=== PATIENT | male | born 1955 | race Caucasian/White ===

== ENCOUNTER → 2018-08-10 07:22 | Outpatient (CLI) | payer BC, SELFPAY ==
[2018-08-10 09:39] LABS: Alanine Aminotransferase 35 U/L (12-78); Albumin Level 3.9 gm/dL (3.4-5.0); Albumin/Globulin Ratio 1.3 (1.1-1.8); Alkaline Phosphatase 76 U/L (46-116); Anion Gap 14.7 mEq/L (5-15); Aspartate Amino Transferase 18 U/L (15-37); Bilirubin,Total 0.4 mg/dL (0.2-1.0); Blood Urea Nitrogen 32 mg/dL (7-18); Calcium 8.7 mg/dL (8.5-10.1); Carbon Dioxide 28 mmol/L (21.0-32.0); Chloride 105 mmol/L (98-107); Chol/HDL Ratio 2.8 (1-3.5); Cholesterol 159 mg/dL (140-200); Creatinine,Serum 1.05 mg/dL (0.70-1.30); Estimated Glomerular Filt Rate 71 ml/min (>60); GFR (African American) 86 ML/MIN (>60); Glucose 94 mg/dL (74-106); HDL Cholesterol 56 mg/dL (27-67); LDL Cholesterol 78 mg/dL (0-130); Potassium 4.7 mmoL/L (3.5-5.1); Sodium 143 mmol/L (136-145); Thyroid Stimulating Hormone 2.98 uIU/ml (0.358-3.740); Total Protein,Serum 6.9 gm/dL (6.4-8.2); Triglycerides 123 mg/dL (30-200); VLDL Cholesterol 25 mg/dL (0-40)
== END ==
PROVIDERS: Visit Provider Family Medicine
DX: E03.9 Hypothyroidism, unspecified (principal); E78.5 Hyperlipidemia, unspecified; I10 Essential (primary) hypertension
CPT/HCPCS: 36415; 80053; 80061; 84443

== ENCOUNTER → 2019-09-27 11:17 | Outpatient (CLI) | payer BC, SELFPAY ==
--- NOTE | 2019-09-27 11:21 | XR_ITS ---
PROCEDURE: XR CERVICAL SPINE 5V CLINICAL INDICATION: CERVICALGIA Left-sided neck pain with headache COMPARISON: No exams were available for comparison FINDINGS: Prior anterior cervical disc fusion at C5-C6 and C6-C7 with anterior bone plate. Prominent anterior osteophyte is present at the inferior aspect C4 anteriorly. Minimal foraminal narrowing at C4-C5 and C5-C6 on the right, C4-C5 C5-C6 and C6-C7 on the left. Minimal cervical curvature convex left. No fracture or dislocation. No lytic or blastic change. No evidence of cervical rib. IMPRESSION: Postsurgical changes with mild cervical spondylosis as described above. Dictated by: John Thayer MD 09/27/2019 13:45 Electronically signed by John Thayer MD in [place] 09/27/2019 13:45
== END ==
PROVIDERS: PCP Family Medicine; Visit Provider Family Medicine
DX: M54.2 Cervicalgia (principal)
CPT/HCPCS: 72050

== ENCOUNTER 2020-11-11 14:44 | Emergency (ER) | payer OTHER, SELFPAY ==
[2020-11-11] VITALS (9 sets, daily range): BP systolic 124–227; BP diastolic 78–124; PULSE 67–106; RESP 16–20; TEMP 36.8–36.9; O2SAT 96–98; BMI 29.0
--- NOTE | 2020-11-11 15:03 | CT_ITS ---
PROCEDURE: CT HEAD/BRAIN WO CON CLINICAL INDICATION: neck pain Neck pain x2 weeks, no fall or injury. Hypertension. COMPARISON: No exams were available for comparison TECHNIQUE: Axial images obtained. All CT scans at the facility use one or more dose reduction, viz: automated exposure control, ma/kV adjustment per patient size (including targeted exams where dose is matched to indication, i.e. head), or iterative reconstruction technique. FINDINGS: There is no hydrocephalus. There is no hemorrhage. There is no mass, or mass effect. There is no CT evidence of acute infarct (clinical exam and MRI are more sensitive). The cerebellar tonsils are ectatic and cause mild crowding of the structures in the foramen magnum. This is nonspecific and usually asymptomatic, correlate to determine if this is related to patient's symptoms. There are no areas of encephalomalacia visible by CT. There are no abnormal fluid collections. The mastoid air cells and middle ears are clear. The calvarium is intact. There is degenerative change of the right temporomandibular joint. Paranasal sinuses are clear. Minimal visualization of the surrounding structures is unremarkable. IMPRESSION: Ectatic cerebellar tonsils of doubtful clinical significance see comments above. Other minor findings as described above. Dictated by: Mayte Ramirez MD 11/11/2020 16:17 Mayte Ramirez MD in [facility] 11/11/2020 16:17
--- NOTE | 2020-11-11 15:03 | CT_ITS ---
PROCEDURE: CT CERVICAL SPINE WO CON CLINICAL INDICATION: neck pain Neck pain x2 weeks. No fall or injury. COMPARISON: CR XR CERVICAL SPINE 5V from 09/27/2019 TECHNIQUE: Axial images obtained with sagittal and coronal reformats. All CT scans at the facility use one or more dose reduction, viz: automated exposure control, ma/kV adjustment per patient size (including targeted exams where dose is matched to indication, i.e. head), or iterative reconstruction technique. Axial spiral CT scanning performed of the cervical spine beginning at the base of the skull and continuing to the upper T-spine. 3-D multiplanar reconstruction with 3-D manipulation of volumetric data set in image rendering was completed by the radiologist and/or technologist with the supervision of the radiologist on independent workstation. FINDINGS: Patient has had prior anterior plate and screw fixation of C5, C6, and C7. There is no acute fracture. Metallic artifact obscures the prevertebral soft tissues of the lower cervical spine. There is no prevertebral soft tissue swelling edema within the upper and mid cervical spine. There is straightening of the normal lordosis of the cervical spine partly secondary to prior surgery however superimposed component muscles of this suspected. There is diffuse endplate osteophyte disc bulge at C4-5 which causes narrowing of the right greater than left neural foramina. At C5-6, diffuse endplate osteophyte disc bulge and uncovertebral degenerative change causes narrowing of right portions of the spinal canal and is bony narrowing, at least moderate of the bilateral neural foramina. At C6-7 there is mild diffuse endplate osteophyte disc bulge which causes moderate bony narrowing of the left neural foramen. The remaining cervical levels demonstrate no significant narrowing and only mild or minimal degenerative change. Thyroid gland is markedly atrophic and there is possibly been resection of the right lobe and isthmus. Correlate with surgical history. There are several calcifications in the right tonsillar pillar which suggests chronic or recurrence tonsillitis. There is typical asymmetry of the oral, pharyngeal, hypo pharyngeal soft tissues. Medial deviation of the right focal cord suggests right vocal cord paralysis. There is scattered bilateral nuchal lymph nodes typical in size and number for an asymptomatic patient. There is marked tortuosity of the left internal carotid artery medially to lie posterior to the hypopharynx displacing the soft tissues anteriorly. Partial assessment of the remaining immediately surrounding structures is otherwise unremarkable. IMPRESSION: 1. No acute fracture or dislocation. 2. Suspected muscle spasm 3. Scattered degenerative findings and mild spinal canal narrowing and several levels of moderate foraminal narrowing which could impinge on the respective exiting cervical nerve roots. 4. Other nonacute findings as described above. Dictated by: Mayte Ramirez MD 11/11/2020 16:28 Mayte Ramirez MD in [place] 11/11/2020 16:28
--- NOTE | 2020-11-11 15:38 | HMH.EDGENADL ---
ED Disposition Clinical Impression: Cervical disc disease Headache Qualifiers: Headache type: unspecified Headache chronicity pattern: chronic headache Intractability: intractable Qualified Code(s): R51.9 - Headache, unspecified Hypertension Qualifiers: Hypertension type: essential hypertension Qualified Code(s): I10 - Essential (primary) hypertension Disposition: Home, Self-Care Condition on Discharge: Fair Instructions: DI for Neck Pain, DI for Headache Additional Instructions: Additional instructions for HEADACHE: See your physician as soon as possible for further evaluation. Return immediately if worsening headache, vomiting, problems with vision or speech, fever, numbness or weakness of the extremities, neck pain or stiffness. Additional instructions for NECK PAIN: See your physician as soon as possible for further evaluation. Return immediately if neck pain becomes intolerable, or if fever, numbness or weakness of your arms or legs, loss of control of your bowels or bladder. Additional instructions for CONTROLLED SUBSTANCES: You have been prescribed a medication that is a controlled substance. Controlled substances include pain medications known as opiates and sedative nerve medications known as benzodiazepines. Tramadol, fioricet, and gabapentin are also controlled substances. Some common opiates include: Codeine (such as Tylenol #3) Hydrocodone (Vicodin, Lortab, Lorcet, [place]) Oxycodone (Percocet, Percodan, Oxycodone, Oxy IR) Some common benzodiazepines include: Diazepam (Valium) Lorazepam (Ativan) Alprazolam (Xanax) Clonazepam (Klonopin) Oxazepam (Serax) All of these controlled substances are highly addictive and frequently abused. Misuse can and frequently does lead to addiction as well as overdose and . Medication should be stored in a locked cabinet or other secure storage unit. Do not store the medication in a motor vehicle. Short term supplies, 3 days or less, are prescribed because of the highly addictive nature of the medication. Any of the controlled substance medication NOT taken should be disposed of properly and NOT SAVED. The recommended method of disposing of unused medications is: Place the medicines in a sealable plastic bag. If the medicine is a solid, crush it or add water to dissolve it. Add something undesirable (cat litter, coffee grounds, etc.) Dispose of sealed bag in household trash Do not flush or pour unused medicines down a sink or drain. Controlled substances should not be shared, given away or sold. Because of the addictive nature and frequent abuse, these medications are sometimes stolen. These medications should be kept in a safe place where they cannot be stolen. Do not keep them in your car or purse. Lost or stolen prescriptions for controlled substances WILL NOT BE REFILLED in this emergency department, regardless of whether a police report was filed. Prescriptions: Oxycodone HCl/Acetaminophen [Percocet 5/325mg tablet] 1 tab PO Q6HP PRN #15 tablet PRN Reason: Moderate To Severe Pain Transmission Status: Sent to [facility] Referrals: [place] MD [Primary Care Provider] - - Critical Care Critical Care Time: No Attestation: On 11/11/20, the high probability of a clinically significant, sudden or life threatening deterioration of the following system(s) required my full and direct attention, intervention and personal management. The time I documented below is in addition to time spent performing reported procedures but includes the following listed in this critical care notation. Medical Decision Making - Jorge Inquiry Pt receiving controlled substance: Yes Jorge was queried for this patient: Yes Risks and benefits of using a controlled substance: were discussed with pt by me Comment: no rxs. Vital Signs: 11/11/20 14:45 11/11/20 15:54 11/11/20 16:00 Temperature 98.2 F Temperature Source Oral Pulse
--- NOTE | 2020-11-11 17:00 | PC.NURSE ---
Harding visitor yelling for help, found pt standing at the sink, pale and clammy. He advised he felt very dizzy and nauseated. Pt was assisted by myself and into the bed and Dr. Segovia came to the bedside. Pt denied any chest pain and just advises he felt dizzy. Pt given cool rag and laid back in the bed. Pressure obtained and it had decreased quite a bit. Pt advises he just felt nauseated. Rail placed up and pt given call and lights dimmed, advised him to lay still for a few moments and rest.
--- NOTE | 2020-11-11 17:45 | PC.NURSE ---
Pt sitting up in the bed with rag on his head, color has returned to pt face and he advises he is feeling better
--- NOTE | 2020-11-11 17:54 | PC.NURSE ---
Patient assisted to stand, patient able to stand and ambulate without difficulty, denies dizziness. MD notified.
== END 2020-11-11 18:13 | disposition home or self-care (01) ==
PROVIDERS: Emergency Provider Emergency Medicine; PCP Family Medicine
DX: S16.1XXA Strain of muscle, fascia and tendon at neck level, initial encounter (principal); X50.0XXA Overexertion from strenuous movement or load, initial encounter; Y92.69 Other specified industrial and construction area as the place of occurrence of the external cause; Y99.0 Civilian activity done for income or pay; M50.90 Cervical disc disorder, unspecified, unspecified cervical region
CPT/HCPCS: 70450; 72125; 99283

== ENCOUNTER 2020-11-13 09:08 | Observation (INO) | payer BC, MEDICARE, SELFPAY ==
[2020-11-13] VITALS (50 sets, daily range): BP systolic 145–225; BP diastolic 70–115; PULSE 53–88; RESP 10–22; TEMP 36.3–36.8; O2SAT 91–100; BMI 28.1; BMI 28.0
--- NOTE | 2020-11-13 09:05 | ECG_ITS ---
APPROVED REPORT Exam: Resting ECG HR:79 bpm ECG Measurements Heart Rate 79 AXES OR 152 P 54 QRSd 78 QRS -39 QT 388 T 14 QTc 444 Conclusion Normal sinus rhythm Left axis deviation Moderate voltage criteria for LVH, may be normal variant Abnormal ECG Electronically signed by : Ayaz Mariano, 11/13/2020 14:54:17
--- NOTE | 2020-11-13 09:10 | HMH.EDGENADL ---
ED Disposition Clinical Impression: Uncontrolled hypertension, Elevated troponin, Neck pain Chest pain Qualifiers: Chest pain type: unspecified Qualified Code(s): R07.9 - Chest pain, unspecified Headache Qualifiers: Headache type: unspecified Headache chronicity pattern: chronic headache Intractability: intractable Qualified Code(s): R51.9 - Headache, unspecified Disposition: Admitted as Observation Condition on Discharge: Fair - Critical Care Critical Care Time: Yes Attestation: On , the high probability of a clinically significant, sudden or life threatening deterioration of the following system(s) required my full and direct attention, intervention and personal management. The time I documented below is in addition to time spent performing reported procedures but includes the following listed in this critical care notation. Total Critical Care Time: 30 Vital system(s) involved:: Circulatory Failure My critical care processes included: Assessment & monitoring of V/S, Initial and Re-exams, Data Review/Interpretation, Coordinating Care, Medication Orders and management, Documentation Medical Decision Making - Medical Records Medical records reviewed: Yes: I reviewed the patient's medical records. MR Comment: prior [facility], see below - Jorge Inquiry Pt receiving controlled substance: Yes Jorge was queried for this patient: No Reason not queried -: Emergent pt cond-no time Risks and benefits of using a controlled substance: were not discussed with pt by me Vital Signs: 11/13/20 09:09 11/13/20 09:30 11/13/20 09:40 Temperature 97.8 F Temperature Source Oral Pulse Rate [Right Radial] 88 79 80 Respiratory Rate 18 18 18 Blood Pressure [Left Arm] Blood Pressure [Right Arm] 220/114 H 207/114 H 207/110 H Blood Pressure Mean [Left Arm] Blood Pressure Mean [Right Arm] 149 145 142 Blood Pressure Source [Left Arm] Blood Pressure Source [Right Arm] Automatic Cuff Automatic Cuff Automatic Cuff Blood Pressure Position [Left Arm] Blood Pressure Position [Right Arm] Sitting Sitting Sitting 02 Sat by Pulse Oximetry 96 97 97 Oxygen Delivery Method Room Air Room Air Oxygen Flow Rate (LPM) 11/13/20 09:50 11/13/20 10:00 11/13/20 10:10 Temperature Temperature Source Pulse Rate [Right Radial] 76 84 71 Respiratory Rate 18 Blood Pressure [Left Arm] Blood Pressure [Right Arm] 188/104 H 199/104 H 225/110 H Blood Pressure Mean [Left Arm] Blood Pressure Mean [Right Arm] 132 135 148 Blood Pressure Source [Left Arm] Blood Pressure Source [Right Arm] Blood Pressure Position [Left Arm] Blood Pressure Position [Right Arm] Sitting 02 Sat by Pulse Oximetry 96 97 94 L Oxygen Delivery Method Room Air Room Air Oxygen Flow Rate (LPM) 11/13/20 10:16 11/13/20 10:30 11/13/20 11:00 Temperature Temperature Source Pulse Rate [Right Radial] 83 80 65 Respiratory Rate 18 18 12 Blood Pressure [Left Arm] Blood Pressure [Right Arm] 205/112 H 225/110 H 186/87 H Blood Pressure Mean [Left Arm] Blood Pressure Mean [Right Arm] 143 148 120 Blood Pressure Source [Left Arm] Blood Pressure Source [Right Arm] Automatic Cuff Automatic Cuff Automatic Cuff Blood Pressure Position [Left Arm] Blood Pressure Position [Right Arm] Sitting Left Lateral Sitting 02 Sat by Pulse Oximetry 92 L 98 99 Oxygen Delivery Method Nasal Cannula Room Air Oxygen Flow Rate (LPM) 2 11/13/20 11:10 11/13/20 11:20 11/13/20 11:30 Temperature Temperature Source Pulse Rate [Right Radial] 69 67 60 Respiratory Rate Blood Pressure [Left Arm] Blood Pressure [Right Arm] 170/89 H 173/87 H 172/80 H Blood Pressure Mean [Left Arm] Blood Pressure Mean [Right Arm] 116 115 110 Blood Pressure Source [Left Arm] Blood Pressure Source [Right Arm] Blood Pressure Position [Left Arm] Blood Pressure Position [Right Arm] 02 Sat by Pulse Oximetry 98 99 99 Oxygen Delivery Method Nasal Cannula Nasal Cannul
--- NOTE | 2020-11-13 09:14 | XR_ITS ---
PROCEDURE: XR CHEST PORTABLE CLINICAL HISTORY: chest pain COMPARISON: CR CXR CHEST(2 VIEWS-NOT PORTABLE) from 01/22/2016 FINDINGS: There are well expanded. There is no definite pneumonic infiltrate and there is no pleural fluid. There is borderline cardiomegaly however is no pulmonary congestion. There has been a previous anterior cervical fusion. IMPRESSION: Borderline cardiomegaly, no acute chest pathology noted Dictated by: Dr. Rob Cloud MD 11/13/2020 10:10 Dr. Rob Cloud MD in [place] 11/13/2020 10:10
[2020-11-13 09:23] LABS: Basophils % 0.4 % (0.1-2.0); Eosinophils # 0.2 K/mm3 (0.0-0.4); Eosinophils % 2.2 % (0.1-12.0); Hematocrit 38.5 % (42.0-52.0); Hemoglobin 12.5 g/dL (14.1-18.0); Lymphocytes % 12.7 % (10-50); Mean Corpuscular HGB Conc 32.4 g/dL (31.8-35.4); Mean Corpuscular Hemoglobin 28.4 pg (27.0-31.2); Mean Corpuscular Volume 87.7 fl (80-94); Mean Platelet Volume 7.7 fl (7.4-10.4); Monocytes # 0.4 K/mm3 (0.1-1.0); Monocytes % 5.7 % (1.7-9.3); Neutrophils # 5.9 K/mm3 (1.8-7.8); Neutrophils % 78.9 % (37.0-80.0); Platelet Count 195 K/mm3 (142-424); Red Blood Count 4.39 M/mm3 (4.60-6.20); Red Cell Distribution Width 14.5 % (11.5-17.5); White Blood Count 7.5 K/mm3 (4.8-10.8)
--- NOTE | 2020-11-13 09:23 | PC.NURSE ---
rad at BS for portable xray
[2020-11-13 09:25] LABS: Chloride 108 mmol/L (98-107); Sodium 140 mmol/L (136-145)
[2020-11-13 09:28] LABS: Blood Urea Nitrogen 29 mg/dl (9-20); Creatinine Clearance Estimated 84 mL/min (50-200); Estimated Glomerular Filt Rate 75 ml/min (>60); GFR (African American) 90 ML/MIN (>60)
[2020-11-13 09:29] LABS: Anion Gap 3.7 mEq/L (5-15); Calcium 8.6 mg/dl (8.4-10.2); Carbon Dioxide 31 mmol/L (22.0-30.0); Glucose 109 mg/dl (74-100)
--- NOTE | 2020-11-13 09:30 | PC.NURSE ---
notified ER of critical potassium
[2020-11-13 09:31] LABS: Potassium 2.7 mmoL/L (3.5-5.1)
--- NOTE | 2020-11-13 09:51 | PC.NURSE ---
notified shanell huang for cardiology of pt per ER request
--- NOTE | 2020-11-13 09:52 | PC.NURSE ---
nitro drip increased to 10 mcg/min at this time.
--- NOTE | 2020-11-13 09:53 | PC.NURSE ---
DR CHINCHILLA SPEAKING WITH DR BRISCOE
--- NOTE | 2020-11-13 09:58 | PC.NURSE ---
shanell huang at gave verbal order given per shanell huang for echo , notified cv lab of order for pt-spoke with avi
--- NOTE | 2020-11-13 10:00 | CA_ITS ---
APPROVED REPORT EXAM: Comprehensive 2D, Doppler, and color-flow Echocardiogram Health Benefits Specialist: Martine Foley RT(R) Ht: 5 ft 7 in Wt: 180lbs BSA: 1.93 BP: 222/114 mmHg Indications: CP, HTN, SOB, neck pain 2D Dimensions LVOT 1.96 cm (M/F) 1.5-2.5 LVEF (Harp's) 51.20 % M: 52 - 72 LV Volume 135.80 mL M: 62 - 150 LV Volume Index 70.36 mL/m2 M: 34 - 74 LA Volume 47.50 mL LA Volume Index 24.61 mL/m2 (M/F) 16-34 M-Mode Dimensions RVDd 2.88 cm (0.9-2.6) LA Diam 3.91 cm (1.9-4.0) LVDd 5.45 cm (3.5-5.7) Ao Diam 2.66 cm (2.0-3.7) LVDs 3.72 cm (3.5-5.7) IVSd 0.96 cm (0.6-1.1) PWd 1.00 cm (0.6-1.1) EF (Teich) 59.20% FS 31.70% EDV (Teich) 144.40 mL ESV (Teich) 58.90 mL LV Diastology E Decel Time 210.00 (160-240 msec) E/A Ratio 0.5 MED E' 4.60 (< 7 cm/sec) E'/MED E' Ratio 13.04 (>14) LAT E' 5.20 (<10 cm/sec) E/LAT E' Ratio 11.54 (>14) Aortic Valve LVOT Max 153.00 (70-110 cm/s) LVOT VTI 31.16 cm AoV Peak Noe. 179.00 (50-130 cm/s) AI PHT 740.00 ms AO Peak GR. 12.80 mmHg AO Mean GR. 7.10 (<5 mmHg) AO VTI 33.98 (18-25 cm) AI (VTI) 2.77 (2.5-4.5 cm2) Mitral Valve MV E Max Noe. 60.00 (40-130 cm/s) MV A Velocity 111.00 (40-130 cm/s) E/A Ratio 0.54 MV Decel. Time 210.00 (160-240 ms) MV PHT 62.00 ms Left Ventricle Left atrium is mildly enlarged, left ventricle is normal size, mild concentric left ventricular hypertrophy, visually estimated ejection fraction 55% with no regional wall motion abnormality, grade 1 diastolic dysfunction seen without tissue Doppler evidence of raise left atrial pressure. Right Ventricle Right atrium is normal size, right ventricle is mildly enlarged with normal contractility. Aortic Valve Aortic valve is minimally thickened and fibrosed, there is no aortic stenosis, there is mild aortic insufficiency. Mitral Valve Mitral valve is grossly normal, there is trace mitral regurgitation. Tricuspid Valve Tricuspid valve is grossly normal, there is trace tricuspid regurgitation, tricuspid regurgitation jet velocity is inadequate for calculation of the right ventricular systolic pressure. Pulmonic Valve Pulmonic valve is poorly visualized. Great Vessels Aortic root is of normal size. Pericardium No significant pericardial effusion noted. Conclusion 1. Mildly enlarged left atrium, normal left ventricular size, mild concentric left ventricular hypertrophy, visually estimated ejection fraction 55% with no regional wall motion abnormality, grade 1 diastolic dysfunction seen without tissue Doppler evidence of raise left atrial pressure. 2. Mildly enlarged right ventricle with normal contractility. 3. Mild aortic, mild mitral and tricuspid regurgitation. 4. No significant pericardial effusion noted. Electronically signed by : Shahriar Peralta, 11/13/2020 11:02:57
--- NOTE | 2020-11-13 10:15 | PC.NURSE ---
nitro drip titrated up to 15 mcg/min at this time
[2020-11-13 10:16] LABS: Thyroid Stimulating Hormone 3.92 uIU/mL (0.465-4.68)
--- NOTE | 2020-11-13 10:16 | PC.NURSE ---
cv lab staff at for echo
--- NOTE | 2020-11-13 10:31 | PC.NURSE ---
nitro drip increased to 20mcg/min
--- NOTE | 2020-11-13 10:36 | PC.NURSE ---
notified care management of admission
--- NOTE | 2020-11-13 10:41 | HMH.CNCARD ---
History of Present Illness Consult date: 11/13/20 Requesting physician: [place] Consult reason: chest pain Chief complaint: CP, Neck pain, HTN urgency Additional Medical History:: 1. Normal coronary arteries, left heart catheterization, 2016, Dr. Telly Lim 2. Hypertension A. Hypertensive urgency, 11/13/2020 with elevated troponin but echocardiogram showing preserved ejection fraction. Elevated troponin felt secondary to demand ischemia related to the hypertensive urgency. 3. Hyperlipidemia 4. History of cervical neck surgery involving removal of 2 discs and use of cadaver bone and rods/pins. A. Injury at work, 10/2019 with reaggravation of prior neck issues. History of present illness: 65-year-old white male seen in the emergency department for chest discomfort and elevated blood pressure. Patient relates neck surgery in 2015 with a recent injury at work earlier this month reaggravating the symptoms. He was seen in the ER 2 days ago for severe head and neck pain with a negative work-up. During that time he was noted to have elevated blood pressure and was treated with p.o. clonidine with subsequent improvement in blood pressure but some orthostatic symptoms that resolved during the ER visit. Today patient states he felt his blood pressure was elevated and after being checked at work was transported via EMS to ER for further evaluation. Patient is currently on a nitroglycerin drip and will titrated up to achieve a systolic blood pressure around 170 mmHg. Patient has been taking 3 [id number] ibuprofen every 5 hours since his recent neck injury earlier this month. This may be adding to his elevated blood pressure but he suspects that most of his blood pressure elevation is related to his severe neck pain. Periodic home blood pressure checks have never been this high. [facility] History Medical History: Denies:: Diabetes Mellitus Type 1, Diabetes Mellitus Type 2, MRSA *Have you ever received a pneumonia vaccine?: No *Have you received a flu vaccine this season?: No Amputation: No Fractures: No - *Social History Smoking Status: Never smoker Alcohol Intake: never *Occupational Status:: employed *Travel in the last 8 weeks: [place] Family Hx:: Non-contributory Meds Home Medications Medication Instructions Recorded Confirmed Type Oxycodone HCl/Acetaminophen 1 tab PO Q6HP PRN #15 tab 11/11/20 11/13/20 Rx [Percocet 5/325mg tablet] Fenofibrate 160 mg PO DAILY 11/13/20 11/13/20 History Levothyroxine Sodium 88 mcg PO DAILY 11/13/20 11/13/20 History [Levothyroxine 88mcg (0.088mg) Tab] Losartan/Hydrochlorothiazide 1 each PO DAILY 11/13/20 11/13/20 History [Losartan-Hctz 50-12.5 mg Tab] Meloxicam 15 mg PO DIRECTED 11/13/20 11/13/20 History Omeprazole [Omeprazole 20mg Tab] 20 mg PO DAILY 11/13/20 11/13/20 History Simvastatin 40 mg PO HS 11/13/20 11/13/20 History Trazodone HCl 50 mg PO DIRECTED 11/13/20 11/13/20 History Allergies Allergy/AdvReac Type Severity Reaction Status Date / Time Penicillins Allergy Intermediate I-RASH Verified 11/13/20 09:28 Exam Vital signs and Labs for Last 24 Hours: Temp Pulse Resp BP Pulse Ox 97.8 F 80 18 225/110 H 98 11/13/20 09:09 11/13/20 10:30 11/13/20 10:30 11/13/20 10:30 11/13/20 10:30 Laboratory Results - last 24 hr 11/13/20 09:10: WBC 7.5, RBC 4.39 L, Hgb 12.5 L, Hct 38.5 L, MCV 87.7, MCH 28.4, MCHC 32.4, RDW 14.5, Plt Count 195, MPV 7.7, Neut % (Auto) 78.9, Lymph % (Auto) 12.7, [place] % (Auto) 5.7, Eos % (Auto) 2.2, Baso % (Auto) 0.4, Neut # (Auto) 5.9, Lymph # (Auto) 1.0, [place] # (Auto) 0.4, Eos # (Auto) 0.2, Baso # (Auto) 0.0 11/13/20 09:10: Sodium 140, Potassium 2.7 L*, Chloride 108 H, Carbon Dioxide 31 H, Anion Gap 3.7 L, BUN 29 H, Creatinine 1.00, Estimated Creat Clear 84, Estimated GFR 75, Est GFR ( Amer) 90, Glucose 109 H, Calcium 8.6, Troponin I 0.20 H 11/13/20 09:10: TSH 3.92 I & O for Last 24
--- NOTE | 2020-11-13 11:05 | P.CONPHA_ITS ---
[facility] VTE Monitoring - Patient Demographics Admission date: 11/13/20 Report Date: 11/13/20 Time: 11:05 Allergies/Adverse Reactions: Patient Allergies Penicillins Allergy (Intermediate, Verified 11/13/20 09:28) I-RASH Height: 1.7 m Weight: 81.647 kg Patient Problems: Current Active Problems Headache (Acute) Chest pain (Acute) Uncontrolled hypertension (Acute) Elevated troponin (Acute) Neck pain (Acute) - VTE Risk Labs: VTE Related Lab Results Hgb 12.5 g/dL (14.1-18.0) L 11/13/20 09:10 Hct 38.5 % (42.0-52.0) L 11/13/20 09:10 Plt Count 195 K/mm3 (142-424) 11/13/20 09:10 BUN 29 mg/dl (9-20) H 11/13/20 09:10 Creatinine 1.00 mg/dl (0.66-1.25) 11/13/20 09:10 Estimated Creat Clear 84 mL/min (50-200) 11/13/20 09:10 - Prophylaxis VTE Prophylaxis Ordered?: Yes Types of VTE Prophylaxis: TEDS Knee High Location of Applied Device: Bilateral Lower Extremeties
--- NOTE | 2020-11-13 11:15 | PC.NURSE ---
Addendum entered by Kendy Angulo RN 11/13/20 11:36: correction sbp 170 Original Note: nitro drip titrated down 15 mcg/min r/t Sbp 172 will continue to monitor
--- NOTE | 2020-11-13 11:15 | HMH.HP ---
*Admission Date: 11/13/20 <Dilma Carrero 11/13/20 11:20> *Chief complaint: chest pain <Dheeraj Carreroa 11/13/20 11:20> *History of present illness: 65-year-old white male seen in the emergency department for chest discomfort and elevated blood pressure. Patient relates neck surgery in 2016 with a recent injury at work earlier this month reaggravating the symptoms. He was seen in the ER 2 days ago for severe head and neck pain with a negative work-up. During that time he was noted to have elevated blood pressure and was treated with p.o. clonidine with subsequent improvement in blood pressure but some orthostatic symptoms that resolved during the ER visit. Today patient states he felt his blood pressure was elevated and after being checked at work was transported via EMS to ER for further evaluation. Patient is currently on a nitroglycerin drip and will titrate up to achieve a systolic blood pressure around 170 mmHg. Patient has been taking 3 [id number] ibuprofen every 5 hours since his recent neck injury earlier this month. This may be adding to his elevated blood pressure but he suspects that most of his blood pressure elevation is related to his severe neck pain. Periodic home blood pressure checks have never been this high. (above as per Davi Hammer) The patient is now on the second floor and at this time he is feeling a little bit better. His neck pain has improved. He continues with a headache. His blood pressure has also improved on the nitroglycerin drip. <AliseDilma 11/13/20 17:14> [facility] History I have reviewed the patient's past medical history: Yes <Dilma Carrero 11/13/20 11:20> Medical History: Reports:: BPH, Gastroesophageal Reflux Disease(GERD), Hyperlipidemia, Hypertension Denies:: Diabetes Mellitus Type 1, Diabetes Mellitus Type 2, MRSA <Dilma Carrero 11/13/20 11:20> *Have you ever received a pneumonia vaccine?: No <Dilma Carrero 11/13/20 11:20> *Have you received a flu vaccine this season?: No <Dilma Carrero 11/13/20 11:20> Other Medical History: Reports: Hypothyroidism, Other (Cervical radiculopathy) <Dilma Carrero 11/13/20 11:20> Other Surgeries: Yes: Cardiac Catheterization, Colonoscopy, Thyroidectomy (partial), Other (Cervical discectomy) <Dheeraj Carreroa 11/13/20 11:20> [facility]: [facility] 11[facility]> Fractures: No <[facility] 11/13/20 11:20> - *Social History Smoking Status: Never smoker <AliseDilma 11/13/20 11:20> Alcohol Intake: never <[facility] 11/13/20 11:20> *Occupational Status:: employed <AliseDilma 11/13/20 11:20> *Travel in the last 8 weeks: Inside the [place] <Dilma Carrero 11/13/20 11:20> Family Hx:: Coronary Artery Disease <[facility] 11/13/20 11:20> Review of Systems - Constitutional Reports weakness, Denies fever(s) <[facility] 11/13/20 17:14> - Eyes Denies blurry vision, Denies double vision <[facility] 11/13/20 17:14> - ENT Denies nasal congestion, Denies sore throat <[facility] 11/13/20 17:14> - *Cardiovascular Reports chest pain, Reports rapid, pounding, or irregular heartbeat, Denies shortness of breath <[facility] 11/13/20 17:14> - *Respiratory Denies cough, Denies shortness of breath <[facility] 11/13/20 17:14> - *Gastrointestinal Reports nausea, Reports vomiting, Denies abdominal pain, Denies loose stools <[facility] 11/13/20 17:14> - *Genitourinary Denies difficulty urinating, Denies painful urination <[facility] 11/13/20 17:14> - *Musculoskeletal Reports neck pain <[facility] 11/13/20 17:14> - *Neurologic Reports headache(s), Reports numbness (chronic in median n. distribution both hands.), Reports dizziness, Reports weakness <[facility] 11/13/20 17:14> Meds Home Medications Medication Instructions Recorded Confirmed Type Oxycodone HCl/Acetaminophen 1 tab PO Q6HP PRN #15 tab 11/11/20 11/13/20 Rx [Percocet 5/325mg tab
--- NOTE | 2020-11-13 11:53 | PC.NURSE ---
pt had an episode of sudden vomitting, notified ER MD, Zofran given per IV as ordered per ER MD by verbal order
--- NOTE | 2020-11-13 11:59 | HMH.PHAINT ---
MEDICATION RECONCILIATION COMPLETED ON PATIENT USING EXTERNAL FILL HISTORY FROM PHARMACY, LIST FROM [facility] OFFICE, AND RUTH REPORT. -LAURENT DUFFYD
--- NOTE | 2020-11-13 12:21 | PC.NURSE ---
per lab 35 minutes left on covid swab result
--- NOTE | 2020-11-13 12:25 | PC.NURSE ---
notified ER MD pt is c/o feeling weird , pt is pale in color, states his chest feels hollow . ER MD to bs and gave verbal orders.
--- NOTE | 2020-11-13 12:29 | ECG_ITS ---
APPROVED REPORT Exam: Resting ECG HR:56 bpm ECG Measurements Heart Rate 56 AXES MO 148 P 47 QRSd 82 QRS -42 QT 438 T -36 QTc 422 Conclusion Sinus bradycardia Left axis deviation Moderate voltage criteria for LVH, may be normal variant Nonspecific T wave abnormality Abnormal ECG Electronically signed by : Ayaz Mariano, 11/13/2020 20:09:31
--- NOTE | 2020-11-13 13:03 | CT_ITS ---
PROCEDURE: CT ANGIO CHEST and CT angio neck CLINCIAL INDICATION: chest, neck pain, htn, r/o dissection COMPARISON: CR CXR CHEST(2 VIEWS-NOT PORTABLE) from 01/22/[address] CERVICAL SPINE WO CON from 11/11/2020 TECHNIQUE: IV Contrast: 70ML Isovue 370 Axial images obtained with sagittal and coronal reformats. All CT scans at the facility use one or more dose reduction, viz: automated exposure control, ma/kV adjustment per patient size (including targeted exams where dose is matched to indication, i.e. head), or iterative reconstruction technique. FINDINGS: There is mild peripheral fibrotic change versus atelectasis. There is no infiltrate. There is no suspicious thoracic adenopathy. Patient had prior cholecystectomy. There is a small hiatal hernia. Minimal visualization of the upper abdomen is otherwise unremarkable. Patient has had prior anterior plate and screw fixation of C5, C6, and C7. There is excellent opacification of the thoracic vasculature. There is no thoracic aortic aneurysm or dissection. The pulmonary arteries are well opacified and demonstrate no pulmonary embolus. The aortic arch has a normal configuration. There is marked tortuosity of the great vessels. The origins of the great vessels are widely patent. The right brachiocephalic artery is widely patent. Right common carotid artery is normal in diameter without stenosis or calcified plaque. Right internal carotid artery is markedly tortuous but normal in diameter. Right external carotid artery is normal in appearance. The left common carotid artery is widely patent at the origin but extremely tortuous without significant narrowing. The left carotid bifurcation extends nearly to midline causing anterior displacement of the soft tissues of the hypopharynx. The left internal carotid artery has a normal diameter to the level of the skull base. The left external carotid artery is unremarkable. The right vertebral artery origin is widely patent. There is marked tortuosity of the right vertebral artery with a focal area of buckling within the right C2 transverse foramen which only appears to cause mild narrowing and no distal dilatation. The right vertebral artery otherwise maintains a normal diameter in appearance to the confluence of the base of the basilar artery. The left vertebral artery origin is patent. There is marked tortuosity of the proximal left vertebral artery which carolin proximally in causes mild narrowing. There is no poststenotic narrowing. Multilevel tortuosity of the left vertebral artery is present throughout the remainder of its course with no additional areas of narrowing. There is a 2 millimeter by 3 mm there right internal carotid artery aneurysm visible on neck CT angiogram images 53 and 54. The bilateral internal carotid arteries and the basilar artery otherwise demonstrate normal diameter and appearance as they traverse the skull base. IMPRESSION: 1. Negative for aortic dissection 2. 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 3. Severe tortuosity of the great vessels and vasculature of the neck causing areas of mild narrowing. Dictated by: Mayte Ramirez MD 11/13/2020 15:34 Mayte Ramirez MD in [place] 11/13/2020 15:34
--- NOTE | 2020-11-13 13:04 | CT_ITS ---
Procedure: CT ANGIO NECK CLINICAL HISTORY: vertigo COMPARISON: Refer to CT angiogram of the chest on the same date which also includes CT angiogram of the neck findings. TECHNIQUE: IV Contrast: 100ml Isovue 370 Axial images obtained with sagittal and coronal reformats. All CT scans at the facility use one or more dose reduction, viz: automated exposure control, ma/kV adjustment per patient size (including targeted exams where dose is matched to indication, i.e. head), or iterative reconstruction technique. FINDINGS: Refer to CT angiogram of the chest on the same date which also includes CT angiogram of the neck findings IMPRESSION: Refer to CT angiogram of the chest on the same date which also includes CT angiogram of the neck findings Dictated by: Mayte Ramirez MD 11/13/2020 15:43 Mayte Ramirez MD in [place] 11/13/2020 15:43
--- NOTE | 2020-11-13 13:28 | PC.NURSE ---
supervisor education called to assist with taking pt to CT due to Nitro drip
--- NOTE | 2020-11-13 13:30 | PC.NURSE ---
pt to CT with OB RN going with pt to monitor nitro drip.
--- NOTE | 2020-11-13 13:30 | PC.NURSE ---
pt going to CT
[2020-11-13 13:40] LABS: Troponin I 0.21 ng/ml (0.00-0.034)
--- NOTE | 2020-11-13 14:02 | PC.NURSE ---
pt return from CT
--- NOTE | 2020-11-13 14:14 | PC.NURSE ---
ER MD states to wait until result of pt CTA to send pt to second floor for admission
--- NOTE | 2020-11-13 14:36 | PC.NURSE ---
increased nitro drip to 20 mcg/min at this time, will continue to monitor
--- NOTE | 2020-11-13 14:53 | PC.NURSE ---
report called to sharee chamberlain at this time
--- NOTE | 2020-11-13 15:05 | PC.NURSE ---
kaushik brought patient to floor
--- NOTE | 2020-11-13 15:30 | PC.NURSE ---
Pt's BP 185/92, HR in 50's. Irene Hammer contacted to address 1500 Lopressor dose, states to hold this dose and instead give 5 mg Norvas PO x 1. Pt was treated w/ IV dilaudid for his neck pain , denies chest pain, but does have a headache he relates to the nitro gtt. Upon arrival to floor Nitro gtt @ 20 mcg/min.
--- NOTE | 2020-11-13 16:20 | PC.NURSE ---
NITRO GTT TITRATED TO 10 MCG/MIN
--- NOTE | 2020-11-13 17:36 | PC.NURSE ---
NITRO GTT INCREASED TO 20 MCG/MIN @ THIS TIME
--- NOTE | 2020-11-13 19:50 | PC.NURSE ---
Nitro gtt titrated to 30 mcg/min
[2020-11-14] VITALS (13 sets, daily range): BP systolic 123–174; BP diastolic 58–90; PULSE 56–73; RESP 15–17; TEMP 36.7–37.3; O2SAT 91–98; BMI 28.0
--- NOTE | 2020-11-14 01:33 | PC.NURSE ---
Nitro gtt titrated to 20 mcg/min
--- NOTE | 2020-11-14 03:58 | PC.NURSE ---
Pt has rested at intervals this shift. Has c/o a headache tonight and nausea. Medicated per nov. Jacqueline Hammer consulted earlier in shift about medication, metoprolol and HR. Go ahead and administer medication. Pt HR has been NSR to sinus humberto. Pt remains on Nitro gtt. Currently infusing @ 20 mcg/min. BP is currently 141/72. No other concerns at this time. Will continue to monitor.
--- NOTE | 2020-11-14 04:51 | PC.NURSE ---
Nitro gtt titrated to 10 mcg/min.
--- NOTE | 2020-11-14 05:57 | PC.NURSE ---
Nitro gtt placed on standby. Pt educated and to report any s/s. VSS at this time. Will continue to monitor.
[2020-11-14 06:57] LABS: Chloride 108 mmol/L (98-107); Potassium 3.6 mmoL/L (3.5-5.1); Sodium 141 mmol/L (136-145)
[2020-11-14 07:00] LABS: Anion Gap 5.6 mEq/L (5-15); Blood Urea Nitrogen 33 mg/dl (9-20); Carbon Dioxide 31 mmol/L (22.0-30.0); Creatinine Clearance Estimated 64 mL/min (50-200); Estimated Glomerular Filt Rate 55 ml/min (>60); GFR (African American) 67 ML/MIN (>60); Glucose 122 mg/dl (74-100)
--- NOTE | 2020-11-14 08:26 | HMH.ACPN2 ---
<Dilma Carrero - Last Filed: 11/14/20 08:26> Internal Medicine - PN: Subj *Date: 11/14/20 *Time: 08:26 Interval history: Patient is feeling better today. His blood pressure is down to normal and his heart rate is normal as well. His headache has improved. His neck pain has also improved. He was able to eat this morning as his nausea and vomiting are better. He also rested well last night. Exam Vital signs and Labs for Last 24 Hours: Temp Pulse Resp BP Pulse Ox 98.1 F 63 16 151/82 H 94 L 11/14/20 04:00 11/14/20 07:00 11/14/20 07:00 11/14/20 07:00 11/14/20 07:00 Laboratory Results - last 24 hr 11/13/20 09:10: WBC 7.5, RBC 4.39 L, Hgb 12.5 L, Hct 38.5 L, MCV 87.7, MCH 28.4, MCHC 32.4, RDW 14.5, Plt Count 195, MPV 7.7, Neut % (Auto) 78.9, Lymph % (Auto) 12.7, [place] % (Auto) 5.7, Eos % (Auto) 2.2, Baso % (Auto) 0.4, Neut # (Auto) 5.9, Lymph # (Auto) 1.0, [place] # (Auto) 0.4, Eos # (Auto) 0.2, Baso # (Auto) 0.0 11/13/20 09:10: Sodium 140, Potassium 2.7 L*, Chloride 108 H, Carbon Dioxide 31 H, Anion Gap 3.7 L, BUN 29 H, Creatinine 1.00, Estimated Creat Clear 84, Estimated GFR 75, Est GFR ( Amer) 90, Glucose 109 H, Calcium 8.6, Troponin I 0.20 H 11/13/20 09:10: TSH 3.92 11/13/20 13:08: Troponin I 0.21 H 11/13/20 15:54: Troponin I 0.20 H 11/14/20 06:15: Sodium 141, Potassium 3.6 D, Chloride 108 H, Carbon Dioxide 31 H, Anion Gap 5.6, BUN 33 H, Creatinine 1.30 H D, Estimated Creat Clear 64, Estimated GFR 55 L, Est GFR ( Amer) 67 D, Glucose 122 H, Calcium 8.0 L I & O for Last 24 hours: Intake & Output 11/11/20 11/12/20 11/13/20 11/14/20 11:59 11:59 11:59 11:59 Intake Total 147 / 147 Output Total 700 / 700 Balance -553 / -553 Weight 180 lb 178 lb 8 oz Microbiology Reports for the Last 24 Hours: Microbiology 11/13/20 10:40 Nasopharyngeal Coronavirus COVID-19 PCR - Final - Constitutional no acute distress - *Routine Respiratory Exam Present: CTA bilaterally - *Routine Cardiovascular Exam Present: RRR - *Routine Abdominal Exam Present: soft, normoactive bowel sounds. Absent: tenderness - *Routine Extremities Exam Absent: cyanosis, clubbing, edema - *Routine Skin Exam Present: warm. Absent: rash - *Routine Neurological Exam Present: alert, oriented X3 Assessment and Plan (1) Uncontrolled hypertension Status: Acute Category: Medical Code(s): I10 - Essential (primary) hypertension (2) Chest pain Status: Acute Qualifiers: Chest pain type: unspecified Qualified Code(s): R07.9 - Chest pain, unspecified Category: Medical Code(s): R07.9 - Chest pain, unspecified (3) Elevated troponin Status: Acute Category: Medical Code(s): R77.8 - Other specified abnormalities of plasma proteins (4) Cervical disc disease Status: Chronic Category: Medical Code(s): M50.90 - Cervical disc disorder, unspecified, unspecified cervical region (5) Hyperlipidemia Status: Chronic Category: Medical Code(s): E78.5 - Hyperlipidemia, unspecified (6) Hypothyroidism Status: Chronic Category: Medical Code(s): E03.9 - Hypothyroidism, unspecified (7) Hypertension Status: Chronic Qualifiers: Hypertension type: essential hypertension Qualified Code(s): I10 - Essential (primary) hypertension Category: Medical Code(s): I10 - Essential (primary) hypertension (8) Cervical radiculopathy Status: Acute Category: Medical Code(s): M54.12 - Radiculopathy, cervical region (9) Hypokalemia Status: Acute Category: Medical Code(s): E87.6 - Hypokalemia - Assessment and plan all Dx Assessment and Plan for all problems:: Blood pressure has improved and patient is off the nitro drip. Dr. Huddleston did order some steroids and muscle relaxants last night and his neck pain is better today. Will discuss further care with Dr. Huddleston. <[place] Hudd[place] - Last Filed: 11/14/20 11:06> Internal Medicine - PN: Subj *
--- NOTE | 2020-11-14 17:54 | PC.NURSE ---
PT IS RESTING IN BED. NO COMPLAINTS OF DISCOMFORT. ALERT AND ORIENTED X4. PT HAS BEEN UP AMBULATING IN THE ROOM. PT STATES THE GABAPENTIN HAS REALLY HELPED WITH THE PAIN HE HAS BEEN HAVING IN HIS NECK. PT ONLY REQUIRED ONE DOSE OF TYLENOL THIS SHIFT FOR A MILD HEADACHE. LUNG SOUNDS CLEAR. ABDOMEN SOFT/ NON TENDER. PT'S BP AT THIS TIME IS 162/89. O2 SATURATION 92-95% ON ROOM AIR. NITRO DRIP WAS DC'D PT WAS TRANSFERRED OUT OF STEP DOWN AT 0900 THIS MORNING. WILL CONTINUE TO MONITOR.
[2020-11-15] VITALS (10 sets, daily range): BP systolic 161–205; BP diastolic 82–108; PULSE 60–71; RESP 16–18; TEMP 36.4–37.1; O2SAT 93–96; BMI 28.0
--- NOTE | 2020-11-15 05:22 | PC.NURSE ---
Pt has rested better tonight. He stated at beginning of shift that he felt better. He states that since he has been on gabapentin. Pain has improved. BP is trending up this AM. Pt also c/o headache. Pt medicated for headache. Will reassess BP after pt has sat down to rest. He is currently ambulating in room at this time. Other VSS. Pt has been NSR on telemetry. Has ambulated in room without difficulty. No other concerns. Will continue to monitor.
--- NOTE | 2020-11-15 08:14 | HMH.ACPN2 ---
Internal Medicine - PN: Subj *Date: 11/15/20 *Time: 08:14 Interval history: He had a good day yesterday with improvement in his neck pain and headaches. His blood pressure did well throughout the day and he was tolerating activity in the room. This morning he states his neck is hurting a little more and he has a dull headache. His blood pressure has been high since early this morning. No chest pain. Exam Vital signs and Labs for Last 24 Hours: Temp Pulse Resp BP Pulse Ox 98.7 F 62 17 166/82 H 95 11/15/20 04:00 11/15/20 04:00 11/15/20 04:00 11/15/20 06:45 11/15/20 04:00 I & O for Last 24 hours: Intake & Output 11/12/20 11/13/20 11/14/20 11/15/20 11:59 11:59 11:59 11:59 Intake Total 867 / 867 1560 / 1560 Output Total 700 / 700 Balance 167 / 167 1560 / 1560 Weight 180 lb 178 lb 8 oz 179 lb Narrative: Alert and oriented. Hard of hearing. Neck with no deformity. Range of motion is decreased secondary to pain. Lungs are clear. Heart is regular. Extremities no edema. Assessment and Plan (1) Uncontrolled hypertension Status: Acute Category: Medical Code(s): I10 - Essential (primary) hypertension (2) Chest pain Status: Acute Qualifiers: Chest pain type: unspecified Qualified Code(s): R07.9 - Chest pain, unspecified Category: Medical Code(s): R07.9 - Chest pain, unspecified (3) Elevated troponin Status: Acute Category: Medical Code(s): R77.8 - Other specified abnormalities of plasma proteins (4) Cervical disc disease Status: Chronic Category: Medical Code(s): M50.90 - Cervical disc disorder, unspecified, unspecified cervical region (5) Hyperlipidemia Status: Chronic Category: Medical Code(s): E78.5 - Hyperlipidemia, unspecified (6) Hypothyroidism Status: Chronic Category: Medical Code(s): E03.9 - Hypothyroidism, unspecified (7) Hypertension Status: Chronic Qualifiers: Hypertension type: essential hypertension Qualified Code(s): I10 - Essential (primary) hypertension Category: Medical Code(s): I10 - Essential (primary) hypertension (8) Cervical radiculopathy Status: Acute Category: Medical Code(s): M54.12 - Radiculopathy, cervical region (9) Hypokalemia Status: Acute Category: Medical Code(s): E87.6 - Hypokalemia - Assessment and plan all Dx Assessment and Plan for all problems:: Continue steroids and gabapentin for his cervical radiculopathy which is improved. Switch metoprolol to extended release twice a day. Add Norvasc 5 mg daily and hydralazine 25 mg 3 times daily. Activity as tolerated.
--- NOTE | 2020-11-15 16:05 | PC.NURSE ---
Addendum entered by Rosalina Riddle RN 11/15/20 18:24: NOTIFED PCP TO LET HIM KNOW PT'S MANUAL BP= RT ARM 198/90, LT ARM 205/98. PT WILL GET ANOTHER DOSE OF METOPROLOL THIS EVENING. NO OTHER ORDERS AT THIS TIME. Original Note: PT IS RESTING IN BED WITH FAMILY IN THE ROOM. BP CONTINUES TO BE ELEVATED. PCP MADE SOME MEDICATION CHANGES. PT STATED HE FELT BETTER YESTERDAY THAN HE DOES TODAY BUT HE DOES NOT WANT TO GO BACK ON THE NITRO DRIP B/C HE STATED IT MADE HIM FEEL AWFUL. PT WAS ABLE TO TOLERATE TAKING A SHOWER THIS SHIFT. PT STATES HE IS HAVING VERY MINIMAL NECK PAIN. LUNG SOUNDS CLEAR. ABDOMEN SOFT/NON TENDER WITH ACTIVE BOWEL SOUNDS. O2 SATURATION 93-96% ON ROOM AIR. WILL CONTINUE TO MONITOR.
[2020-11-16] VITALS (7 sets, daily range): BP systolic 131–190; BP diastolic 71–109; PULSE 50–70; RESP 12–24; TEMP 36.6–37.2; O2SAT 90–95; BMI 28.9
--- NOTE | 2020-11-16 03:47 | PC.NURSE ---
Pt has rested well this shift. Has had less complaints of discomfort this shift.Has c/o headache x1. BP has fluctuated. He is hypertensive this AM. notified. No new orders at this time. Medications administered per nov. Pt has voided x2. No other concerns. Will continue to monitor.
[2020-11-16 06:18] LABS: Chloride 103 mmol/L (98-107); Potassium 4.4 mmoL/L (3.5-5.1); Sodium 138 mmol/L (136-145)
[2020-11-16 06:21] LABS: Anion Gap 4.4 mEq/L (5-15); Blood Urea Nitrogen 60 mg/dl (9-20); Calcium 8.6 mg/dl (8.4-10.2); Carbon Dioxide 35 mmol/L (22.0-30.0); Creatinine Clearance Estimated 66 mL/min (50-200); Estimated Glomerular Filt Rate 55 ml/min (>60); GFR (African American) 67 ML/MIN (>60); Glucose 141 mg/dl (74-100)
--- NOTE | 2020-11-16 08:00 | CA_ITS ---
APPROVED REPORT Sheet Rocker: Gardenia Garcia RVT Indications: hypertensive urgency Risk Factors Hypertension Renal Artery Doppler Proximal (R) 121.4/ cm/sec Mid (R) 134.4/ cm/sec Distal (R) 121.9/ cm/sec Renal Aorta Ratio (R) 1.55 Segmental A. (R) 58.0/13.4 cm/sec RI: 0.76 Segmental A. Sup (R) 58.0/13.4 cm/sec Segmental A. Mid (R) 54.6/19.0 cm/sec Segmental A. Inf (R) 36.8/11.1 cm/sec Proximal (L) 96.8/ cm/sec Mid (L) 115.6/ cm/sec Distal (L) 99.9/ cm/sec Renal Aorta Ratio (L) 1.33 Segmental A. (L) 36.6/9.5 cm/sec RI: 0.74 Segmental A. Sup (L) 33.2/16.2 cm/sec Segmental A. Mid (L) 35.2/12.2 cm/sec Segmental A. Inf (L) 36.6/9.5 cm/sec Renal Measurements Kidney Size (R) 10.7x7.3 cm Cortical Thickness (R) 1.5 cm Kidney Size (L) 11.7x5.9 cm Cortical Thickness (L) 1.5 cm Findings Study suggests no evidence of stenosis of the bilateral renal arteries. There is a 1.7 X 1.6 cm cyst lower pole left kidney. Conclusion Study suggests no evidence of stenosis of the bilateral renal arteries. There is a 1.7 X 1.6 cm cyst lower pole left kidney. Electronically signed by : John Thayer MD 11/16/2020 17:24:19
--- NOTE | 2020-11-16 08:58 | HMH.ACPN2 ---
<Ivette Knowles - Last Filed: 11/16/20 08:58> Internal Medicine - PN: Subj *Date: 11/16/20 *Time: 08:58 Interval history: Patient states that his headache and neck pain are worse. He slept at intervals. He ate breakfast. He denies chest pain and shortness of breath. He is worried about his elevated blood pressure. Blood chemistries this morning show sodium of 138 and potassium of 4.4. BUN is 60 with a creatinine of 1.3. GFR is 55. Patient had a renal artery duplex this a.m. with pending results. Exam Vital signs and Labs for Last 24 Hours: Temp Pulse Resp BP Pulse Ox 98.5 F 65 18 185/109 H 94 L 11/16/20 08:00 11/16/20 08:00 11/16/20 08:00 11/16/20 08:00 11/16/20 08:00 Laboratory Results - last 24 hr 11/16/20 05:26: Sodium 138, Potassium 4.4 D, Chloride 103, Carbon Dioxide 35 H, Anion Gap 4.4 L, BUN 60 H D, Creatinine 1.30 H, Estimated Creat Clear 66, Estimated GFR 55 L, Est GFR ( Amer) 67, Glucose 141 H, Calcium 8.6 I & O for Last 24 hours: Intake & Output 11/13/20 11/14/20 11/15/20 11/16/20 11:59 11:59 11:59 11:59 Intake Total 867 / 867 2039 1320 / 1320 Output Total 700 / 700 Balance 167 / 167 2039 1320 / 1320 Weight 180 lb 178 lb 8 oz 179 lb 184 lb 6 oz - Constitutional no acute distress - *Routine Respiratory Exam Present: CTA bilaterally (Anteriorly and posteriorly) - *Routine Cardiovascular Exam Present: RRR - *Routine Abdominal Exam Present: soft, normoactive bowel sounds. Absent: tenderness - *Routine Extremities Exam Absent: edema - *Routine Neurological Exam Present: alert, oriented X3 Assessment and Plan (1) Uncontrolled hypertension Status: Acute Category: Medical Code(s): I10 - Essential (primary) hypertension (2) Chest pain Status: Acute Qualifiers: Chest pain type: unspecified Qualified Code(s): R07.9 - Chest pain, unspecified Category: Medical Code(s): R07.9 - Chest pain, unspecified (3) Elevated troponin Status: Acute Category: Medical Code(s): R77.8 - Other specified abnormalities of plasma proteins (4) Cervical disc disease Status: Chronic Category: Medical Code(s): M50.90 - Cervical disc disorder, unspecified, unspecified cervical region (5) Hyperlipidemia Status: Chronic Category: Medical Code(s): E78.5 - Hyperlipidemia, unspecified (6) Hypothyroidism Status: Chronic Category: Medical Code(s): E03.9 - Hypothyroidism, unspecified (7) Hypertension Status: Chronic Qualifiers: Hypertension type: essential hypertension Qualified Code(s): I10 - Essential (primary) hypertension Category: Medical Code(s): I10 - Essential (primary) hypertension (8) Cervical radiculopathy Status: Acute Category: Medical Code(s): M54.12 - Radiculopathy, cervical region (9) Hypokalemia Status: Acute Category: Medical Code(s): E87.6 - Hypokalemia (10) Depression Status: Acute Category: Medical Code(s): F32.9 - Major depressive disorder, single episode, unspecified - Assessment and plan all Dx Assessment and Plan for all problems:: Continue with current care. Cardiology to see as well today. We will add Cymbalta for pain and depression. <[place] - Last Filed: 11/16/20 18:48> Internal Medicine - PN: Subj *Date: 11/16/20 *Time: 18:46 Exam Vital signs and Labs for Last 24 Hours: Temp Pulse Resp BP Pulse Ox 98.6 F 61 24 174/94 H 94 L 11/16/20 16:00 11/16/20 16:00 11/16/20 16:00 11/16/20 16:00 11/16/20 16:00 Laboratory Results - last 24 hr 11/16/20 05:26: Sodium 138, Potassium 4.4 D, Chloride 103, Carbon Dioxide 35 H, Anion Gap 4.4 L, BUN 60 H D, Creatinine 1.30 H, Estimated Creat Clear 66, Estimated GFR 55 L, Est GFR ( Amer) 67, Glucose 141 H, Calcium 8.6 I & O for Last 24 hours: Intake & Output 02/2011/15/20 11/16/20 11/17/20 11:59 11:59 11:59 11:59 Intake Total 867 / 867 2039 13
--- NOTE | 2020-11-16 11:29 | HMH.PNCARD ---
Subjective Date: 11/16/20 Time: 11:20 Principal diagnosis: malignant htn Interval history: This is a 65-year-old white gentleman who was admitted to the hospital secondary to malignant hypertension. The patient was initially on a nitroglycerin drip but this has subsequently been stopped. He is now on oral blood pressure medications and his blood pressure remains high this morning. He denies any chest pain or pressure. He denies any shortness of breath or edema. He denies any fever, chills, nausea, vomiting, diarrhea, PND or orthopnea. His only complaint today is his blood pressure. He states that it has remained high and he is very concerned with how high his blood pressure has been running because he does not want to have a stroke. He states that his neck pain has resolved today and he is feeling much better. He states that he would feel even better if he can get his blood pressure under better control. Exam Vital signs and Labs for Last 24 Hours: Temp Pulse Resp BP Pulse Ox 98.5 F 65 18 185/109 H 94 L 11/16/20 08:00 11/16/20 08:00 11/16/20 08:00 11/16/20 08:00 11/16/20 08:00 Laboratory Results - last 24 hr 11/16/20 05:26: Sodium 138, Potassium 4.4 D, Chloride 103, Carbon Dioxide 35 H, Anion Gap 4.4 L, BUN 60 H D, Creatinine 1.30 H, Estimated Creat Clear 66, Estimated GFR 55 L, Est GFR ( Amer) 67, Glucose 141 H, Calcium 8.6 I & O for Last 24 hours: Intake & Output 11/13/20 11/14/20 11/15/20 11/16/20 23:59 23:59 23:59 23:59 Intake Total 2307 / 2427 1440 / 1440 480 / 480 Output Total 500 / 700 200 / 200 Balance -500 / -700 2107 / 2227 1440 / 1440 480 / 480 Weight 179 lb 6 oz 178 lb 8 oz 179 lb 184 lb 6 oz Narrative: echo shows: 1. Mildly enlarged left atrium, normal left ventricular size, mild concentric left ventricular hypertrophy, visually estimated ejection fraction 55% with no regional wall motion abnormality, grade 1 diastolic dysfunction seen without tissue Doppler evidence of raise left atrial pressure. 2. Mildly enlarged right ventricle with normal contractility. 3. Mild aortic, mild mitral and tricuspid regurgitation. 4. No significant pericardial effusion noted. - Constitutional no acute distress, average body habitus - *Routine HEENT Exam Head: Present: normocephalic, atraumatic Eye: Present: EOMI, PERRL ENT: Present: mucous membranes moist - *Routine Neck Exam Present: supple, full ROM, normal carotid upstroke. Absent: JVD, carotid bruit, lymphadenopathy - *Routine Respiratory Exam Present: CTA bilaterally - *Routine Cardiovascular Exam Present: RRR, Normal S1, Normal S2, bradycardia. Absent: murmur - *Routine Abdominal Exam Present: soft, normoactive bowel sounds. Absent: tenderness, distended - *Routine Extremities Exam Present: full ROM, pulses intact, normal capillary refill. Absent: cyanosis, clubbing, edema - *Routine Skin Exam Present: intact, warm. Absent: erythema, rash - *Routine Neurological Exam Present: alert, oriented X3, CN II-XII intact. Absent: sensory deficit, motor deficit Progress Note: A&P (1) Uncontrolled hypertension Status: Acute (2) Elevated troponin Status: Acute (3) Cervical disc disease Status: Chronic (4) Hyperlipidemia Status: Chronic (5) Hypothyroidism Status: Chronic (6) Hypertension Status: Chronic (7) Cervical radiculopathy Status: Acute (8) Depression Status: Acute Assessment and Plan for All Diagnoses:: plan: 1. Patient was mated to the hospital with malignant hypertension. He was on a nitroglycerin drip which is subsequently been stopped. The patient states that he does not want to go back on the nitroglycerin drip because it made him feel terrible. 2. Renal duplex is currently pending to rule out renal artery stenosis as the cause of his malignant hypertension. 3. The patient is on multiple blood pressure medications but none of his medications are currently ma
--- NOTE | 2020-11-16 17:10 | PC.NURSE ---
PT IS RESTING IN BED. ALERT AND ORIENTED X4. MEDICATED NEEDED FOR HEADACHE AND PAIN IN THE NECK. BP IS SLOWLY IMPROVING. NSR ON THE MONITOR. PT HAS AMBULATED IN THE COOPER THIS SHIFT. EATING AND DRINKING WELL. LUNG SOUNDS CLEAR. ABDOMEN SOFT/NON TENDER WITH ACTIVE BOWEL SOUNDS. WILL CONTINUE TO MONITOR
[2020-11-17] VITALS: BP 184/82; PULSE 50; PULSE 59; RESP 16; TEMP 36.6; O2SAT 96
--- NOTE | 2020-11-17 03:39 | PC.NURSE ---
Pt. has not c/o h/a or neck pain this shift; no c/o n/v/d or dizziness this shift. Pt. mainly c/o fatigue and expressed that he wanted as much sleep as he could get tonight.
[2020-11-17 04:00] VITALS: BP 160/90; PULSE 50; PULSE 63; RESP 17; TEMP 36.6; O2SAT 96
[2020-11-17 06:56] LABS: Chloride 105 mmol/L (98-107)
[2020-11-17 06:57] LABS: Potassium 3.9 mmoL/L (3.5-5.1); Sodium 137 mmol/L (136-145)
[2020-11-17 07:00] LABS: Anion Gap 2.9 mEq/L (5-15); Blood Urea Nitrogen 51 mg/dl (9-20); Calcium 8.3 mg/dl (8.4-10.2); Carbon Dioxide 33 mmol/L (22.0-30.0); Creatinine Clearance Estimated 78 mL/min (50-200); Estimated Glomerular Filt Rate 67 ml/min (>60); GFR (African American) 81 ML/MIN (>60); Glucose 129 mg/dl (74-100)
[2020-11-17 08:00] VITALS: BP 170/90; PULSE 60; PULSE 61; RESP 18; TEMP 36.6; O2SAT 94; O2SAT 97
--- NOTE | 2020-11-17 09:41 | HMH.ACPN2 ---
<Ivette Knowles - Last Filed: 11/17/20 09:41> Internal Medicine - PN: Subj *Date: 11/17/20 *Time: 09:41 Interval history: Patient states that he is not feeling much better. He notes his blood pressure is somewhat better but he feels it still with very high. He denies chest pain and his breathing is fine. He states his neck and his head hurt this morning. It seems that noise hurt when he first awakens. He plans to ambulate today. He is eating without problems. Blood pressure is better although it remains elevated.Laboratory data this a.m. with satisfactory electrolytes BUN is 51 and creatinine is 1.1.Renal artery duplex Completed yesterday with the following results: Conclusion Study suggests no evidence of stenosis of the bilateral renal arteries. There is a 1.7 X 1.6 cm cyst lower pole left kidney. Exam Vital signs and Labs for Last 24 Hours: Temp Pulse Resp BP Pulse Ox 97.9 F 61 18 170/90 H 97 11/17/20 08:00 11/17/20 08:00 11/17/20 08:00 11/17/20 08:00 11/17/20 08:00 Laboratory Results - last 24 hr 11/17/20 06:15: Sodium 137, Potassium 3.9, Chloride 105, Carbon Dioxide 33 H, Anion Gap 2.9 L, BUN 51 H, Creatinine 1.10, Estimated Creat Clear 78, Estimated GFR 67, Est GFR ( Amer) 81 D, Glucose 129 H, Calcium 8.3 L I & O for Last 24 hours: Intake & Output 11/14/20 11/15/20 11/16/20 11/17/20 11:59 11:59 11:59 11:59 Intake Total 867 / 867 2039 1320 / 1320 1320 / 1320 Output Total 700 / 700 Balance 167 / 167 2039 1320 / 1320 1320 / 1320 Weight 178 lb 8 oz 179 lb 184 lb 6 oz - Constitutional no acute distress Comments: Sitting up in the bed and appears comfortable - *Routine Respiratory Exam Present: crackles (Few bibasilar crackles posteriorly) - *Routine Cardiovascular Exam Present: RRR - *Routine Abdominal Exam Present: soft, normoactive bowel sounds. Absent: tenderness - *Routine Extremities Exam Absent: edema, calf tenderness - *Routine Neurological Exam Present: alert, oriented X3 - Routine Psychiatric Exam Present: depressed Assessment and Plan (1) Uncontrolled hypertension Status: Acute Category: Medical Code(s): I10 - Essential (primary) hypertension (2) Elevated troponin Status: Acute Category: Medical Code(s): R77.8 - Other specified abnormalities of plasma proteins (3) Cervical disc disease Status: Chronic Category: Medical Code(s): M50.90 - Cervical disc disorder, unspecified, unspecified cervical region (4) Hyperlipidemia Status: Chronic Category: Medical Code(s): E78.5 - Hyperlipidemia, unspecified (5) Hypothyroidism Status: Chronic Category: Medical Code(s): E03.9 - Hypothyroidism, unspecified (6) Hypertension Status: Chronic Qualifiers: Hypertension type: essential hypertension Qualified Code(s): I10 - Essential (primary) hypertension Category: Medical Code(s): I10 - Essential (primary) hypertension (7) Cervical radiculopathy Status: Acute Category: Medical Code(s): M54.12 - Radiculopathy, cervical region (8) Depression Status: Acute Category: Medical Code(s): F32.9 - Major depressive disorder, single episode, unspecified - Assessment and plan all Dx Assessment and Plan for all problems:: Cardiology did see patient yesterday and increased his blood pressure medicine. We will continue to monitor today. Patient plans to increase his ambulation. <[place] - Last Filed: 11/17/20 12:39> Internal Medicine - PN: Subj *Date: 11/17/20 *Time: 12:38 Exam Vital signs and Labs for Last 24 Hours: Temp Pulse Resp BP Pulse Ox 97.9 F 61 18 170/90 H 97 11/17/20 08:00 11/17/20 08:00 11/17/20 08:00 11/17/20 08:00 11/17/20 08:00 Laboratory Results - last 24 hr 11/17/20 06:15: Sodium 137, Potassium 3.9, Chloride 105, Carbon Dioxide 33 H, Anion Gap 2.9 L, BUN 51 H, Creatinine 1.10, Estimated Creat Clear 78, Estimated GFR 67, E
--- NOTE | 2020-11-17 10:14 | HMH.PNCARD ---
Subjective Date: 11/17/20 Time: 10:05 Principal diagnosis: malignant htn Interval history: This is a 65-year-old gentleman who was admitted to the hospital with malignant hypertension. We did adjust blood pressure medications yesterday and his blood pressure has improved although it still remains somewhat elevated this morning. He did have a headache and some neck pain this morning but he states that this is improved with pain medications and he is feeling much better now. He denies any chest pain or pressure. He denies any shortness of breath or edema. He denies any fever, chills, nausea, vomiting, diarrhea, PND or orthopnea. Renal duplex showed no evidence of renal artery stenosis. Exam Vital signs and Labs for Last 24 Hours: Temp Pulse Resp BP Pulse Ox 97.9 F 61 18 170/90 H 97 11/17/20 08:00 11/17/20 08:00 11/17/20 08:00 11/17/20 08:00 11/17/20 08:00 Laboratory Results - last 24 hr 11/17/20 06:15: Sodium 137, Potassium 3.9, Chloride 105, Carbon Dioxide 33 H, Anion Gap 2.9 L, BUN 51 H, Creatinine 1.10, Estimated Creat Clear 78, Estimated GFR 67, Est GFR ( Amer) 81 D, Glucose 129 H, Calcium 8.3 L I & O for Last 24 hours: Intake & Output 11/14/20 11/15/20 11/16/20 11/17/20 23:59 23:59 23:59 23:59 Intake Total 2307 / 2427 1440 / 1440 1560 / 1560 240 / 240 Output Total 200 / 200 Balance 2107 / 2227 1440 / 1440 1560 / 1560 240 / 240 Weight 178 lb 8 oz 179 lb 184 lb 6 oz Narrative: renal duplex shows: Study suggests no evidence of stenosis of the bilateral renal arteries. There is a 1.7 X 1.6 cm cyst lower pole left kidney. - Constitutional no acute distress, average body habitus - *Routine HEENT Exam Head: Present: normocephalic, atraumatic Eye: Present: EOMI, PERRL ENT: Present: mucous membranes moist - *Routine Neck Exam Present: supple, full ROM. Absent: JVD, carotid bruit, lymphadenopathy - *Routine Respiratory Exam Present: CTA bilaterally - *Routine Cardiovascular Exam Present: RRR, Normal S1, Normal S2. Absent: murmur - *Routine Abdominal Exam Present: soft, normoactive bowel sounds. Absent: tenderness, distended - *Routine Extremities Exam Present: full ROM, pulses intact, normal capillary refill. Absent: cyanosis, clubbing, edema - *Routine Skin Exam Present: intact, warm. Absent: erythema, rash - *Routine Neurological Exam Present: alert, oriented X3, CN II-XII intact. Absent: sensory deficit, motor deficit Progress Note: A&P (1) Uncontrolled hypertension Status: Acute (2) Elevated troponin Status: Acute (3) Cervical disc disease Status: Chronic (4) Hyperlipidemia Status: Chronic (5) Hypothyroidism Status: Chronic (6) Hypertension Status: Chronic (7) Cervical radiculopathy Status: Acute (8) Depression Status: Acute Assessment and Plan for All Diagnoses:: plan: 1. Patient was mated to the hospital for malignant hypertension. His meds were adjusted yesterday and his blood pressure is under better control today but still a little bit elevated. 2. We will increase his Norvasc to 10 mg p.o. twice daily for better blood pressure control. 3. LDL goal is less than 100. 4. Renal artery duplex showed no evidence of renal artery stenosis. 5. 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 Dr. Lim states that we will continue to follow this at this time. 6. He did have an elevated troponin on admission which is most likely from demand ischemia. No plans for invasive cardiac testing at this time. He denies any chest pain or chest pressure. 7. Further recommendations were made pending the patient's response to treatment. Thank you for the opportunity to help participate in the care of this patient.
[2020-11-17 12:00] VITALS: BP 165/72; PULSE 60; PULSE 63; RESP 19; TEMP 36.7; O2SAT 96
[2020-11-17 16:00] VITALS: BP 180/90; PULSE 60; PULSE 63; RESP 20; TEMP 37; O2SAT 94
[2020-11-17 20:00] VITALS: BP 151/92; PULSE 60; PULSE 64; TEMP 36.6; O2SAT 97
[2020-11-17 20:29] LABS: Microscopic, Urine URINE MICROSCOPIC (MICROSCOPIC)
[2020-11-17 21:16] LABS: Appearance,Urine CLEAR (Clear); Bilirubin,Urine Negative (Negative); Blood, Urine 2+ (Negative); Color,Urine YELLOW (Yellow); Glucose,Urine (UA) 1+ (Negative); Ketones,Urine Negative (Negative); Leukocyte Esterase,Urine Negative (Negative); Nitrate,Urine Negative (Negative); Protein,Urine 3+ (Negative); Urobilinogen,Urine 0.2 EU/dl (0.2)
[2020-11-17 21:44] LABS: RBC,Urine 20-50 #/hpf (0-3)
[2020-11-17 21:45] LABS: Bacteria,Urine 1+ /lpf
[2020-11-18] VITALS: BP 156/90; PULSE 60; PULSE 62; RESP 17; TEMP 36.7; O2SAT 94
[2020-11-18 04:00] VITALS: BP 151/81; PULSE 60; PULSE 64; RESP 17; TEMP 36.7; O2SAT 94
--- NOTE | 2020-11-18 05:37 | PC.NURSE ---
No acute changes this shift. VSS. Pt continues on RA. UA sent to lab this shift. Will continue to monitor.
[2020-11-18 08:00] VITALS: BP 156/80; PULSE 61; PULSE 70; RESP 18; TEMP 36.5; O2SAT 96
--- NOTE | 2020-11-18 08:25 | HMH.ACPN2 ---
<Dilma Carrero - Last Filed: 11/18/20 08:25> Internal Medicine - PN: Subj *Date: 11/18/20 *Time: 08:25 Interval history: Patient states he still has a headache and neck pain this morning. His blood pressure has improved and was normal when he checked it this morning. He denies any other pain and states he slept better last night and ate a good breakfast this morning. Exam Vital signs and Labs for Last 24 Hours: Temp Pulse Resp BP Pulse Ox 98.0 F 64 17 151/81 H 94 L 11/18/20 04:00 11/18/20 04:00 11/18/20 04:00 11/18/20 04:00 11/18/20 04:00 Laboratory Results - last 24 hr 11/17/20 20:16: Urine Color Yellow, Urine Appearance Clear, Urine pH 7.0, Ur Specific [place] 1.020, Urine Protein 3+, Urine Glucose (UA) 1+, Urine Ketones Negative, Urine Blood 2+, Urine Nitrate Negative, Urine Bilirubin Negative, Urine Urobilinogen 0.2, Ur Leukocyte Esterase Negative, Urine RBC 20-50, Urine WBC 3-5, Ur Squamous Epith Cells 3-5, Urine Bacteria 1+ I & O for Last 24 hours: Intake & Output 11/15/20 11/16/20 11/17/20 11/18/20 11:59 11:59 11:59 11:59 Intake Total 2039 / 2039 1320 / 1320 1320 / 1320 240 / 240 Balance 2039 / 2039 1320 / 1320 1320 / 1320 240 / 240 Weight 179 lb 184 lb 6 oz - Constitutional no acute distress - *Routine Respiratory Exam Present: CTA bilaterally - *Routine Cardiovascular Exam Present: RRR - *Routine Abdominal Exam Present: soft, normoactive bowel sounds. Absent: tenderness - *Routine Extremities Exam Absent: cyanosis, clubbing, edema - *Routine Skin Exam Present: warm. Absent: rash - *Routine Neurological Exam Present: alert, oriented X3 Assessment and Plan (1) Uncontrolled hypertension Status: Acute Category: Medical Code(s): I10 - Essential (primary) hypertension (2) Elevated troponin Status: Acute Category: Medical Code(s): R77.8 - Other specified abnormalities of plasma proteins (3) Cervical disc disease Status: Chronic Category: Medical Code(s): M50.90 - Cervical disc disorder, unspecified, unspecified cervical region (4) Hyperlipidemia Status: Chronic Category: Medical Code(s): E78.5 - Hyperlipidemia, unspecified (5) Hypothyroidism Status: Chronic Category: Medical Code(s): E03.9 - Hypothyroidism, unspecified (6) Hypertension Status: Chronic Qualifiers: Hypertension type: essential hypertension Qualified Code(s): I10 - Essential (primary) hypertension Category: Medical Code(s): I10 - Essential (primary) hypertension (7) Cervical radiculopathy Status: Acute Category: Medical Code(s): M54.12 - Radiculopathy, cervical region (8) Depression Status: Acute Category: Medical Code(s): F32.9 - Major depressive disorder, single episode, unspecified - Assessment and plan all Dx Assessment and Plan for all problems:: Patient's blood pressure has stabilized. He has ongoing neck pain with a headache. He is stable for discharge home today with follow-up in the office. <[place] - Last Filed: 11/18/20 14:54> Internal Medicine - PN: Subj *Date: 11/18/20 *Time: 14:49 Exam Vital signs and Labs for Last 24 Hours: Temp Pulse Resp BP Pulse Ox 97.7 F 61 18 156/80 H 96 11/18/20 08:00 11/18/20 08:00 11/18/20 08:00 11/18/20 08:00 11/18/20 08:00 Laboratory Results - last 24 hr 11/17/20 20:16: Urine Color Yellow, Urine Appearance Clear, Urine pH 7.0, Ur Specific [place] 1.020, Urine Protein 3+, Urine Glucose (UA) 1+, Urine Ketones Negative, Urine Blood 2+, Urine Nitrate Negative, Urine Bilirubin Negative, Urine Urobilinogen 0.2, Ur Leukocyte Esterase Negative, Urine RBC 20-50, Urine WBC 3-5, Ur Squamous Epith Cells 3-5, Urine Bacteria 1+ I & O for Last 24 hours: Intake & Output 11/16/20 11/17/20 11/18/20 11/19/20 11:59 11:59 11:59 11:59 Intake Total 1320 / 1320 1320 / 1320 980 / 980 Balance 1320 / 1320 1320 / 1320 980 / 980 Weight 184 lb 6 oz
--- NOTE | 2020-11-18 10:02 | HMH.PNCARD ---
Subjective Date: 11/18/20 Time: 09:50 Principal diagnosis: malignant htn Interval history: This is a 65-year-old gentleman who was admitted to the hospital with malignant hypertension. His blood pressure medications have been adjusted and his blood pressure is under better control today. His blood pressure is around 150 systolic and this is acceptable and once he reaches steady state with his medications his blood pressure will most likely improve. This morning he denies any chest pain or pressure. He denies any shortness of breath or edema. He denies any fever, chills, nausea, vomiting, diarrhea, PND orthopnea. He states he still has a mild headache but this is better. Exam Vital signs and Labs for Last 24 Hours: Temp Pulse Resp BP Pulse Ox 97.7 F 61 18 156/80 H 96 11/18/20 08:00 11/18/20 08:00 11/18/20 08:00 11/18/20 08:00 11/18/20 08:00 Laboratory Results - last 24 hr 11/17/20 20:16: Urine Color Yellow, Urine Appearance Clear, Urine pH 7.0, Ur Specific [place] 1.020, Urine Protein 3+, Urine Glucose (UA) 1+, Urine Ketones Negative, Urine Blood 2+, Urine Nitrate Negative, Urine Bilirubin Negative, Urine Urobilinogen 0.2, Ur Leukocyte Esterase Negative, Urine RBC 20-50, Urine WBC 3-5, Ur Squamous Epith Cells 3-5, Urine Bacteria 1+ I & O for Last 24 hours: Intake & Output 11/15/20 11/16/20 11/17/20 11/18/20 23:59 23:59 23:59 23:59 Intake Total 1440 / 1440 1560 / 1560 480 / 480 740 / 740 Balance 1440 / 1440 1560 / 1560 480 / 480 740 / 740 Weight 179 lb 184 lb 6 oz - Constitutional no acute distress, average body habitus - *Routine HEENT Exam Head: Present: normocephalic, atraumatic Eye: Present: EOMI, PERRL ENT: Present: mucous membranes moist - *Routine Neck Exam Present: supple, full ROM, normal carotid upstroke. Absent: JVD, carotid bruit, lymphadenopathy - *Routine Respiratory Exam Present: CTA bilaterally - *Routine Cardiovascular Exam Present: RRR, Normal S1, Normal S2. Absent: murmur - *Routine Abdominal Exam Present: soft, normoactive bowel sounds. Absent: tenderness, distended - *Routine Extremities Exam Present: full ROM, pulses intact, normal capillary refill. Absent: cyanosis, clubbing, edema - *Routine Skin Exam Present: intact, warm. Absent: erythema, rash - *Routine Neurological Exam Present: alert, oriented X3, CN II-XII intact. Absent: sensory deficit, motor deficit Progress Note: A&P (1) Uncontrolled hypertension Status: Acute (2) Elevated troponin Status: Acute (3) Cervical disc disease Status: Chronic (4) Hyperlipidemia Status: Chronic (5) Hypothyroidism Status: Chronic (6) Hypertension Status: Chronic (7) Cervical radiculopathy Status: Acute (8) Depression Status: Acute Assessment and Plan for All Diagnoses:: plan: 1. The patient was admitted to the hospital for malignant hypertension. His medications have been adjusted and his blood pressure is under much better control. It is still slightly elevated but he is 150 systolic which is acceptable because as the patient reaches steady state his blood pressure will likely continue to improve. No further changes to blood pressure medications at this time. 2. His LDL goal is less than 100. 3. He does have a right internal carotid artery aneurysm measuring 2.[address] Lim states we can follow this on an outpatient basis. 4. He did have an elevated troponin on admission which is most likely demand ischemia from his malignant hypertension. No plans for invasive cardiac testing at this time. He denies any chest pain or chest pressure. 5. The patient is stable for discharge home today from a cardiac standpoint. He will need to follow-up in 1 week on an outpatient basis. Thank you for the opportunity to help participate in the care of this patient.
--- NOTE | 2020-11-18 13:01 | HMH.DCSUM ---
General - General Admission date:: 11/13/20 <North Huddleston - 12/25/20 13:15> 11/13/20 <Dilma Carrero - 11/18/20 13:14> Discharge date: 11/18/20 <Dilma Carrero - 11/18/20 13:14> HPI HPI: 65-year-old white male seen in the emergency department for chest discomfort and elevated blood pressure. Patient relates neck surgery in 2016 with a recent injury at work earlier this month reaggravating the symptoms. He was seen in the ER 2 days ago for severe head and neck pain with a negative work-up. During that time he was noted to have elevated blood pressure and was treated with p.o. clonidine with subsequent improvement in blood pressure but some orthostatic symptoms that resolved during the ER visit. Today patient states he felt his blood pressure was elevated and after being checked at work was transported via EMS to ER for further evaluation. Patient is currently on a nitroglycerin drip and will titrate up to achieve a systolic blood pressure around 170 mmHg. Patient has been taking 3 [id number] ibuprofen every 5 hours since his recent neck injury earlier this month. This may be adding to his elevated blood pressure but he suspects that most of his blood pressure elevation is related to his severe neck pain. Periodic home blood pressure checks have never been this high. (above as per Davi Hammer) The patient is now on the second floor and at this time he is feeling a little bit better. His neck pain has improved. He continues with a headache. His blood pressure has also improved on the nitroglycerin drip. <Dilma Carrero - 11/18/20 13:14> Hospital Course Hospital Course: The patient's chest x-ray showed borderline cardiomegaly but nothing acute. He had an echo showing an EF of 55% with grade 1 diastolic dysfunction. 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 Cardiology saw the patient in consultation and he was started on nitroglycerin drip along with metoprolol 25 mg every 6 hours for adrenaline driven hypertensive response. Cardiology wanted to titrate as his heart rate allowed. They did not plan for any cardiac cath or stress testing as they felt his elevated troponin was due to demand ischemia from the neck pain and hypertensive response. His blood pressure did improve with the nitroglycerin drip, however he continued with neck pain and pain at the base of his skull. He also had a headache. He was started on IV pain medication and was also given a dose of steroids and some gabapentin. He had had a previous cervical disc surgery in 2017. His employer was considering this a pre-existing problem and he had a consult with a director inpatient headache program to try and resolve this issue, which had delayed work-up for his neck pain or being able to see his neurosurgeon. It was felt his pain, plus stress at home was likely contributing to his uncontrolled blood pressure. By 11/14/2020, his blood pressure was down to normal and his headache had improved. He was off the nitro drip and was able to eat without nausea. His head neck pain did improve after the dose of steroids and the initiation of gabapentin, therefore he was continued on these. His blood pressure began to elevate again and he was switched to extended release metoprolol twice a day and Norvasc 5 mg daily was added as well as hydralazine 25 mg 3 times a day. He had a renal artery duplex which showed no evidence of stenosis of the bilateral renal arteries. He did begin complaining of worsening headache and neck pain. Cymbalta was added for pain as well as depression. His blood pressure remained uncontrolled. Cardiology saw the patient and increased his Norvasc to 10 mg daily and his hydrochlorothiazide to 25 mg daily. They also increased his irbesartan to 300 mg daily. They recommended avoiding hydralazine or cloni
== END 2020-11-18 11:04 | disposition home or self-care (01) ==
LOC: ER 10:05 → 2ND 11-14 10:13
PROVIDERS: Nurse Practitioner Family; Admitting Provider Family Medicine; Emergency Provider Emergency Medicine; PCP Family Medicine; Visit Provider Family Medicine
DX: I10 Essential (primary) hypertension (principal); E03.9 Hypothyroidism, unspecified; M54.2 Cervicalgia; M54.12 Radiculopathy, cervical region; E87.6 Hypokalemia; Z79.82 Long term (current) use of aspirin; Z79.899 Other long term (current) drug therapy
CPT/HCPCS: 36415; 70498; 71045; 71275; 80048; 81001; 84443; 84484; 85025; 93005; 93306; 93976; 96365; 96375; 96376; 99284; G0378; J2405; Q9967; U0003

== ENCOUNTER 2020-11-22 13:28 | Emergency (ER) | payer BC, SELFPAY ==
[2020-11-22 13:36] VITALS: BP 144/93; PULSE 87; RESP 16; TEMP 36.7; O2SAT 100; BMI 26.6
[2020-11-22 13:40] VITALS: BP 144/93; PULSE 87; RESP 16; TEMP 36.7; O2SAT 100; BMI 26.6
[2020-11-22 13:57] LABS: Apearance,Urine Clear (Clear); Color,Urine Yellow (Yellow); Glucose,Urine (UA) Negative (Negative); Ketones,Urine Negative (Negative); PH,Urine 5.5 (5.0-8.5); Protein,Urine 3+ (Negative)
[2020-11-22 13:58] LABS: Bilirubin,Urine Negative (Negative); Blood, Urine 2+ (Negative); UTC Leukocyte Esterase,Urine 1+ (Negative); UTC Nitrate,Urine Negative (Negative); Urobilinogen,Urine 0.2 EU/dl (0.2)
[2020-11-22 14:19] VITALS: BP 144/93; PULSE 87; RESP 16; TEMP 36.7; O2SAT 100
--- NOTE | 2020-11-22 14:28 | HMH.EDUTC ---
[facility] [place] Disposition Clinical Impression: Dysuria UTI (urinary tract infection) Qualifiers: Urinary tract infection type: site unspecified Hematuria presence: with hematuria Qualified Code(s): N39.0 - Urinary tract infection, site not specified Disposition: Home, Self-Care Condition on Discharge: Good Instructions: Urinary Tract Infection, DI for Urinary Tract Infection (UTI), Phenazopyridine Additional Instructions: Drink plenty of fluids. Take tylenol for pain or fever. Take the medications as directed. Follow up with your regular doctor. GO TO THE ER FOR ANY WORSENING SYMPTOMS The pyridium will make your urine turn orange, this is an expected side effect. It will stain your clothes if it comes into contact with them. Prescriptions: Ciprofloxacin HCl [Cipro 500mg Tab] 500 mg PO BID 10 Days #20 tab Transmission Status: Received by [id number] Phenazopyridine HCl [Pyridium 200mg Tablet] 200 pow PO TID #6 tab Transmission Status: Received by [id number] Referrals: North Huddleston MD [Primary Care Provider] - Time of Disposition: 14:37 Medical Decision Making - Medical Records Medical records reviewed: No: I reviewed the patient's medical records. - Jorge Inquiry Pt receiving controlled substance: No Vital Signs: 11/22/20 13:36 11/22/20 13:40 11/22/20 14:19 Temperature 98.1 F 98.1 F 98.1 F Temperature Source Oral Oral Pulse Rate 87 Pulse Rate [Right] 87 87 Respiratory Rate 16 16 16 Blood Pressure 144/93 H Blood Pressure [Right Arm] 144/93 H 144/93 H Blood Pressure Mean [Right Arm] 110 110 Blood Pressure Source [Right Arm] Automatic Cuff Automatic Cuff Blood Pressure Position [Right Arm] Sitting Sitting 02 Sat by Pulse Oximetry 100 100 Oxygen Delivery Method Room Air Room Air - Lab Data Lab Results 11/22/20 13:40: Urine Color Yellow, Urine Appearance Clear, Urine pH 5.5, Ur Specific Valentine 1.020, Urine Protein 3+, Urine Glucose (UA) Negative, Urine Ketones Negative, Urine Blood 2+, Urine Nitrate Negative, Urine Bilirubin Negative, Urine Urobilinogen 0.2, Ur Leukocyte Esterase 1+ A Orders (Tests/Meds): ED MEDICATIONS Discontinued Medications Generic Name Dose Route Start Last Admin Trade Name Freq PRN Reason Stop Dose Admin Levofloxacin 500 mg 11/22/20 14:31 11/22/20 14:42 Levofloxacin 500mg Tab PO 11/22/20 14:32 500 mg ONCE ONE Administration Protocol Phenazopyridine HCl 200 mg 11/22/20 14:31 11/22/20 14:42 Phenazopyridine 200mg Tablet PO 11/22/20 14:32 200 mg ONCE ONE Administration ORDERS Category Date Time Status Urine Culture Routine Micro 11/22/20 13:50 Received [facility] HPI - General Stated complaint: b/p low, trouble urinating Time Seen by Provider: 11/22/20 13:50 Mode of Arrival: Ambulatory Source of Information: Patient Limitations: No Limitations Description of Symptoms (Recalled from Triage Doc. by RN): PT advises he is on alot of b/p meds and his pressure was low this morning but he feels better now. He complains of having toruble urinating, spoke with patient's osn and he advised it is probably his prostate and he hasn't been able to get his meds filled for the issues. Just wants to make sure he doesn't have a UTI. HEENT Symptoms (Recalled from RN notes): No Resp Symptoms (Recalled from RN notes): No Skin Symptoms (Recalled from RN notes): No MS Symptoms (Recalled from RN notes): No Functional Status (Recalled from RN notes): WNL - History of Present Illness Provider Complaint: He states that since yesterday he has had burning while urinating and urinary frequency. He states that his symptoms have progressed until he is having almost constant burning of his urethra. - Related Data Home Medications Medication Instructions Recorded Confirmed Aspirin [Aspirin 81mg EC Tab] 81 mg PO DAILY 11/13/20 11/13/20 Fenofibrate 160 mg PO DAILY 11/13/20 11/13/20 [facility]
== END 2020-11-22 14:49 | disposition home or self-care (01) ==
LOC: ER 13:37 → UTC 13:39
PROVIDERS: Emergency Provider Nurse Practitioner Family; PCP Family Medicine
DX: N30.00 Acute cystitis without hematuria (principal); N40.0 Benign prostatic hyperplasia without lower urinary tract symptoms; K21.9 Gastro-esophageal reflux disease without esophagitis; I10 Essential (primary) hypertension; E03.9 Hypothyroidism, unspecified; E78.5 Hyperlipidemia, unspecified; Z79.899 Other long term (current) drug therapy
CPT/HCPCS: 81003; 87086; 87186; 99202; G0463

== ENCOUNTER → 2021-01-13 07:00 | Outpatient (CLI) | payer BC, SELFPAY ==
[2021-01-13 09:35] LABS: Alanine Aminotransferase 19 U/L (12-78); Albumin Level 4.2 g/dl (3.5-5.0); Albumin/Globulin Ratio 1.9 (1.1-1.8); Alkaline Phosphatase 56 U/L (38-126); Anion Gap 7.4 mEq/L (5-15); Aspartate Amino Transferase 29 U/L (17-59); Bilirubin,Total 0.3 mg/dl (0.2-1.3); Blood Urea Nitrogen 35 mg/dl (9-20); Calcium 9.3 mg/dl (8.4-10.2); Carbon Dioxide 32 mmol/L (22.0-30.0); Chloride 105 mmol/L (98-107); Chol/HDL Ratio 2.7 (1-3.5); Cholesterol 159 mg/dl (140-200); Estimated Glomerular Filt Rate 67 ml/min (>60); GFR (African American) 81 ML/MIN (>60); Globulin 2.2 g/dL (1.3-3.2); Glucose 97 mg/dl (74-100); HDL Cholesterol 59 mg/dl (40-60); Potassium 4.4 mmoL/L (3.5-5.1); Sodium 140 mmol/L (136-145); Total Protein,Serum 6.4 g/dl (6.3-8.2); Triglycerides 107 mg/dl (30-150); VLDL Cholesterol 21 mg/dL (0-40)
[2021-01-13 09:47] LABS: Direct LDL Cholesterol 68.85 mg/dL (100-129)
[2021-01-13 10:07] LABS: Prostate Specific Ag Screen 1.4 ng/ml (0.0-4.0); Thyroid Stimulating Hormone 4.13 uIU/mL (0.465-4.68)
== END ==
PROVIDERS: Visit Provider Family Medicine
DX: I10 Essential (primary) hypertension (principal); E78.5 Hyperlipidemia, unspecified; E03.9 Hypothyroidism, unspecified; Z12.5 Encounter for screening for malignant neoplasm of prostate
CPT/HCPCS: 36415; 80053; 80061; 84443; G0103

== ENCOUNTER 2021-05-08 09:06 | Emergency (ER) | payer BC, SELFPAY ==
[2021-05-08 09:28] VITALS: BP 153/81; PULSE 83; RESP 14; TEMP 37.8; O2SAT 97; BMI 29.0
--- NOTE | 2021-05-08 09:44 | HMH.EDUTC ---
[facility] [place] Clinical Impression: Viral syndrome, Bronchitis Disposition: Home, Self-Care Condition on Discharge: Good Instructions: Preventing the Spread of Coronavirus Discharge Instructions Additional Instructions: Drink plenty of fluids. Take tylenol for pain or fever. Take the medications as directed. Follow up with your regular doctor. GO TO THE ER FOR ANY WORSENING SYMPTOMS Quarantine until you know the results of your covid-19 test. If it is positive, the health department should call you and give you further instructions about your length of Quarantine and other thing. Prescriptions: Benzonatate [Tessalon Perle 100mg Cap] 100 mg PO TIDP PRN #30 cap PRN Reason: Cough Transmission Status: Received by [facility] Azithromycin [Z-Rudy 250mg Tab*] 250 mg PO UD DOSE PK #6 tab Transmission Status: Received by [facility] Referrals: North Huddleston MD [Primary Care Provider] - Forms: Work/School Release Time of Disposition: 09:47 Medical Decision Making - Medical Records Medical records reviewed: No: I reviewed the patient's medical records. - Jorge Inquiry Pt receiving controlled substance: No Vital Signs: 05/08/21 09:28 05/08/21 09:51 Temperature 100.1 F H 100 F H Temperature Source Oral Pulse Rate 83 Pulse Rate [Right] 83 Respiratory Rate 14 16 Blood Pressure 149/82 H Blood Pressure [Right Arm] 153/81 H Blood Pressure Mean [Right Arm] 105 02 Sat by Pulse Oximetry 97 - Lab Data Lab results reviewed: Yes: I reviewed the patient's lab results. Lab Results 05/08/21 09:33: Strep Scn Rapid Clinic Negative Orders (Tests/Meds): ORDERS Category Date Time Status Covid-19 Nasal PCR ([facility]) Routine Lab 05/08/21 09:33 Received Strep Screen Confirmation Stat Micro 05/08/21 09:33 Received [facility] [place] - General Stated complaint: fever,cough,achey,sore throat Time Seen by Provider: 05/08/21 09:44 Mode of Arrival: Ambulatory Source of Information: Patient Limitations: No Limitations Description of Symptoms (Recalled from Triage Doc. by RN): pt c/o a productive cough, sore throat, chills, fever and body aches. HEENT Symptoms (Recalled from RN notes): Yes (sore throat) Resp Symptoms (Recalled from RN notes): Yes (productive cough) Skin Symptoms (Recalled from RN notes): No MS Symptoms (Recalled from RN notes): No Functional Status (Recalled from RN notes): body aches, fever, chilling - History of Present Illness Provider Complaint: He c/o chilling, chest congestion, fever up to 100.6 and body aches since last night in the middle of the night. - Related Data Home Medications Medication Instructions Recorded Confirmed Aspirin [Aspirin 81mg EC Tab] 81 mg PO DAILY 11/13/20 01/08/21 Fenofibrate 160 mg PO DAILY 11/13/20 01/08/21 Levothyroxine Sodium 88 mcg PO DAILY 11/13/20 01/08/21 [Levothyroxine 88mcg (0.088mg) Tab] Omeprazole [Omeprazole 20mg Tab] 20 mg PO DAILY 11/13/20 01/08/21 Trazodone HCl 50 mg PO HS 11/13/20 01/08/21 Previous Rx's Medication Instructions Recorded Amlodipine Besylate [Norvasc 10mg 10 mg PO BID #60 tab 11/18/20 tablet] Duloxetine HCl [Cymbalta] 60 mg PO DAILY #30 capsule. 11/18/20 Gabapentin [Neurontin 400mg 400 mg PO TID #90 cap 11/18/20 cap] Irbesartan [Avapro 300mg 300 mg PO DAILY #30 tab 11/18/20 tablet] Metoprolol Succinate [Toprol XL 50 mg PO BID #60 tab 11/18/20 50mg Tablet] Pravastatin Sodium [Pravachol 40mg 40 mg PO HS #30 tab 11/18/20 Tablet] Tamsulosin HCl [Flomax 0.4mg 0.4 mg PO HS #30 cap.er.24h 11/18/20 capsule] hydroCHLOROthiazide [HCTZ 25mg 25 mg PO DAILY #30 tab 11/18/20 tab] methylPREDNISolone [Medrol 4mg 4 mg PO DIRECTED #21 tab 11/18/20 tab] Ciprofloxacin HCl [Cipro 500mg 500 mg PO BID 10 Days #20 tab 11/22/20 Tab] Phenazopyridine HCl [Pyridium 200 pow PO TID #6 tab 11/22/20 200mg Tablet] Azithromycin [Z
[2021-05-08 09:49] LABS: UTC Strep Screen (Rapid) Negative (Negative)
[2021-05-08 09:51] VITALS: BP 149/82; PULSE 83; RESP 16; TEMP 37.7
--- NOTE | 2021-05-08 14:50 | PC.NURSE ---
called patient and updated on results of positive covid test. patient educated on precautions and if symptoms worsen to be seen at ER.
== END 2021-05-08 09:56 | disposition home or self-care (01) ==
PROVIDERS: Emergency Provider Nurse Practitioner Family; PCP Family Medicine
DX: B34.9 Viral infection, unspecified (principal); J40 Bronchitis, not specified as acute or chronic
CPT/HCPCS: 87880; 99203; G0463; U0003

== ENCOUNTER 2021-05-17 08:59 | Emergency (ER) | payer BC, SELFPAY ==
[2021-05-17 09:55] VITALS: BMI 24.3
--- NOTE | 2021-05-17 09:55 | PC.NURSE ---
Pt left before being seen by provider. Advised all he wanted was covid test and did not want to be seen.
[2021-05-17 09:57] VITALS: BP 0/0; PULSE 0; RESP 0; TEMP -17.7; TEMP 0
--- NOTE | 2021-05-18 09:39 | PC.NURSE ---
pt notified of positive covid test results at this time
== END 2021-05-17 09:57 | disposition left against medical advice (07) ==
LOC: UTC 09:00
PROVIDERS: Emergency Provider Nurse Practitioner Family; PCP Family Medicine
DX: U07.1 COVID-19 (principal)
CPT/HCPCS: U0003

== ENCOUNTER 2021-05-19 09:52 | Emergency (ER) | payer BC, SELFPAY ==
[2021-05-19 10:43] VITALS: BP 109/73; PULSE 112; RESP 22; TEMP 36.8; O2SAT 96; BMI 28.3
--- NOTE | 2021-05-19 10:47 | HMH.EDUTC ---
[facility] [place] Disposition Clinical Impression: COVID-19 virus infection, Low blood pressure reading, Dehydration Disposition: Home, Self-Care Condition on Discharge: Good Instructions: DI for Dehydration -- Adult, DI for COVID-19 (Suspected or Confirmed ) Additional Instructions: Stop taking hydrochlorothiazide and furosemide until further instructed by your primary care provider. Drink plenty of fluids. Call your primary care provider in 2 days for a telehealth visit. Return to the emergency department if symptoms worsen. Referrals: North Huddleston MD [Primary Care Provider] - Medical Decision Making - Jorge Inquiry Pt receiving controlled substance: No Jorge was queried for this patient: No Vital Signs: 05/19/21 10:43 05/19/21 10:58 05/19/21 15:08 Temperature 98.3 F 98.2 F 97.9 F Temperature Source Oral Oral Oral Pulse Rate 58 L Pulse Rate [Left] 112 H 67 Respiratory Rate 22 16 16 Blood Pressure 146/77 H Blood Pressure [Right Arm] 109/73 L 128/104 H Blood Pressure Mean [Right Arm] 85 112 02 Sat by Pulse Oximetry 96 96 Oxygen Delivery Method Room Air Room Air - Lab Data Lab Results 05/19/21 11:35: WBC 6.1, RBC 4.20 L, Hgb 12.6 L, Hct 38.1 L, MCV 90.6, MCH 29.9, MCHC 33.0, RDW 13.6, Plt Count 446 H, MPV 8.2, Neut % (Auto) 74.5, Lymph % (Auto) 13.9, [place] % (Auto) 7.6, Eos % (Auto) 3.7, Baso % (Auto) 0.2, Neut # (Auto) 4.5, Lymph # (Auto) 0.8, [place] # (Auto) 0.5, Eos # (Auto) 0.2, Baso # (Auto) 0.0 05/19/21 11:35: Sodium 140, Potassium 4.4, Chloride 103, Carbon Dioxide 28, Anion Gap 13.4, BUN 31 H, Creatinine 1.50 H, Estimated Creat Clear 56, Estimated GFR 47 L, Est GFR ( Amer) 57 L, Glucose 89, Calcium 8.9, Total Bilirubin 0.8, AST 27, ALT 17, Alkaline Phosphatase 173 H, Troponin I < 0.01, Total Protein 7.1, Albumin 3.8, Globulin 3.3 H, Albumin/Globulin Ratio 1.2 Result diagrams: 05/19/21 11:35 05/19/21 11:35 Orders (Tests/Meds): ED MEDICATIONS Discontinued Medications Generic Name Dose Route Start Last Admin Trade Name Heaven PRN Reason Stop Dose Admin Iopamidol 70 ml 05/19/21 12:21 05/19/21 12:23 Iopamidol-370 (76%);100ml Bottle IV 05/19/21 12:22 70 ml ONCE ONE Administration Sodium Chloride 1,000 ml 05/19/21 11:13 05/19/21 11:25 Sodium Chloride 0.9% 1000ml Bag IV 05/19/21 11:14 1,000 ml BOLUS ONE Administration Sodium Chloride 50 ml 05/19/21 12:21 05/19/21 12:23 0.9 % Sodium Chloride 50 Ml Vial IV 05/19/21 12:22 40 ml ONCE ONE Administration Sodium Chloride 1,000 ml 05/19/21 13:34 05/19/21 13:58 Sodium Chloride 0.9% 1000ml Bag IV 05/19/21 13:35 1,000 ml BOLUS ONE Administration Medical Decision Narrative: Patient reports that he has been having episodes of his blood pressure dropping and dizziness with near syncope State that earlier today he had sharp pain on the left side of his chest but not having pain at this time, blood pressure dropped to 93/57 and he felt weak and dizzy like he was going to pass out so he came in Due to patient complaints discussed with patient and recommended transfer to the ED for further work up and evaluation and patient agreed, Called ED spoke with Yaquelin COOLEY and patient was moved to room 4 without complications [facility] [place] HPI - General Stated complaint: dizzy, weak Time Seen by Provider: 05/19/21 10:47 Mode of Arrival: Ambulatory Source of Information: Patient Limitations: No Limitations Description of Symptoms (Recalled from Triage Doc. by RN): pt reports dizziness and weakness. pt states he has been monitoring his bp at home and it keeps dipping down. earlier today he started having sharp chest pain and got dizzy and felt like he was going to pass out. his bp at that time was 93/57. pt is covid positive. HEENT Symptoms (Recalled from RN notes): No Resp Symptoms (Recalled from RN notes): No Skin Symptoms (Recalled from RN notes): No MS Symptoms (Recalled from RN notes): No Functional Status
[2021-05-19 10:58] VITALS: BP 128/104; PULSE 67; RESP 16; TEMP 36.8; O2SAT 96; BMI 29.0
--- NOTE | 2021-05-19 11:04 | HMH.EDGENADL ---
ED Disposition Clinical Impression: COVID-19 virus infection, Low blood pressure reading, Dehydration Disposition: Home, Self-Care Condition on Discharge: Fair Instructions: DI for COVID-19 (Suspected or Confirmed ), DI for Dehydration -- Adult Additional Instructions: Stop taking hydrochlorothiazide and furosemide until further instructed by your primary care provider. Drink plenty of fluids. Call your primary care provider in 2 days for a telehealth visit. Return to the emergency department if symptoms worsen. Referrals: North Huddleston MD [Primary Care Provider] - - Critical Care Critical Care Time: No Attestation: On 05/19/21, the high probability of a clinically significant, sudden or life threatening deterioration of the following system(s) required my full and direct attention, intervention and personal management. The time I documented below is in addition to time spent performing reported procedures but includes the following listed in this critical care notation. Medical Decision Making - Jorge Inquiry Pt receiving controlled substance: No Vital Signs: 05/19/21 10:43 05/19/21 10:58 Temperature 98.3 F 98.2 F Temperature Source Oral Oral Pulse Rate [Left] 112 H 67 Respiratory Rate 22 16 Blood Pressure [Right Arm] 109/73 L 128/104 H Blood Pressure Mean [Right Arm] 85 112 02 Sat by Pulse Oximetry 96 96 Oxygen Delivery Method Room Air - Lab Data Lab Results 05/19/21 11:35: WBC 6.1, RBC 4.20 L, Hgb 12.6 L, Hct 38.1 L, MCV 90.6, MCH 29.9, MCHC 33.0, RDW 13.6, Plt Count 446 H, MPV 8.2, Neut % (Auto) 74.5, Lymph % (Auto) 13.9, [place] % (Auto) 7.6, Eos % (Auto) 3.7, Baso % (Auto) 0.2, Neut # (Auto) 4.5, Lymph # (Auto) 0.8, [place] # (Auto) 0.5, Eos # (Auto) 0.2, Baso # (Auto) 0.0 05/19/21 11:35: Sodium 140, Potassium 4.4, Chloride 103, Carbon Dioxide 28, Anion Gap 13.4, BUN 31 H, Creatinine 1.50 H, Estimated Creat Clear 56, Estimated GFR 47 L, Est GFR ( Amer) 57 L, Glucose 89, Calcium 8.9, Total Bilirubin 0.8, AST 27, ALT 17, Alkaline Phosphatase 173 H, Troponin I < 0.01, Total Protein 7.1, Albumin 3.8, Globulin 3.3 H, Albumin/Globulin Ratio 1.2 Result diagrams: 05/19/21 11:35 05/19/21 11:35 Orders (Tests/Meds): ED MEDICATIONS Discontinued Medications Generic Name Dose Route Start Last Admin Trade Name Freq PRN Reason Stop Dose Admin Iopamidol 70 ml 05/19/21 12:21 05/19/21 12:23 Iopamidol-370 (76%);100ml Bottle IV 05/19/21 12:22 70 ml ONCE ONE Administration Sodium Chloride 1,000 ml 05/19/21 11:13 05/19/21 11:25 Sodium Chloride 0.9% 1000ml Bag IV 05/19/21 11:14 1,000 ml BOLUS ONE Administration Sodium Chloride 50 ml 05/19/21 12:21 05/19/21 12:23 0.9 % Sodium Chloride 50 Ml Vial IV 05/19/21 12:22 40 ml ONCE ONE Administration Sodium Chloride 1,000 ml 05/19/21 13:34 05/19/21 13:58 Sodium Chloride 0.9% 1000ml Bag IV 05/19/21 13:35 1,000 ml BOLUS ONE Administration ORDERS Category Date Time Status Troponin I Q3H Lab 05/19/21 14:15 Ordered Troponin I Q3H Lab 05/19/21 17:15 Ordered - CT Data CT Scan: Chest (CTA) Time Received: 13:[address] Reviewed: Yes: I have viewed the radiologist's interpretation Findings Narrative: PROCEDURE: CT ANGIO CHEST PE PROTOCOL CLINCIAL INDICATION: near syncope, covid - r/o PE COMPARISON: CT CT ANGIO CHEST from 11/13/2020 TECHNIQUE: IV Contrast: 70ML Isovue 370 Axial images obtained with sagittal and coronal reformats. All CT scans at the facility use one or more dose reduction, viz: automated exposure control, ma/kV adjustment per patient size (including targeted exams where dose is matched to indication, i.e. head), or iterative reconstruction technique. FINDINGS: Prior anterior cervical disc fusion. No evidence of pulmonary embolus. No evidence of aortic aneurysm or dissection. No mediastinal or hilar mass or adenopathy there are small nodes in the s
--- NOTE | 2021-05-19 11:12 | CT_ITS ---
PROCEDURE: CT ANGIO CHEST PE PROTOCOL CLINCIAL INDICATION: near syncope, covid - r/o PE COMPARISON: CT CT ANGIO CHEST from 11/13/2020 TECHNIQUE: IV Contrast: 70ML Isovue 370 Axial images obtained with sagittal and coronal reformats. All CT scans at the facility use one or more dose reduction, viz: automated exposure control, ma/kV adjustment per patient size (including targeted exams where dose is matched to indication, i.e. head), or iterative reconstruction technique. FINDINGS: Prior anterior cervical disc fusion. No evidence of pulmonary embolus. No evidence of aortic aneurysm or dissection. No mediastinal or hilar mass or adenopathy there are small nodes in the subcarinal region which are unchanged. There are multiple small bilateral pulmonary nodular opacities as well as subpleural opacities. Cavitating areas present in the left apex medially. These areas have developed since 11/13/2020 and are not typical for Covid19 pneumonia. Metastatic disease or septic emboli are considered. The peripheral opacities are somewhat atypical as they appear to represent areas of dense consolidation and located mainly in the lower lobes. No pleural effusions are evident. IMPRESSION: Numerous bilateral pulmonary nodular opacities have developed in the interval. Most of these are peripheral in the subpleural regions with masslike areas of consolidation. This is not atypical finding for acute Covid19 pneumonia. Late subacute stage Covid19 pneumonia would be a consideration.. Metastatic disease is an additional consideration. Septic emboli is also consideration. Please correlate with clinical parameters. Follow-up is recommended. No evidence of pulmonary embolus Dictated by: John Thayer MD 05/19/2021 13:00 John Thayer MD in [place] 05/19/2021 13:02
--- NOTE | 2021-05-19 11:28 | ECG_ITS ---
APPROVED REPORT Exam: Resting ECG HR:65 bpm ECG Measurements Heart Rate 65 AXES ID 144 P 37 QRSd 86 QRS -5 QT 390 T 8 QTc 405 Conclusion Normal sinus rhythm Minimal voltage criteria for LVH, may be normal variant Borderline ECG Electronically signed by : Ayaz Mariano MD 05/20/2021 17:36:05
[2021-05-19 11:48] LABS: Basophils % 0.2 % (0.1-2.0); Eosinophils # 0.2 K/mm3 (0.0-0.4); Eosinophils % 3.7 % (0.1-12.0); Hematocrit 38.1 % (42.0-52.0); Hemoglobin 12.6 g/dL (14.1-18.0); Lymphocytes # 0.8 K/mm3 (0.7-4.5); Lymphocytes % 13.9 % (10-50); Mean Corpuscular Hemoglobin 29.9 pg (27.0-31.2); Mean Corpuscular Volume 90.6 fl (80-94); Mean Platelet Volume 8.2 fl (7.4-10.4); Monocytes # 0.5 K/mm3 (0.1-1.0); Monocytes % 7.6 % (1.7-9.3); Neutrophils # 4.5 K/mm3 (1.8-7.8); Neutrophils % 74.5 % (37.0-80.0); Platelet Count 446 K/mm3 (142-424); Red Cell Distribution Width 13.6 % (11.5-17.5); White Blood Count 6.1 K/mm3 (4.8-10.8)
[2021-05-19 11:50] LABS: Chloride 103 mmol/L (98-107); Sodium 140 mmol/L (136-145)
[2021-05-19 11:51] LABS: Potassium 4.4 mmoL/L (3.5-5.1)
[2021-05-19 11:53] LABS: Alanine Aminotransferase 17 U/L (12-78); Albumin Level 3.8 g/dl (3.5-5.0); Albumin/Globulin Ratio 1.2 (1.1-1.8); Alkaline Phosphatase 173 U/L (38-126); Anion Gap 13.4 mEq/L (5-15); Aspartate Amino Transferase 27 U/L (17-59); Bilirubin,Total 0.8 mg/dl (0.2-1.3); Blood Urea Nitrogen 31 mg/dl (9-20); Calcium 8.9 mg/dl (8.4-10.2); Carbon Dioxide 28 mmol/L (22.0-30.0); Creatinine Clearance Estimated 56 mL/min (50-200); Estimated Glomerular Filt Rate 47 ml/min (>60); GFR (African American) 57 ML/MIN (>60); Globulin 3.3 g/dL (1.3-3.2); Glucose 89 mg/dl (74-100); Total Protein,Serum 7.1 g/dl (6.3-8.2)
[2021-05-19 12:06] LABS: Troponin I < 0.01 ng/ml (0.00-0.034)
--- NOTE | 2021-05-19 13:32 | PC.NURSE ---
ZUHAIR WHELAN speaking with Dr. Kalpan who is system validation engineer for Dr. Huddleston
[2021-05-19 15:08] VITALS: BP 146/77; PULSE 58; RESP 16; TEMP 36.6; O2SAT 98
== END 2021-05-19 15:08 | disposition home or self-care (01) ==
LOC: UTC 10:30 → ER 10:49
PROVIDERS: Emergency Provider Emergency Medicine; PCP Family Medicine
DX: U07.1 COVID-19 (principal); I95.9 Hypotension, unspecified; E86.0 Dehydration; K21.9 Gastro-esophageal reflux disease without esophagitis; E78.5 Hyperlipidemia, unspecified; I10 Essential (primary) hypertension; E03.9 Hypothyroidism, unspecified; Z79.899 Other long term (current) drug therapy
CPT/HCPCS: 71275; 80053; 84484; 85025; 93005; 96365; 96367; 99283; Q9967

== ENCOUNTER → 2022-01-28 14:45 | Outpatient (CLI) | payer BC, SELFPAY | PROVIDERS: PCP Family Medicine; Visit Provider Urology | DX: Z01.812 Encounter for preprocedural laboratory examination (principal); Z11.52 Encounter for screening for COVID-19; N40.1 Benign prostatic hyperplasia with lower urinary tract symptoms | CPT/HCPCS: C9803; U0003; U0005 ==

== ENCOUNTER 2022-01-31 09:30 | Day surgery (SDC) | payer BC, SELFPAY ==
[2022-01-27 11:36] VITALS: BMI 30.7
[2022-01-31 09:53] VITALS: BP 164/104; PULSE 82; RESP 18; TEMP 36.5; O2SAT 97
[2022-01-31 10:18] VITALS: BP 151/86; PULSE 84; RESP 18; TEMP 36.7; O2SAT 94
--- NOTE | 2022-01-31 10:58 | HMH.OPNOTE ---
Date of procedure: 01/31/22 Pre-op Diagnosis:: BPH with lower urinary tract symptoms Post-op Diagnosis:: BPH with lower urinary tract symptoms Procedure performed:: Cystoscopy Surgeon:: Vargas Hickman MD Anesthesia: local Estimated blood loss (mL): 0 Clinical Note:: 66-year-old white male with lower urinary tract symptoms presents for cystoscopic evaluation. Operative findings:: Patient with moderate trilobar hyperplasia. No significant median lobe was noted. No chronic bladder outlet obstructive changes noted in the bladder. Operative note:: Patient taken to the cystoscopy suite after informed consent was obtained. On the stretcher he was prepped and draped in the standard surgical fashion and 2% lidocaine placed into the urethra and clamped for 5 minutes. After 5 minutes the clamp removed and the flexible cystoscope introduced into the urethral meatus and passed to the prostatic urethra and into the bladder. The bladder was examined in a systematic fashion. There is no cellule, diverticula or trabeculation. No stones or mucosal abnormalities noted. The ureteral orifices in their normal anatomic position with clear efflux of urine. The scope was retroflexed showing no significant median lobe. Scope then pulled back to the prostatic urethra showing by lobar hyperplasia with coapting lobes. Prostate was measured at 2-1/2 cm. Scope then removed there is no evidence of urethral strictures. We discussed the findings today and he is a good UroLift candidate and we discussed the operative procedure complications and postoperative course for UroLift. He wishes to proceed we will set this up at his earliest convenience. Condition: stable Disposition: same day Specimens:: None Complications:: None
== END 2022-01-31 10:28 | disposition home or self-care (01) ==
LOC: OUTP 09:37
PROVIDERS: PCP Family Medicine; Visit Provider Urology
PROC: (CPT 52000; principal; 2022-01-31 10:30)
DX: N40.1 Benign prostatic hyperplasia with lower urinary tract symptoms (principal); N45.1 Epididymitis; K21.9 Gastro-esophageal reflux disease without esophagitis; E78.5 Hyperlipidemia, unspecified; I10 Essential (primary) hypertension; E03.9 Hypothyroidism, unspecified; Z86.16 Personal history of COVID-19; Z88.0 Allergy status to penicillin
CPT/HCPCS: 52000

== ENCOUNTER → 2022-02-09 15:42 | Outpatient (CLI) | payer BC, SELFPAY ==
[2022-02-09 16:17] LABS: MANUAL DIFFERENTIAL MANUAL DIFFERENTIAL (MANUAL DIFF)
[2022-02-09 16:49] LABS: Basophils # 0.1 K/mm3 (0-0.2); Basophils % 1.2 % (0.1-2.0); Eosinophils # 0.3 K/mm3 (0.0-0.4); Eosinophils % 4.3 % (0.1-12.0); Hematocrit 39.5 % (42.0-52.0); Hemoglobin 13.2 g/dL (14.1-18.0); Lymphocytes # 1.5 K/mm3 (0.7-4.5); Lymphocytes % 25.4 % (10-50); Mean Corpuscular HGB Conc 33.5 g/dL (31.8-35.4); Mean Corpuscular Hemoglobin 30.7 pg (27.0-31.2); Mean Corpuscular Volume 91.7 fl (80-94); Mean Platelet Volume 8.4 fl (7.4-10.4); Monocytes # 0.4 K/mm3 (0.1-1.0); Monocytes % 7.5 % (1.7-9.3); Neutrophils # 3.6 K/mm3 (1.8-7.8); Neutrophils % 61.5 % (37.0-80.0); Platelet Count 267 K/mm3 (142-424); Red Blood Count 4.31 M/mm3 (4.60-6.20); Red Cell Distribution Width 13.6 % (11.5-17.5); White Blood Count 5.9 K/mm3 (4.8-10.8)
[2022-02-09 17:16] LABS: Anion Gap 9.5 mEq/L (5-15); Blood Urea Nitrogen 29 mg/dl (9-20); Carbon Dioxide 32 mmol/L (22.0-30.0); Chloride 102 mmol/L (98-107); Estimated Glomerular Filt Rate 47 ml/min (>60); GFR (African American) 56 ML/MIN (>60); Glucose 97 mg/dl (74-100); Potassium 4.5 mmoL/L (3.5-5.1); Sodium 139 mmol/L (136-145)
[2022-02-09 20:55] LABS: Eosinophils % 1 % (0-3); Lymphocytes % 12 % (10-50); Monocytes % 8 % (2-9); Neutrophils % 77 % (42-76); Platelet Estimate Normal; Total Cells Counted 100
== END ==
PROVIDERS: Visit Provider Urology
DX: Z01.812 Encounter for preprocedural laboratory examination (principal); U07.1 COVID-19; N40.1 Benign prostatic hyperplasia with lower urinary tract symptoms
CPT/HCPCS: 80048; 85007; 85014; 85018; 85048; 85049; C9803; U0003; U0005

== ENCOUNTER 2022-03-11 08:46 | Day surgery (SDC) | payer BC, SELFPAY ==
[2022-03-08 16:34] VITALS: BMI 30.7
[2022-03-11] VITALS (14 sets, daily range): BP systolic 124–158; BP diastolic 73–93; PULSE 61–101; RESP 12–18; TEMP 36.2–36.7; O2SAT 94–98
--- NOTE | 2022-03-11 15:21 | HMH.ANESCL ---
[facility] Anesthesia Checklist - Structural Data Admitted From: Home Planned Operative Procedure/s: urolift Consent for Planned Operative Procedure(s) Verified: Yes - Additional verifications Anesthesia Reactions: No Hx Blood Transfusions: No Blood Transfusion Reaction: No - Airway Assessment C-Spine Mobility Assessed: Yes TMJ Mobility Assessed: Yes Dentition: Good Dentition - Neurological Assessment Level of Consciousness: Awake, Alert, Appropriate - Anesthesia Plan Anesthesia Risk discussed: Yes Anesthesia Plan: Verified ASA Class: II Anesthesia Type: General [facility] History I have reviewed the patient's past medical history: Yes Medical History: Reports:: BPH, Gastroesophageal Reflux Disease(GERD), Hyperlipidemia, Hypertension Denies:: Cancer, Diabetes Mellitus Type 1, Diabetes Mellitus Type 2, Internal Pacemaker, MRSA, Seizures *Have you ever received a pneumonia vaccine?: No *Have you received a flu vaccine this season?: No Other Medical History: Reports: Hypothyroidism, Other. Denies: Blood Transfusion Reaction Anesthesia experience/problems:: none Other Surgeries: Yes: Cardiac Catheterization, Colonoscopy, Thyroidectomy, Other. No: Pacemaker Amputation: No Fractures: No - *Social History Last grade of school completed: High school graduate Smoking Status: Never smoker Alcohol Intake: never Alcohol Intake Frequency:: holidays/special occasions only Substance Use Type: denies use *Occupational Status:: retired Housing: house Household Members: spouse *Travel in the last 8 weeks: None Family Hx:: Coronary Artery Disease, Hypertension
--- NOTE | 2022-03-11 15:47 | P.PN_ITS ---
[facility] Anesthesia Record Part I Intake, IV Amount: 1,500 Estimated blood loss (mL): 0 Urine output (mL): 0 Blood Pressure: 158/90 SaO2: 94 Pulse Rate: 96 Respiratory Rate: 12 Temperature: 97.2 F Patient is:: Awake, Stable Stable to PACU at:: 15:40
--- NOTE | 2022-03-11 15:49 | P.OP_ITS ---
Date of procedure: 03/11/22 Pre-op Diagnosis:: BPH with obstruction Post-op Diagnosis:: BPH with obstruction Procedure performed:: Urolift x6 implants Surgeon:: Vargas Hickman MD AUDIO PRODUCTION MANAGER:: Lino Patton Anesthesia: LMA Estimated blood loss (mL): 5 Clinical Note:: 66-year-old white male with lower urinary tract symptoms and BPH. Patient presents for UroLift procedure. Operative findings:: Patient with by lobar hyperplasia and some mild anterior prostate enlargement. Prostatic urethra appeared much more open after UroLift implants. Operative note:: Patient taken to the operating room after informed consent was obtained. He was placed on the operating table and general anesthesia administered. Preoperative antibiotics and sequential compression devices placed. He was then placed into the dorsal lithotomy position and prepped draped in the standard surgical fashion. The UroLift cystoscope was passed into the urethral meatus and to the prostatic urethra and into the bladder. The bladder was examined in a systematic fashion and there was some mild trabeculation present but no cellules or diverticula. Ureteral orifices were in their normal anatomic position. A small median lobe was noted. Prostatic urethra showed some bilobar hyperplasia and a 2 and half centimeter length. There was some anterior prostatic tissue. The UroLift implant was placed onto the cystoscope and through the sheath. First implant was placed 2 cm distal to the bladder neck on the patient's right side and about the 9:30 position. Good result was noted. Second implant was placed at the left proximal prostatic urethra and after placement it appeared to be too close to the bladder neck. Third implant was placed to bring the scope back to the verumontanum and orienting at 90 degrees and compressing the tissue the patient's right distal prostatic urethra at the 9:30 position. Third implant was placed with good outcome. Fourth implant was placed on the opposite side the patient's left at the 2:30 position and a good result was noted. Fifth implant was placed and some tissue that was noted at the mid prostatic urethra at the 8 o'clock position. It was felt that the second implant at the left side of the bladder neck was too close to the bladder neck and rigid cystoscope with graspers was used to remove that clip. 1/6 implant was then placed 3 cm distal to the left side of the bladder neck with good result. Was a little bit of bleeding noted from the prostatic urethra and a 20 Serbian Johnson catheter was placed. Patient tolerated procedure well no complications. Condition: stable Disposition: PACU Specimens:: None Complications:: None
--- NOTE | 2022-03-11 18:20 | SUR.OPER ---
LATE ENTRY: DR. NICOLE PLACED A 20FR BRUMFIELD CATHETER INTRAOPERATIVELY. CATHETER TUBE WITH BLOODY DRAINAGE.
--- NOTE | 2022-03-14 08:13 | HMH.ANESII ---
[facility] Anesthesia Record Part II Discharge Time: 16:10 Destination: [facility] PACU nurse assessment reviewed?: Yes Patient Condition:: Good Anesthesia Complications:: None Swallowing reflex intact?: Yes Cyanosis?: No Blood Pressure: 127/74 Pulse Rate: 82 Temperature: 98.1 F Mental Status: Alert & Oriented Pain level:: 0 Nausea and/or vomitting:: None Intake, IV Amount: 1,000
[2022-03-14 08:14] VITALS: BP 127/74; PULSE 82; TEMP 36.7
== END 2022-03-11 18:00 | disposition home or self-care (01) ==
LOC: OR 08:47
PROVIDERS: PCP Family Medicine; Visit Provider Urology
PROC: (CPT 52441; principal; 2022-03-11 10:15)
DX: N40.1 Benign prostatic hyperplasia with lower urinary tract symptoms (principal); K21.9 Gastro-esophageal reflux disease without esophagitis; E78.5 Hyperlipidemia, unspecified; I10 Essential (primary) hypertension; E03.9 Hypothyroidism, unspecified
CPT/HCPCS: 52441; 52442 ×5; 96374; J2405; L8699

== ENCOUNTER 2022-03-17 07:36 | Emergency (ER) | payer BC, SELFPAY ==
[2022-03-17] VITALS (12 sets, daily range): BP systolic 86–125; BP diastolic 58–76; PULSE 62–84; RESP 14–18; TEMP 36.5–36.6; O2SAT 96–99; BMI 28.8
--- NOTE | 2022-03-17 07:49 | ECG_ITS ---
APPROVED REPORT Exam: Resting ECG HR:68 bpm ECG Measurements Heart Rate 68 AXES IL 149 P 41 QRSd 93 QRS -18 QT 387 T 24 QTc 404 Conclusion SINUS RHYTHM LOW QRS VOLTAGE IN PRECORDIAL LEADS [QRS DEFLECTION < 1.0 mV IN CHEST LEADS] MINIMAL VOLTAGE CRITERIA FOR LVH, CONSIDER NORMAL VARIANT [MEETS CRITERIA IN ONE OF: R(aVL), S(V1), R(V5), R(V5/V6)+S(V1)] BORDERLINE ECG UNCONFIRMED REPORT Electronically signed by : Ayaz Mariano MD 03/18/2022 17:33:24
--- NOTE | 2022-03-17 07:49 | XR_ITS ---
FINAL REPORT CLINICAL HISTORY: near syncope COMPARISON: November 13, 2020 FINDINGS: A single portable view of the chest was obtained. The heart size and pulmonary vascularity are within normal limits. The mediastinum is within normal limits. No acute pulmonary abnormality is identified. There are postoperative changes of the lower cervical spine. IMPRESSION: No active cardiopulmonary disease. Reviewed, Interpreted and Dictated by Juancarlos Scruggs III, MD Transcribed by Lizbeth Galvez Authenticated and [facility]
[2022-03-17 07:55] LABS: Basophils # 0.1 K/mm3 (0-0.2); Basophils % 1.6 % (0.1-2.0); Eosinophils # 0.3 K/mm3 (0.0-0.4); Eosinophils % 2.9 % (0.1-12.0); Hematocrit 42.9 % (42.0-52.0); Hemoglobin 14.3 g/dL (14.1-18.0); Lymphocytes # 1.6 K/mm3 (0.7-4.5); Lymphocytes % 17.9 % (10-50); Mean Corpuscular HGB Conc 33.3 g/dL (31.8-35.4); Mean Corpuscular Hemoglobin 30.5 pg (27.0-31.2); Mean Corpuscular Volume 91.4 fl (80-94); Mean Platelet Volume 8.1 fl (7.4-10.4); Monocytes # 0.5 K/mm3 (0.1-1.0); Monocytes % 5.6 % (1.7-9.3); Neutrophils # 6.4 K/mm3 (1.8-7.8); Neutrophils % 71.9 % (37.0-80.0); Platelet Count 318 K/mm3 (142-424); Red Blood Count 4.69 M/mm3 (4.60-6.20); Red Cell Distribution Width 13.8 % (11.5-17.5); White Blood Count 8.9 K/mm3 (4.8-10.8)
[2022-03-17 07:58] LABS: Chloride 105 mmol/L (98-107); Potassium 3.4 mmoL/L (3.5-5.1); Sodium 138 mmol/L (136-145)
[2022-03-17 08:01] LABS: Alanine Aminotransferase 28 U/L (12-78); Albumin Level 4.4 g/dl (3.5-5.0); Albumin/Globulin Ratio 1.7 (1.1-1.8); Alkaline Phosphatase 98 U/L (38-126); Anion Gap 11.4 mEq/L (5-15); Aspartate Amino Transferase 34 U/L (17-59); Bilirubin,Total 0.7 mg/dl (0.2-1.3); Blood Urea Nitrogen 46 mg/dl (9-20); Carbon Dioxide 25 mmol/L (22.0-30.0); Creatinine Clearance Estimated 46 mL/min (50-200); Estimated Glomerular Filt Rate 38 ml/min (>60); GFR (African American) 46 ML/MIN (>60); Globulin 2.6 g/dL (1.3-3.2)
[2022-03-17 08:02] LABS: Calcium 9.2 mg/dl (8.4-10.2); Glucose 154 mg/dl (74-100)
--- NOTE | 2022-03-17 08:04 | PC.NURSE ---
ED MD at
--- NOTE | 2022-03-17 08:08 | HMH.EDDIZZ ---
ED Disposition Clinical Impression: Orthostatic hypotension Disposition: Home, Self-Care Condition on Discharge: Good Instructions: DI for Orthostatic Hypotension Additional Instructions: follow up PCP 3-5 days, return here for worse Referrals: [place] Hudd[place] MD [Primary Care Provider] - - Critical Care Critical Care Time: No Attestation: On 03/17/22, the high probability of a clinically significant, sudden or life threatening deterioration of the following system(s) required my full and direct attention, intervention and personal management. The time I documented below is in addition to time spent performing reported procedures but includes the following listed in this critical care notation. Medical Decision Making - Medical Records Medical records reviewed: Yes: I reviewed the patient's medical records. - Jorge Inquiry Pt receiving controlled substance: No Vital Signs: 03/17/22 07:58 03/17/22 08:00 03/17/22 08:15 Temperature 97.7 F Temperature Source Oral Pulse Rate 67 66 Pulse Rate [Left Radial] 82 Pulse Rate [Orthostatic Lying Radial] Pulse Rate [Orthostatic Lying] Pulse Rate [Orthostatic Standing Radial] Pulse Rate [Orthostatic Standing] Respiratory Rate 16 14 Blood Pressure 92/60 L 99/58 L Blood Pressure [Orthostatic Lying Right Arm] Blood Pressure [Orthostatic Lying] Blood Pressure [Orthostatic Standing Right Arm] Blood Pressure [Orthostatic Standing] Blood Pressure [Right Arm] 89/67 L Blood Pressure Mean 65 72 Blood Pressure Mean [Right Arm] 74 Blood Pressure Position Sitting 02 Sat by Pulse Oximetry 97 96 96 Oxygen Delivery Method Room Air Room Air Room Air 03/17/22 08:30 03/17/22 08:45 03/17/22 09:00 Temperature Temperature Source Pulse Rate 66 65 64 Pulse Rate [Left Radial] Pulse Rate [Orthostatic Lying Radial] Pulse Rate [Orthostatic Lying] Pulse Rate [Orthostatic Standing Radial] Pulse Rate [Orthostatic Standing] Respiratory Rate 15 17 15 Blood Pressure 98/62 L 99/62 L 106/62 L Blood Pressure [Orthostatic Lying Right Arm] Blood Pressure [Orthostatic Lying] Blood Pressure [Orthostatic Standing Right Arm] Blood Pressure [Orthostatic Standing] Blood Pressure [Right Arm] Blood Pressure Mean 73 72 74 Blood Pressure Mean [Right Arm] Blood Pressure Position 02 Sat by Pulse Oximetry 98 99 97 Oxygen Delivery Method 03/17/22 09:30 03/17/22 09:42 03/17/22 09:45 Temperature Temperature Source Pulse Rate 67 65 Pulse Rate [Left Radial] Pulse Rate [Orthostatic Lying Radial] 64 Pulse Rate [Orthostatic Lying] Pulse Rate [Orthostatic Standing Radial] 84 Pulse Rate [Orthostatic Standing] Respiratory Rate Blood Pressure 110/65 104/63 L Blood Pressure [Orthostatic Lying Right Arm] 104/63 L Blood Pressure [Orthostatic Lying] Blood Pressure [Orthostatic Standing Right Arm] 86/58 L Blood Pressure [Orthostatic Standing] Blood Pressure [Right Arm] Blood Pressure Mean 72 77 Blood Pressure Mean [Right Arm] Blood Pressure Position 02 Sat by Pulse Oximetry 97 98 Oxygen Delivery Method 03/17/22 10:00 03/17/22 11:20 03/17/22 12:03 Temperature 97.8 F Temperature Source Pulse Rate 69 64 Pulse Rate [Left Radial] Pulse Rate [Orthostatic Lying Radial] Pulse Rate [Orthostatic Lying] 62 Pulse Rate [Orthostatic Standing Radial] Pulse Rate [Orthostatic Standing] 66 Respiratory Rate 18 Blood Pressure 119/74 116/70 Blood Pressure [Orthostatic Lying Right Arm] Blood Pressure [Orthostatic Lying] 125/76 Blood Pressure [Orthostatic Standing Right Arm] Blood Pressure [Orthostatic Standing] 119/74 Blood Pressure [Right Arm] Blood Pressure Mean 88 Blood Pressure Mean [Right Arm] Blood Pressure Position 02 Sat by Pulse Oximetry 98 Oxygen Delivery Method Room Air - Lab Data Lab Results 03/17/22 07:45: WBC 8.9,
[2022-03-17 08:14] LABS: Troponin I < 0.01 ng/ml (0.00-0.034)
--- NOTE | 2022-03-17 09:05 | PC.WOUNDNOTE ---
ER at speaking with patient regarding update on lab work, POC
--- NOTE | 2022-03-17 09:49 | PC.NURSE ---
orthostatic b/p taken. aware. 2nd liter ns ordered. pt offers no c/o at present. refused blankets
--- NOTE | 2022-03-17 10:05 | PC.NURSE ---
ZUHAIR WHELAN at checking on patient
--- NOTE | 2022-03-17 10:50 | PC.NURSE ---
SECOND TROP COLLECTED AND SENT TO LAB
[2022-03-17 11:20] LABS: Troponin I < 0.01 ng/ml (0.00-0.034)
--- NOTE | 2022-03-17 11:24 | PC.NURSE ---
pt states feeling so much better up ambulatory to bedroom steady gait no c/o at present
--- NOTE | 2022-03-17 11:51 | PC.NURSE ---
patient awaiting a ride to go home
== END 2022-03-17 12:04 | disposition home or self-care (01) ==
PROVIDERS: Emergency Medicine; Emergency Provider Emergency Medicine; PCP Family Medicine
DX: I95.1 Orthostatic hypotension (principal); Z79.899 Other long term (current) drug therapy; Z88.0 Allergy status to penicillin; N40.0 Benign prostatic hyperplasia without lower urinary tract symptoms; K21.9 Gastro-esophageal reflux disease without esophagitis; I10 Essential (primary) hypertension; E78.5 Hyperlipidemia, unspecified
CPT/HCPCS: 71045; 80053; 84484; 85025; 93005; 96365; 96366; 96375; 99284

== ENCOUNTER → 2023-05-23 16:41 | Outpatient (CLI) | payer MEDICARE, OTHER, SELFPAY ==
--- NOTE | 2023-05-23 | CA_ITS ---
FINAL REPORT TECHNIQUE: extremity venous duplex was performed with augmentation and compression. CLINICAL HISTORY: 05/17/23 fell off 4 cobb injured LLE. Knot in mid-medial calf COMPARISON: None FINDINGS: Proper flow is seen throughout the deep venous system of the left leg. There is no evidence of deep venous thrombosis. IMPRESSION: no deep venous thrombosis. Reviewed, Interpreted and Dictated by Jaylan Grewal MD Transcribed by Ruma No Authenticated and [facility]
== END ==
PROVIDERS: PCP Family Medicine; Visit Provider Family Medicine
DX: R22.42 Localized swelling, mass and lump, left lower limb; M79.662 Pain in left lower leg
CPT/HCPCS: 93971

== ENCOUNTER 2023-08-06 14:39 | Emergency (ER) | payer MEDICARE, OTHER, SELFPAY ==
[2023-08-06 14:57] VITALS: BP 191/104; PULSE 75; RESP 19; TEMP 36.8; O2SAT 97; BMI 29.0
[2023-08-06 15:49] LABS: Basophils % 0.4 % (0.1-2.0); Eosinophils # 0.2 K/mm3 (0.0-0.4); Eosinophils % 2.1 % (0.1-12.0); Hematocrit 41.9 % (42.0-52.0); Hemoglobin 14.2 g/dL (14.1-18.0); Lymphocytes # 1.5 K/mm3 (0.7-4.5); Lymphocytes % 13.4 % (10-50); Mean Corpuscular Hemoglobin 31.2 pg (27.0-31.2); Mean Corpuscular Volume 91.9 fl (80-94); Mean Platelet Volume 8.5 fl (7.4-10.4); Monocytes # 0.6 K/mm3 (0.1-1.0); Monocytes % 5.6 % (1.7-9.3); Neutrophils # 8.5 K/mm3 (1.8-7.8); Neutrophils % 78.5 % (37.0-80.0); Platelet Count 261 K/mm3 (142-424); Red Blood Count 4.56 M/mm3 (4.60-6.20); White Blood Count 10.9 K/mm3 (4.8-10.8)
[2023-08-06 15:52] LABS: Lipase 77 U/L (23-300)
[2023-08-06 15:53] LABS: Alanine Aminotransferase 34 U/L (12-78); Albumin Level 4.3 g/dl (3.5-5.0); Albumin/Globulin Ratio 1.7 (1.1-1.8); Alkaline Phosphatase 77 U/L (38-126); Aspartate Amino Transferase 46 U/L (17-59); Bilirubin,Total 0.3 mg/dl (0.2-1.3); Blood Urea Nitrogen 37 mg/dl (9-20); Calcium 8.8 mg/dl (8.4-10.2); Carbon Dioxide 24 mmol/L (22.0-30.0); Chloride 107 mmol/L (98-107); Creatinine Clearance Estimated 58 mL/min (50-200); Estimated Glomerular Filt Rate 50 ml/min (>60); GFR (African American) 61 ML/MIN (>60); Globulin 2.6 g/dL (1.3-3.2); Glucose 154 mg/dl (74-100); Sodium 139 mmol/L (136-145); Total Protein,Serum 6.9 g/dl (6.3-8.2)
--- NOTE | 2023-08-06 16:07 | CT_ITS ---
PROCEDURE INFORMATION: Exam: CT Abdomen And Pelvis With Contrast Exam date and time: 08/06/2023 5:40 PM Age: 68 years old Clinical indication: Pain; Other: Flank; Additional info: L flank pain radiating to L groin TECHNIQUE: Imaging protocol: Computed tomography of the abdomen and pelvis with contrast. Radiation optimization: All CT scans at this facility use at least one of these dose optimization techniques: automated exposure control; mA and/or kV adjustment per patient size (includes targeted exams where dose is matched to clinical indication); or iterative reconstruction. Contrast material: ISOVUE; Contrast volume: 75 ml; Contrast route: IV; REPORTING DATA: Count of CT and Cardiac NM exams in prior 12 months: This patient has received 0 known CTs and 0 known cardiac nuclear medicine studies in the 12 months prior to the current study. COMPARISON: US CA RENAL ARTERY DUPLEX 11/16/2020 6:48 AM FINDINGS: Lungs: Lung bases are clear. Liver: Mild fatty liver changes. Gallbladder and bile ducts: Cholecystectomy. No evident bile duct dilatation. Pancreas: Normal. No ductal dilation. Spleen: Normal. No splenomegaly. Adrenal glands: Normal. No mass. Kidneys and ureters: 17 mm simple appearing cyst posteroinferior left kidney and subcentimeter fluid density lesion posterior mid left kidney too small to characterize but likely a cyst. No follow-up for these lesions is advised. A 2 mm distal left ureteral stone 2 cm proximal to the UVJ with associated mild left-sided hydroureteronephrosis and moderate perinephric and periureteral stranding. Kidneys and ureters otherwise unremarkable with no obstructing stones or uropathy. Stomach and bowel: Multiple diverticula in the sigmoid colon. Colon otherwise unremarkable. Appendix: No evidence of appendicitis. Intraperitoneal space: Unremarkable. No free air. No significant fluid collection. Vasculature: Unremarkable. No abdominal aortic aneurysm. Lymph nodes: Unremarkable. No enlarged lymph nodes. Urinary bladder: Unremarkable as visualized. Reproductive: Radiation seeds are noted within the prostate. Bones/joints: Unremarkable. No acute fracture. Soft tissues: Moderate size fat containing right inguinal hernia measuring 5.5 cm. Small fat containing left inguinal hernia. IMPRESSION: 1. Obstructing 2 mm distal left ureteral stone with mild left-sided hydroureteronephrosis and moderate perinephric and periureteral stranding. 2. Additional nonemergent findings as above. COMMENTS: Consistent with the [employer]'s Incidental Findings Committee white paper (J Am Yakov Radiol 2018): Any incidental renal lesion less than 1 cm or classified as too small to characterize, or any incidental cystic renal lesion characterized as simple-appearing, is likely benign. No follow-up imaging is recommended for these lesions per consensus recommendations based on imaging criteria.
--- NOTE | 2023-08-06 16:09 | HMH.EDGENADL ---
Discharge Plan Disposition Patient Disposition: Home, Self-Care Condition: Good Prescriptions Prescriptions: New tamsulosin [Flomax] 0.4 mg capsule 0.4 mg PO DAILY 7 Days Qty: 7 0RF ketorolac 10 mg tablet 10 mg PO Q8H PRN (Reason: pain) 4 Days Qty: 12 0RF ondansetron 4 mg tablet,disintegrating 4 mg PO DAILY 3 Days Qty: 3 0RF No Action trazodone 50 MG tablet 50 mg PO HS levothyroxine 88 MCG tablet 88 mcg PO DAILY fenofibrate 160 MG tablet 160 mg PO DAILY omeprazole 20 MG tablet,delayed release (DR/EC) 20 mg PO DAILY pravastatin 40 MG tablet 40 mg PO HS gabapentin 400 MG capsule 400 mg PO TID hydrochlorothiazide 25 MG tablet 25 mg PO DAILY irbesartan 300 MG tablet 300 mg PO DAILY duloxetine 60 MG capsule,delayed release(DR/EC) 60 mg PO DAILY terazosin 1 MG capsule 1 mg PO HS Referrals Follow up/Referrals: [place] Hudd[place] MD [Primary Care Provider] - See instructions Activity Restrictions/Add. Instructions Additional Instructions/Restrictions: You have been evaluated in the ED for your complaints. You may follow-up with your PCP in the next 3 to 5 days. Please return to ED for any new or worsening symptoms. I provided you with prescriptions for Flomax to assist with stone passage. You may use strainer that was provided to you to assist with catching stone. I provided you with prescription for Toradol to further assist with pain at home. You may also take Tylenol as needed. We will also provide you with urology referral for follow-up as needed. Clinical Impressions Clinical Impression: Calculus of left ureter, Hydroureteronephrosis Instructions Patient Instructions: DI for Acute Abdominal Pain Discharge ED Provider: Jadon Askew Adult HPI General Chief complaint: Abdominal Pain Stated complaint: back to groin pain Time Seen by Provider: 08/06/23 14:51 Mode of Arrival: Ambulatory Source of Information: Patient Limitations: No Limitations Description of Symptoms (Recalled from ER Triage Doc. by RN): 68 yo M presents to ED with left sided pain. pt does have hx of kidney stones. pt reports pain feels similar. History of Present Illness HPI narrative: 68-year-old male with past medical history significant for hypertension, HLD, hypothyroidism, depression, history of nephrolithiasis, presents today for evaluation stating left flank pain rating down to left groin and testicle onset earlier today. He denies any nausea, vomiting, fevers, chills, chest pain, shortness of breath, dysuria, hematuria or any other associated symptoms. He states that his symptoms today feel similar to his kidney stones in the past. No further complaints on assessment. Related Data Home Medications Medication Instructions Recorded Confirmed fenofibrate 160 mg tablet 160 mg PO DAILY TRIGLYCERIDES 11/13/20 04/12/22 levothyroxine 88 mcg tablet 88 mcg PO DAILY thyroid 11/13/20 04/12/22 omeprazole 20 mg tablet,delayed 20 mg PO DAILY GERD 11/13/20 04/12/22 release trazodone 50 mg tablet 50 mg PO HS SLEEP 11/13/20 04/12/22 duloxetine 60 mg capsule,delayed 60 mg PO DAILY mood 01/27/22 04/12/22 release gabapentin 400 mg capsule 400 mg PO TID neuropathy 01/27/22 04/12/22 hydrochlorothiazide 25 mg tablet 25 mg PO DAILY Fluid 01/27/22 04/12/22 irbesartan 300 mg tablet 300 mg PO DAILY bp 01/27/22 04/12/22 pravastatin 40 mg tablet 40 mg PO HS hld 01/27/22 04/12/22 terazosin 1 mg capsule 1 mg PO HS * 01/31/22 04/12/22 Previous Rx's Medication Instructions Recorded ketorolac 10 mg tablet 10 mg PO Q8H PRN pain 4 days #12 08/06/23 tabs ondansetron 4 mg disintegrating 4 mg PO DAILY 3 days #3 tabs 08/06/23 tablet tamsulosin 0.4 mg capsule (Flomax) 0.4 mg PO DAILY 7 days #7 caps 08/06/23 Allergies Allergy/AdvReac Type Severity Reaction Status Date / Time Penicillins Allergy Intermediate I-RASH Verified 04/12/22 15:25 PFSH
[2023-08-06 16:16] LABS: Microscopic, Urine URINE MICROSCOPIC (MICROSCOPIC)
[2023-08-06 16:21] LABS: Appearance,Urine CLEAR (Clear); Bilirubin,Urine Negative (Negative); Blood, Urine TRACE-I (Negative); Color,Urine YELLOW (Yellow); Glucose,Urine (UA) Negative (Negative); Ketones,Urine Negative (Negative); Leukocyte Esterase,Urine Negative (Negative); Nitrate,Urine Negative (Negative); Protein,Urine TRACE (Negative); Specific Gravity, Urine >= 1.030 (1.005-1.030); Urobilinogen,Urine 0.2 EU/dl (0.2)
[2023-08-06 16:33] LABS: Calcium Oxalate Crystals,Urine 1+ /lpf; Squamous Epithelial Cell,Urine Occasional #/hpf (0-5)
[2023-08-06 16:35] LABS: Lactic Acid 0.7 mmol/L (0.7-2.1)
[2023-08-06 17:56] VITALS: BP 162/86; PULSE 56; RESP 16; TEMP 36.7
== END 2023-08-06 17:59 | disposition home or self-care (01) ==
PROVIDERS: Emergency Provider Emergency Medicine; PCP Family Medicine
DX: N13.0 Hydronephrosis with ureteropelvic junction obstruction (principal); N13.4 Hydroureter; R10.32 Left lower quadrant pain; M54.59 Other low back pain; I10 Essential (primary) hypertension; E78.5 Hyperlipidemia, unspecified; E03.9 Hypothyroidism, unspecified; F32.A Depression, unspecified
CPT/HCPCS: 74177; 80053; 81001; 83605; 83690; 85025; 96374; 96375; 99285; J0131; J2405; Q9967

== ENCOUNTER → 2023-08-23 06:51 | Outpatient (CLI) | payer MEDICARE, OTHER, SELFPAY ==
[2023-08-23 08:43] LABS: Chloride 106 mmol/L (98-107); Potassium 4.3 mmoL/L (3.5-5.1); Sodium 141 mmol/L (136-145)
[2023-08-23 08:45] LABS: Alanine Aminotransferase 26 U/L (12-78); Aspartate Amino Transferase 33 U/L (17-59); Blood Urea Nitrogen 33 mg/dl (9-20); Estimated Glomerular Filt Rate 66 ml/min (>60); GFR (African American) 80 ML/MIN (>60)
[2023-08-23 08:46] LABS: Albumin Level 4.4 g/dl (3.5-5.0); Albumin/Globulin Ratio 1.8 (1.1-1.8); Alkaline Phosphatase 82 U/L (38-126); Anion Gap 9.3 mEq/L (5-15); Bilirubin,Total 0.5 mg/dl (0.2-1.3); Calcium 8.5 mg/dl (8.4-10.2); Carbon Dioxide 30 mmol/L (22.0-30.0); Chol/HDL Ratio 3.9 (1-3.5); Cholesterol 159 mg/dl (140-200); Globulin 2.5 g/dL (1.3-3.2); Glucose 102 mg/dl (74-100); HDL Cholesterol 41 mg/dl (40-60); Total Protein,Serum 6.9 g/dl (6.3-8.2); Triglycerides 149 mg/dl (30-150); VLDL Cholesterol 30 mg/dL (0-40)
[2023-08-23 08:57] LABS: Direct LDL Cholesterol 75.25 mg/dL (100-129)
[2023-08-23 09:17] LABS: Thyroid Stimulating Hormone 0.85 uIU/mL (0.465-4.68)
[2023-08-23 09:35] LABS: Prostate Specific Ag Screen 1.8 ng/ml (0.0-4.0)
== END ==
PROVIDERS: PCP Family Medicine; Visit Provider Family Medicine
DX: E03.9 Hypothyroidism, unspecified (principal); Z12.5 Encounter for screening for malignant neoplasm of prostate; I10 Essential (primary) hypertension; E78.5 Hyperlipidemia, unspecified
CPT/HCPCS: 36415; 80053; 80061; 84443; G0103

== ENCOUNTER 2025-03-13 11:43 | Outpatient (CLI) | payer MEDICARE, OTHER, SELFPAY ==
--- OUTSIDE RECORDS SUMMARY | 2024-06-13 07:00 | XMS_ITS ---
Author Organization [facility] Address [address] [facility] [address] [facility] [address] [place] [place] [phone] Care Team Providers Care Patrol Deputy Sheriff Name Role Phone Jenise Huddleston Primary Care Provider [phone] Allergies Allergen (clinical drug ingredient) Drug/Non Drug Allergy documented on EMR Reaction Allergy Type Onset Date Status Penicillin Unknown Drug Allergy Active REASON FOR VISIT -[facility] ER f/u, suture removal Medications Medication SIG (Take, Route, Frequency, Duration) Notes Start Date End Date Status Fenofibrate 160 MG 1 tablet Orally Once a day for 90 days Active Omeprazole 20 MG 1 cap(s) Orally once daily for 90 days Active Irbesartan 300 MG 1 tab(s) Orally once daily for 90 days Active Pravastatin Sodium 40 MG 1 tab(s) orally once a day for 90 days Active Gabapentin 400 MG 1 cap(s) orally 3 ti mes a day for 90 days 04/16/2024 Active Meloxicam 15 MG TAKE 1 TABLET EVERY DAY for 90 Active Terazosin HCl 5 MG 1 cap(s) Orally once a day (at bedtime) Active DULoxetine HCl 60 MG 1 cap(s) orally onc e a day for 90 days Active traZODone HCl 50 MG TAKE 1 TABLET AT BED TIME for 90 days Active Levothyroxine Sodium 88 MCG TAKE 1 TABLE T EVERY DAY for 90 Active Vital Signs Blood pressure systolic 144 mm Hg 06/13/20 24 Blood pressure diastolic 86 mm Hg 024 Heart Rate 67 /min 06/13/2024 Height 65 in 06/13/2024 Weight 181.2 lbs 06/13/2024 BMI 30.15 kg/m2 06/13/2024 Encounters Encounter Location Date Provider [facility] [address] [facility] [address] [place] [place] [id number] 06/13/2024 Jenise Huddleston Laceration of neck, initial encounter S11.91XA and Dog bite, initial encounter W54.0XXA Assessments Encounter Date Diagnosis (ICD Code) Assessment Notes Treatment Notes Treatment Clinical Notes Section Notes 06/13/2024 Laceration of neck, initial encounter (ICD-10 - S11.91XA) Sutures removed. Wound care instructions given 06/13/2024 Dog bite, initial encounter (ICD-10 - W54.0XXA) Plan Of Treatment Treatment Notes Assessment Notes Laceration of neck, initial encounter Lan tures removed. Wound care instructions given Next Appt Details Follow Up: prn, Reason: Progress Notes * ELAINA HENDERSONDOB:[birth year] (69 yo M)Acc No.[id number]:06/13/2024 Patient: ELAINA GALEANA Provider: Jenise Huddleston M.D. :1955 A ge:69 Y S ex:Male Date:06/13/2024 Address:[address] [place], [place] [id number] Subjective: * Chief Complaints: * 1 . -[facility] ER f/u, suture removal. * HPI: D ermatology: 69 year old male presents with c/o Animal Bite P t presents today for a suture removal from the left side of the neck. Pt sts that his sons dog bit him Monday. Pt sts that he waited in the ER for 4.5-5 hours. Pt sts that he got bite around 1 PM and did not get stitches placed until after 4 PM. His last tetanus shot was November 2022. * ROS: D ERMATOLOGY: no R marvin. n o H bridgett. G ASTROENTEROLOGY: no N ausea. n o V omiting. U ROLOGY: no D ifficulty urinating. n o B lood in urine. * Medical History: H ypertension, Hyperlipidemia, Hypothyroidism, GERD, BPH, Cervical radiculopathy - WC, Hearing loss, Hx of adenomatous colon polyp, OA, COVID 19 04/2021. * Surgical History: C -scope with adenomatous polyp - Dr. Garcia 2005, Partial thyroidectomy - Dr. Tuttle 06/2012, Normal heart cath/ Dr. Lim 01/2016, Cervical discectomy, hemicorpectomy, fusion - Dr. Blake 03/2017, Urolift procedure 03/11/2022. * Hospitalization/Major Diagno stic Procedure: [facility] ER-piece of steel removed from right arm 09/2014, [facility]- neck surgery 04/10- , [facility]-uncontrolled hypertension\intractable neck pain 10/2020, [facility] ER - Dog Bite 06/08/2024. * Family History: F ather: . M other: , coronary artery disease. 3 brother(s) , 3 sister(s) . 1 son(s) , 1 daughter(s) . . * Social History: C URRENT TOBACCO USE S moking Status: Patient does NOT smoke. C affeine: no, frequency:. Home smoke detector use: yes. Marital Status: . Past smoking status: no. Alcohol: no. * Medications: T aking Meloxicam 15 MG Tablet TAKE 1 TABLET EVERY DAY , Taking Terazosin HCl 5 MG Capsule 1 cap(s) Orally once a day (at bedtime) , Taking Fenofibrate 160 MG Tablet 1 tablet Orally Once a day , Taking Omeprazole 20 MG Capsule Delayed Release 1 cap(s) Orally once daily , Taking Irbesartan 300 MG Tablet 1 tab(s) Orally once daily , Taking Pravastatin Sodium 40 MG Tablet 1 tab(s) orally once a day , Taking Gabapentin 400 MG Capsule 1 cap(s) orally 3 times a day , Taking DULoxetine HCl 60 MG Capsule Delayed Release Particles 1 cap(s) orally once a day , Taking traZODone HCl 50 MG Tablet TAKE 1 TABLET AT BEDTIME , Taking Levothyroxine Sodium 88 MCG Tablet TAKE 1 TABLET EVERY DAY , Medication List reviewed and reconciled with the patient * Allergies: P enicillin. Objective: * Vitals: W t:181.2, Temp:98.4, BP:144/86, HR:67, Nurse:MARIBEL, Ht: 65, BMI:30.15. * Examination: D ermatology: Head and neck: 1 .5 cm laceration on left anterior neck with [address] Wound is healing well with no significant erythema, induration, or drainage.. Assessment: * Assessment: 1. L aceration of neck, initial encounter - S11.91XA (Primary) 2 . D og bite, initial encounter - W54.0XXA Plan: * Treatment: * Follow Up: p rn * Billing Information: * Visit Code: 76021 Office Visit, Est Pt., Level 3. * Procedure Codes: * Electronic signature of Jenise Huddleston MD on 03/13/2025 at 11:47 AM EDT Sign off status: Pending * Provider: Jenise Huddleston M.D. Date: 0 06/13/2024 Generated for Kevon durbin/John/Olgaransmitting on: 0 03/13/2025 11:47 AM EDT History and Physical Notes * HPI (History of Present Illness) Category Sub-Category Detail Notes Category Not es Dermatology Animal Bite Pt presents toda y for a suture removal from the left side of the neck. Pt sts that his sons dog bit him Monday. Pt sts that he waited in the ER for 4.5-5 hours. Pt sts that he got bite around 1 PM and did not get stitches placed until after 4 PM His last tetanus shot was November 2022 Examination Category Sub-Category Detail Notes Category Not es Dermatology Head and neck: 1.5 cm laceratio n on left anterior neck with [address]. Wound is healing well with no significant erythema, induration, or drainage.
--- OUTSIDE RECORDS SUMMARY | 2024-11-26 10:45 | XMS_ITS ---
Author Organization [facility] Address [address] [facility] [address] [place] [phone] Care Team Providers Care Cuff Presser Name Role Phone Jenise Huddleston Primary Care Provider [phone] Allergies Allergen (clinical drug ingredient) Drug/Non Drug [...] 29 Performing Lab: Notes/Report: Test performed by [facility] [address] [place] [address] , [address], [place] [address] Omar Fraser MD, Tire Recapping Machine Operator CLIA: [id number] Sodium 139 135-145 mmol/L Potassium 4.1 3.5-5.3 [...] 1.1-2.5 P-Lipid Panel Reviewed date:11/28/2024 08:35:40 AM Interpretation:[id number] Performing Lab: Notes/Report: Test performed by [facility] [address] [place] [address] , [address], [place] [address] Omar Fraser MD, Tire Recapping Machine Operator CLIA: [id number] Cholesterol 160 <200 mg/dL Triglycerides 167 <150 [...] Interpretation:Normal Performing Lab: Notes/Report: Test performed by [facility] [facility] [address] [place] [address] Dr. [facility], [place] [address] Omar Fraser MD, Tire Recapping Machine Operator CLIA: [id number] PSA 1.95 <4.00 ng/mL Please note this is an ultrasensitive PSA assay with a lower limit of detection of 0.014 ng/mL. This test is performed by the [employer] ECLIA methodology. Values obtained with different assay methods or kits cannot be directly compared. P-TSH Reviewed date:11/28/2024 08:35:40 AM Interpretation:Normal Performing Lab: Notes/Report: Test performed by [facility] [facility] [address] [place] [address] [address] , [place] [address] Omar Fraser MD, Tire Recapping Machine Operator CLIA: [id number] TSH 1.57 0.43-5.25 mU/L REASON FOR VISIT Check Up and Annual Wellness Visit Medications Medication SIG (Take, Route, Frequency, Duration) Notes Start Date End Date Status DULoxetine HCl 60 MG 1 cap(s) orally onc e a day Active Levothyroxine Sodium 88 MCG 1 tab(s) ora lly once a day for 90 days Active Pravastatin Sodium 40 MG 1 tab(s) orally once a day Active Fenofibrate 160 MG 1 tablet Orally Once a day for 90 days Active Omeprazole 20 MG 1 cap(s) Orally once daily for 90 days Active Pravastatin Sodium 40 MG 1 tab(s) orally once a day for 90 days Active Irbesartan 300 MG 1 tab(s) Orally once daily for 15 day(s) Active Terazosin HCl 5 MG 1 cap(s) Orally once a day (at bedtime) for 90 days Active Gabapentin 400 MG 1 cap(s) orally 3 ti mes a day for 90 days 11/26/2024 Active Meloxicam 15 MG 1 tablet Orally Once a day Active amLODIPine Besylate-Valsartan 5-320 MG 1 tablet Orally Once a day 11/26/2024 Active Terazosin HCl 5 MG 1 cap(s) Orally once a day (at bedtime) Active Levothyroxine Sodium 88 MCG TAKE 1 TABLE T EVERY DAY for 90 Active traZODone HCl 50 MG TAKE 1 TABLET AT BED TIME for 90 days Active Immunizations Vaccine Route Administration Date Status Comme nts Prevnar (PCV20) IM Intramuscular 11/26/2024 Administered Problems Problem Type SNOMED Code ICD Code Onset Dates Problem Status W/U Status Risk Notes Problem Body mass index 30.00 to 34.99 ([id number] 107) BMI 31.0-31.9,a dult (Z68.31) Active confirmed Vital Signs Blood pressure systolic 150 mm Hg 11/27/19 25 Blood pressure diastolic 98 mm Hg 025 Heart Rate 70 /min 11/26/2024 Height 65 in 11/26/2024 Weight 187.2 lbs 11/26/2024 BMI 31.15 kg/m2 11/26/2024 Encounters Encounter Location Date Provider Diagnosis [facility] [address] [phone] 11/26/2024 R Roderick Huddleston Adult general medica [...] MCG 1 tab(s) ora lly once a day for 90 days Pravastatin Sodium 40 MG 1 tab(s) orally once a day Fenofibrate 160 MG 1 tablet Orally Once a day for 90 days Omeprazole 20 MG 1 cap(s) Orally once daily for 90 days Gabapentin 400 MG 1 cap(s) orally 3 ti mes a day for 90 days 11/26/2024 Meloxicam 15 MG 1 [...] JOSE ALBERTO HENDERSON:[birth year] (69 yo M)Acc No.[id number]:11/26/2024 Annual Wellness Visit Patient: ELAINA GALEANA Provider: Jenise Huddleston M.D. :1955 A ge:69 Y S ex:Male Date:11/26/2024 Address:[address] [place], [place] [phone] Subjective: * Chief Complaints: * 1 . [...] arm 09/2014, - neck surgery 04/10- , [facility]-uncontrolled hypertension\intractable neck pain 10/2020, [facility] ER - Dog Bite 06/08/2024. * [...] Temp:98.5, BP:150/98, HR:70, O2 Sat:96% on RA, Nurse:randall, Ht: 65, BMI:31.15. * Examination: C ardiology: General Appearance: p leasant, NAD. HEENT: TYONEK but otherwise normal. Carotid upstroke: n ormal, no bruits. Heart sounds: R RR. Murmur, click , gallop: n one. Lungs: c lear, no rales or wheezes. Extremities: n o leg edema. * Physical Examination: G ENERAL: [...] the past 12 months. D epression Screening: Malcolm stokes depressed mood or anxiety. Describes emotional health [...] for immunization - Z23 1 1. B VT 31.0-31.9,adult - Z68.31 Plan: * Treatment: 2. [...] (Collection Date & Time - 11/26/2024 01:49 PM)?[id number] * Value Reference Range C holesterol / [...] : 0.5 mL (Route: Intramuscular) given by JOSE MARTIN Mcmanus on Left Deltoid (Encounter for immunization) [...] OF ACTIVITY ASSESS, 1036F TOBACCO NON- USER, [address]69 CBC WITH AUTO DIFF, 3077F SYST BP [...] normal. * Follow Up: 6 Months * Billing Information: * Visit Code: 23020 Office Visit, Est Pt., Level 4. Modifiers: [...] LEVEL OF ACTIVITY ASSESS. 1036F TOBACCO NON-USER. 48583 CBC WITH AUTO DIFF. 3077F SYST BP = 140 MM HG6 IT. 3080F DIAST BP = 90 MM HG. G8510 NEG SCR Depression PT NOT ELIG F/U/PLN DOC. 4040F PNEUMOC IMM ORDER/ADMIN. * Electronic signature of Jenise Huddleston MD on 03/13/2025 at 11:46 AM EDT Sign off status: Pending * Provider: Jenise Huddleston M.D. Date: 0 11/26/2024 Generated for Kevon durbin/John/Monetitting on: 0 03/13/2025 11:46 AM EDT History and Physical Notes * [...] Lungs: clear, no rales or wheezes HEENT: TYONEK but otherwise no rmal Heart sounds: RRR Carotid upstroke: normal, no bruits Extremities: no leg edema Murmur, click , gallop: none General Appearance: pleasant, NAD
--- OUTSIDE RECORDS SUMMARY | 2025-03-04 11:15 | XMS_ITS ---
Author Organization [facility] Address [address] [facility] [address] [phone] Care Team Providers Care Pipe Organ Tuner And Repairer Name Role Phone Jenise Huddleston Primary Care Provider Allergies Allergen (clinical drug ingredient) Drug/Non Drug Allergy documented on EMR Reaction Allergy Type Onset Date Status Penicillin Unknown Drug Allergy Active REASON FOR VISIT having issues breathing and [...] AT BED TIME for 90 days Active amLODIPine Besylate-Valsartan 5-320 MG TAKE 1 TABLET EVERY DAY for 90 Active Omeprazole 20 MG 1 cap(s) Orally once daily for 90 days Active Levothyroxine Sodium 88 MCG 1 tab(s) ora lly once a day for 90 days Active Fenofibrate 160 MG 1 tablet Orally Once a day for 90 days Active Pravastatin Sodium 40 MG 1 tab(s) orally once a day Active Terazosin HCl 5 MG 1 cap(s) Orally once a day (at bedtime) Active Levothyroxine Sodium 88 MCG TAKE 1 TABLE T EVERY DAY for 90 Active Irbesartan 300 MG 1 tab(s) Orally once daily for 15 day(s) Active Pravastatin Sodium 40 MG 1 tab(s) orally once a day for 90 days Active Terazosin HCl 5 MG 1 cap(s) Orally once a day (at bedtime) for 90 days Active Vital Signs Blood pressure systolic 130 mm Hg 03/04/20 25 Blood pressure diastolic 90 mm Hg 025 Heart Rate 79 /min 03/04/2025 Height 65 in 03/04/2025 Weight 189.4 lbs 03/04/2025 BMI 31.51 kg/m2 03/04/2025 Encounters Encounter Location Date Provider Diagnosis [facility] [address] [place] [phone] 03/04/2025 Jenise Huddleston Exertional chest ventura n R07.9 and Dyspnea on exertion R06.00 Assessments Encounter Date Diagnosis (ICD Code) Assessment Notes Treatment Notes Treatment Clinical Notes Section Notes 03/04/2025 Exertional chest pain (ICD-10 - R07.9) 03/04/2025 Dyspnea on exertion (ICD-10 - R06.00) Plan Of Treatment Pending Test Test Name Order Date Echocardiogram 03/04/2025 Cardiac Stress Test Exercise Cardiolyte 03/04/2025 Next Appt Details Follow Up: after tests, Reas on: Progress Notes * SANTIAGOELAINADOB:[birth year] (69 yo M)Acc No.[id number]:03/04/2025 Progress Notes Patient: ELAINA GALEANA Provider: Jenise Huddlesotn M.D. :1955 A ge:69 Y S ex:Male Date:03/04/2025 Address:[address] [place], [place] [phone] Subjective: * Chief Complaints: * 1 . [...] arm 09/2014, - neck surgery 04/10- , [facility]-uncontrolled hypertension\intractable neck pain 10/2020, [facility] ER - Dog Bite 06/08/2024. * [...] Temp: 98.6, BP: 130/90, HR: 79, Nurse: mm, Ht: 65, BMI:31.51. * Examination: C ardiology: General Appearance: p leasant, NAD. Carotid upstroke: n ormal, no bruits. Heart sounds: R RR, normal S1, S2. Murmur, click , gallop: n one. Lungs: c lear, no rales or wheezes. N o chest wall tenderness. Assessment: * Assessment: 1. E xertional chest pain - R07.9 (Primary) 2 . D yspnea on exertion - R06.00 Plan: * Treatment: ?Imaging: Cardiac Stress Test Exercise Cardiolyte* Angy Patton 03/04/2025 04:3 0:07 PM EDT > no auth required as MCR is primary; CPT code 93705; faxed to [facility] Scheduling * Procedure Codes: G 2211 Complex e/m visit add on, 1036F TOBACCO NON-USER * Follow Up: a fter tests * Billing Information: * Visit Code: 16889 Office Visit, Est Pt., Level 3. * Procedure Codes: G2211 Complex e/m visit add on. 1036F TOBACCO NON-USER. * Electronic signature of Jenise Huddleston MD on 03/13/2025 at 11:47 AM EDT Sign off status: Pending * Provider: Jenise Huddleston M.D. Date: 03/04/2025 Generated for Alissai gifty/John/eTransmitting on: 0 03/13/2025 11:47 AM EDT History and Physical Notes * Examination Category Sub-Category Detail Notes Category Not es Cardiology Lungs: clear, no rales or wheezes No chest wall tenderness Heart sounds: RRR, normal S1, S2 Carotid upstroke: normal, no bruits Murmur, click , gallop: none General Appearance: pleasant, NAD
--- NOTE | 2025-03-13 | CA_ITS ---
APPROVED REPORT Exam: Exercise Treadmill Technologist: Ina Davis Ht: 5 ft 6 in Wt: 190 lbs BSA: 1.96 m2 HR: 63 bpm BP: 121/74 mmHg Rhythm: NSR Medical History Medical History: HTN, Hyperlipidemia, Smoking Medications: Levothyroxine, Meloxicam, Duloxetine, Omeprazole, Fenofibrate, Pravastatin, Gabepentin, Terazosin, Trazadone, Amlodipine Valsartan Allergies: Penicillin Cardiac Risk Factors: HTN, Hyperlipidemia, FHX of CAD, Smoking Stress Test Details Test: Exercise stress testing was performed using a Thomas protocol. HR Resting HR: 63 bpm Max Heart Rate (APMHR): 150 bpm Max HR Achieved: 129 bpm Target HR (85% APMHR): 128 bpm % of APMHR: 86 Recovery HR: 99 bpm HR response to stress: Normal HR response to stress BP Resting BP: 121.0/74.0 mmHg Max BP: 150.0/80.0 mmHg Recovery BP: 149.0/73.0 mmHg BP response to stress: Normal blood pressure response to stress. ECG Resting ECG: NSR Stress EC.[address] depression Arrhythmia: PVCs Clinical Exercise duration: 7.12 min Exercise capacity: 9.2 METs Stress ECG Conclusion Patient had shortness of breath with peak exercise Ectopy: PVCs noted in recovery ST changes: 0.[address] depression CONCLUSION Average exercise capacity. No evidence of ischemia on ECG at peak stress. Myoview images reported separately. Electronically signed by : Celi Ferreira MD 03/14/2025 15:45:10
--- OUTSIDE RECORDS SUMMARY | 2025-03-13 11:46 | XMS_ITS | Clinical Summary ---
Author Organization Healthcare Address [address] [place] [id number] Care Team Providers Care Environmental Service Aide Name Role Phone North Huddleston MD Primary Care Provider [phone] Family History Medical History Relation Name Comments Conversions - Other Other 1 Back pro blem Other cancer Other 2 Heart attack Other 3 Relation Name Status Comments Other 1 Other 2 Other 3 Social History Tobacco Use Types Packs/Day Years Used Date Smoking Tobacco: Never Alcohol Use Standard Drinks/Week Comments Yes 0 (1 standard drink = 0.6 oz pur e alcohol) Sex and Gender Information Value Date Recorded Sex Assigned at Not on file Legal Sex Male 7:33 PM EDT Gender Identity Not on file Sexual Orientation Not on file Last Filed Vital Signs Vital Sign Reading Time Taken Comments Blood Pressure - - Pulse - - Temperature - - Respiratory Rate - - Oxygen Saturation - - Inhaled Oxygen Concentration - - Weight 84.9 kg (187 lb 2.7 oz) 06/02/2017 2:21 P M EDT Height 167.6 cm (5' 6 ) 06/02/2017 2:21 PM EDT Body Mass Index 30.21 06/02/2017 2:21 PM EDT Plan of Treatment Health Maintenance Due Date Last Done Comments [facility]-Depression Screening 1955 [facility]-/Child/Adol SDOH Screenings 1955 [facility]- SDOH Screenings 1972 [facility]-Adult SDOH Screenings 1972 [facility]-DTaP,Tdap,and Td Vaccine s (1 - Tdap) 1973 CT Colonography 1999 Colonoscopy 1999 FIT-DNA 1999 FIT 1999 FOBT 1999 Sigmoidoscopy 1999 [facility]-Colorectal Cancer Screening 1999 [facility]-Pneumococcal Vaccine: 50 + Years (1 of 1 - PCV) 2004 [facility]-Zoster Vaccines (1 of 2) 2004 XTZ-EPKRE-50 Vaccine (1 - 20 24-25 season) 2024 [facility]-Influenza Vaccine (Seaso n Ended) 2025 [facility]-RSV Vaccine: 60+ Years o r (1 - 1-dose 75+ series) 2029 HPV Vaccines Aged Out No longer eligi ble based on patient's age to complete this topic [facility]-HIB Vaccines Aged Out No longer e ligible based on patient's age to complete this topic [facility]-Hepatitis A Vaccines Aged Out No longer eligible based on patient's age to complete this topic [facility]-IPV Vaccines Aged Out No longer e ligible based on patient's age to complete this topic [facility]-Rotavirus Vaccines Aged Out No lo nger eligible based on patient's age to complete this topic Care Teams Environmental Service Aide Relationship Specialty Start Date End Date North Huddleston MD [address] [place] [id number] PCP - General 02/05/21
--- OUTSIDE RECORDS SUMMARY | 2025-03-13 11:46 | XMS_ITS | Patient Health Record ---
Author Organization [facility] Address [address] [facility] [address] [place] [id number] Care Team Providers Care Dining Room Captain Name Role Phone Jenise Huddleston Primary Care Provider Jose Kaplan Unavailable [phone] Allergies Allergen (clinical drug ingredient) Drug/Non Drug [...] 29 Performing Lab: Notes/Report: Test performed by [facility] [employer] [employer] [address] [place] [address] , [address], [place] [address] Omar Fraser MD, Cylinder Filler CLIA: [id number] Sodium 139 135-145 mmol/L Potassium 4.1 3.5-5.3 [...] 1.1-2.5 P-Lipid Panel Reviewed date:11/28/2024 08:35:40 AM Interpretation:[id number] Performing Lab: Notes/Report: Test performed by [employer] [address] [place] [address] , [place] [address] Omar Fraser MD, Cylinder Filler CLIA: [id number] Cholesterol 160 <200 mg/dL Triglycerides 167 <150 [...] Interpretation:Normal Performing Lab: Notes/Report: Test performed by [employer] [address] [place] [address] , [facility] [address], [place] [address] Omar Fraser MD, Cylinder Filler CLIA: [id number] PSA 1.95 <4.00 ng/mL Please note this is an ultrasensitive PSA assay with a lower limit of detection of 0.014 ng/mL. This test is performed by the [employer] ECLIA methodology. Values obtained with different assay methods or kits cannot be directly compared. P-TSH Reviewed date:11/28/2024 08:35:40 AM Interpretation:Normal Performing Lab: Notes/Report: Test performed by [employer] [address] [place] [address] , [address], [place] [address] Omar Fraser MD, Cylinder Filler CLIA: [id number] TSH 1.57 0.43-5.25 mU/L Medications Medication SIG (Take, Route, Frequency, Duration) Notes Start Date End Date Status Omeprazole 20 MG 1 cap(s) Orally once [...] Orally once a day (at bedtime) Active Gabapentin 400 MG 1 cap(s) orally 3 ti mes a day for 90 days 11/26/2024 Active Meloxicam 15 MG 1 tablet Orally Once a day Active Levothyroxine Sodium 88 MCG TAKE 1 TABLE T EVERY DAY for 90 Active DULoxetine HCl 60 MG 1 cap(s) orally onc e a day Active Irbesartan 300 MG 1 tab(s) Orally once daily for 15 day(s) Active traZODone HCl 50 MG TAKE 1 TABLET AT BED TIME for 90 days Active Pravastatin Sodium 40 MG 1 tab(s) orally once a day for 90 days Active amLODIPine Besylate-Valsartan 5-320 MG TAKE 1 TABLET EVERY DAY for 90 Active Terazosin HCl 5 MG 1 cap(s) Orally once a day (at bedtime) for 90 days Active Immunizations Vaccine Route Administration Date Status Comme nts Tetanus Tdap-Adacel (over 7yrs) Unknown 11/30/2022 Administered Shingrix Unknown 07/25/2022 Administered Shingrix Unknown 04/25/2023 Administered Prevnar (PCV20) IM Intramuscular 11/26/2024 Administered COVID 19 Moderna Unknown 09/24/2021 Administered COVID 19 Moderna Unknown 04/25/2022 Administered COVID 19 Harsha Unknown 03/01/2021 Administered Problems Problem Type SNOMED Code ICD Code Onset Dates Problem Status W/U Status Risk Notes Problem Gastroesophageal reflux disease (859298193) GERD (gastroesophageal reflux disease) (K21.9) Active confirmed Problem Hypertension (41458071) HTN (hypertension) (I10) Active confirmed Problem Benign prostatic hyperplasia (278213659) BPH (benign prostatic hyperplasia) (N40.0) Active confirmed Problem 3650369 Primary insomnia (F51.01) Active confirmed Problem 5028133 Hesitancy of micturition (R39.11) Active confirmed Problem Depressive disorder (51044507) Depressive disorder (F32.9) Active confirmed Problem Acquired hypothyroidism (238207887) Acquired hypothyroidism (E03.9) Active confirmed Problem 078371534 Primary osteoarthritis involving multiple joints (M15.0) Active confirmed Problem Body mass index 30.00 to 34.99 (661830098508132) BMI 31.0-31.9,adult (Z68.31) Active confirmed Problem Dyslipidemia (798757715) Dyslipidemia (E78.5) Active confirmed Problem 128524483 Benign prostatic hyperplasia with lower urinary tract symptoms (N40.1) Active confirmed Problem 49609685 Bilateral hearin g loss, unspecified hearing loss type (H91.93) Active confirmed Problem 217217362 Cervical spondylosis (M47.812) Active confirmed Vital Signs Heart Rate 79 /min 03/04/2025 Blood pressure diastolic 90 mm Hg 03/04/2025 Height 65 in 03/04/2025 Blood pressure systolic 130 mm Hg 03/04/2025 Weight 189.4 lbs 03/04/2025 BMI 31.51 kg/m2 03/04/2025 Encounters Encounter Location Date Provider Diagnosis [place] [address] [facility] [address] [place] [id number] 05/02/2024 R Roderick Flaquito Hypotension I95.9 [place] [address] [facility] [address] [place] [id number] 06/13/2024 R Roderick Flaquito Laceration of neck, initial encounter S11.91XA and Dog bite, initial encounter W54.0XXA [place] [address] [facility] [address] [place] [id number] 11/26/2024 R Roderick [place] Adult general medica l examination Z00.00 ; Cervical spondylosis M47.812 ; HTN (hypertension) I10 ; Acquired hypothyroidism E03.9 ; Dyslipidemia E78.5 ; GERD (gastroesophageal reflux disease) K21.9 ; Colon polyps K63.5 ; Depressive disorder F32.9 ; Prostate cancer screening Z12.5 ; Encounter for immunization Z23 and BMI 31.0-31.9,adult Z68.31 [place] [address] [place] [id number] 03/04/2025 R Roderick Flaquito Exertional chest ventura n R07.9 and Dyspnea on exertion R06.00 [place] [address] [place] [id number] 04/16/2024 Jose Wynne Cervical spondylosis M47.812 [facility] [address] [facility] [address] [place] [id number] 05/24/2024 R Roderick [place] [facility] [address] [facility] [address] [place] [id number] 10/07/2024 R Roderick [place] [facility] [address] [place] [id number] 11/28/2024 R Roderick Huddleston [facility] [address] [place] [id number] 11/28/2024 R Roderick Zacariast [facility] [address] [place], [place] [id number] 12/02/2024 R Roderick Huddleston [facility] [address] [place] [id number] 01/08/2025 R Roderick Huddleston [facility] [address] [place] [id number] 03/08/2025 R Roderick Huddleston Assessments Encounter Date Diagnosis (ICD Code) Assessment Notes Treatment Notes Treatment Clinical Notes Section Notes 04/16/2024 Cervical spondylosis (ICD-10 - M47.812) 05/02/2024 Hypotension (ICD-10 - I95.9) Hypotension has resolved and blood pressure is now elevated. He is advised to monitor his blood pressure closely at home and if he experiences low readings, he should only take half of his irbesartan. 06/13/2024 Dog bite, initial encounter (ICD-10 - W54.0XXA) 06/13/2024 Laceration of neck, initial encounter (ICD-10 - S11.91XA) Sutures removed. Wound care instructions given 11/26/2024 Adult general medical examination (ICD-10 - Z00.00) Patient instructed to return to office Annually for Annual Wellness Visits to include annual screenings of Pain assessment, Functional Ability assessment, Cognitive Ability assessment, Fall Risk assessment, Depression screening and Bladder control screening. 11/26/2024 Cervical spondylosis (ICD-10 - M47.812) 03/04/2025 Exertional chest pain (ICD-10 - R07.9) 03/04/2025 Dyspnea on exertion (ICD-10 - R06.00) 11/26/2024 HTN (hypertension) (ICD-10 - I10) 11/26/2024 [...] 31.0-31.9,adult (ICD-10 - Z68.31) Plan Of Treatment Pending Test Test Name Order Date Echocardiogram 03/04/2025 Cardiac Stress Test Exercise Cardiolyte 03/04/2025 Insurance Providers Payer Name Payer Address Payer Phone Subscriber Number Group Number Insured Name Patient Relationship to Insured Coverage Start Date Coverage End Date MEDICARE PART B [address] [address] [place] [address] [id number] ELAINA HENDERSON Self - patient is the insured [employer] [address] [address] [place] [phone] [id number] ELAINA HENDERSON Self - patient is the insured Medical (General) History Medical History History ICD Code Hypertension hyperlipidemia Hypothyroidism GERD BPH Cervical radiculopathy - WC Hearing loss Hx of adenomatous colon polyp OA COVID 19 04/2021 Surgical History Surgery Date(Month/Year) C-scope with adenomatous polyp - Dr. Ja conde 2005 Partial thyroidectomy - Dr. Tuttle 07/14 12 Normal heart cath/ Dr. Lim 01/2016 Cervical discectomy, hemicorpectomy, fus ion - Dr. Blake 03/2017 Urolift procedure 03/11/2022 Hospitalization History Reason Date(Month/[facility] 2023 [facility]-uncontrolled hypertension\intractabl e neck pain 10/2020 [facility]- neck surgery 04/10- [facility] ER-piece of steel removed from right arm 09/2014
--- OUTSIDE RECORDS SUMMARY | 2025-03-13 11:47 | XMS_ITS ---
Author Organization Unknown [facility] Start Date Provider Encounter for Check-up [id number] [facility]
--- NOTE | 2025-03-13 11:50 | NM_ITS ---
APPROVED REPORT Exam: Nuclear Stress Test Indication: cp..soa..fatigue Patient Location: Outpatient Stress Tech: Ina Davis [place] Tech:Zakia MccloudDANIELA RT(R)(N) Ht: 5 ft 6 in Wt: 190 lbs HR: 63 bpm BP: 121/74 mmHg BSA: 1.96 m2 TID: 1.11 BMI: 30.6 History: cp..soa..fatigue Procedure: Patient exercised on Thomas protocol 7:12 minutes and sec, resting heart rate 63 bpm, resting blood pressure 121/74 mmHg, with exercise maximum heart rate achived was 129 bpm which is 86 % of the maximum predicted heart rate and blood pressure was 150/80 mmHg. Test was stopped due to fatigue. Patient denied any complaint of chest pain. Patient has average exercise capacity, achieved 9.2 METs of workload on treadmill, the blood pressure response to exercise was normal. Cardiac Stress and Resting SPECT Images: Cardiac Stress and Resting SPECT images were obtained using technetium 99m Myoview 32.0 mCi stress and 10.66 mCi at rest. Resting and stress imaging in supine and prone positions demonstrate a small-sized, moderate, predominantly fixed perfusion defect in the basal lateral LV wall. There is a small region of surrounding reversibility. Gated imaging demonstrates normal global LV systolic function. LVEF is calculated at 58%. Conclusion: Small-sized, moderate, predominantly fixed perfusion defect in the basal lateral LV wall. There is a small region of surrounding reversibility. Findings are suggestive of partial reversible ischemia. Gated imaging demonstrates normal global LV systolic function. LVEF is calculated at 58%. Electronically signed by : Celi Ferreira MD 03/14/2025 15:35:53
--- NOTE | 2025-03-13 12:26 | CA_ITS ---
APPROVED REPORT EXAM: Comprehensive 2D, Doppler, and color-flow Echocardiogram Online Merchandising Coordinator: Gardenia Garcia RVT Ht: 5 ft 6 in Wt: 190lbs BSA: 1.96 BP: 134/76 mmHg Indications: CHEST PAIN 2D Dimensions Left Atrium 4.99 cm M: 3.0 - 4.0 LA Volume 21.60 mL RVID Base (AP4) 2.84 cm (M/F) 2.5-4.1 LA Volume Index 11.02 mL/m2 (M/F) 16-34 LVOT 2.03 cm (M/F) 1.5-2.5 EF AP4 52.50 % GL Strain -13.1 % M-Mode Dimensions RVDd 3.37 cm (0.9-2.6) LVDd 4.49 cm (3.5-5.7) Ao Diam 3.06 cm (2.0-3.7) LVDs 3.00 cm (3.5-5.7) IVSd 0.89 cm (0.6-1.1) PWd 0.66 cm (0.6-1.1) EF (Teich) 62.00% FS 33.20% EDV (Teich) 92.00 mL TAPSE 2.87 (<1.7) ESV (Teich) 35.00 mL LV Diastology E Decel Time 269 (160-240 msec) E/A Ratio 0.8 MED E' 6.7 (>= 7 cm/sec) E'/MED E' Ratio 9.46 (<= 14) LAT E' 6.2 (>= 10 cm/sec) E/LAT E' Ratio 10.23 (<= 14) Aortic Valve LVOT Max 121.0 (70-110 cm/s) AI Index 1.71 cm2/m2 LVOT VTI 24.23 cm AoV Peak Noe. 127.0 (50-130 cm/s) AI PHT 770.00 ms AO Peak GR. 4.90 mmHg AO Mean GR. 3.70 (<5 mmHg) AO VTI 23.3 (18-25 cm) AI (VTI) 3.36 (2.5-4.5 cm2) Mitral Valve MV E Max Noe. 63.0 (40-130 cm/s) MV A Velocity 82.0 (40-130 cm/s) E/A Ratio 0.77 MV Decel. Time 269 (160-240 ms) Left Ventricle The left ventricle is normal size. The left ventricular systolic function is normal. The left ventricular ejection fraction is within the normal range. There is increased LV wall thickness. LVEF is 60%. Transmitral Doppler flow pattern suggests impaired LV relaxation. Right Ventricle Right ventricle is mildly dilated. Right ventricle is mildly hypokinetic. Atria Left atrium is mildly dilated. Right atrium is mildly dilated. There is no Doppler evidence of interatrial shunt. Aortic Valve The aortic valve is mildly thickened. There is no aortic valvular stenosis. Mild aortic regurgitation. Mitral Valve The mitral valve is normal in structure. No evidence of mitral valve stenosis. Trace mitral regurgitation. Tricuspid Valve Tricuspid valve is grossly normal in structure and function. Trace tricuspid regurgitation. There is insufficient TR jet to estimate RVSP. Pulmonic Valve The pulmonary valve is normal in structure. Trace pulmonic regurgitation. Great Vessels The aortic root is normal in size. IVC is normal in size and collapses >50% with inspiration. Pericardium There is no pericardial effusion. Other Information Study Quality: Fair Conclusion Normal LV systolic function. Mild RV dilation with mild reduction in RV function. Mild biatrial dilation. Mild AI. Electronically signed by : Celi Ferreira MD 03/17/2025 22:50:35
[2025-03-13] MEDS: SODIUM CHLORIDE 0.9% 10ML SYR (RAD ONLY) 10 ML IV ×2 (13:47→13:48)
[2025-03-13] MEDS: ISOTOPE MYOVIEW (PER STUDY) 1 DOSE IV (13:47)
== END 2025-03-13 23:59 | disposition home or self-care (01) ==
LOC: RAD 11:44
PROVIDERS: PCP Family Medicine; Visit Provider Family Medicine
DX: I35.1 Nonrheumatic aortic (valve) insufficiency (principal); I51.7 Cardiomegaly; R94.39 Abnormal result of other cardiovascular function study; R07.9 Chest pain, unspecified; R53.83 Other fatigue
CPT/HCPCS: 78452; 93017; 93018; 93306; A9502

== ENCOUNTER 2025-04-07 08:45 | Day surgery (SDC) | payer MEDICARE, OTHER, SELFPAY ==
[2025-04-07] VITALS (12 sets, daily range): BP systolic 142–161; BP diastolic 77–90; PULSE 53–70; RESP 18; TEMP 36.7; O2SAT 90–96; BMI 29.3
--- NOTE | 2025-04-07 07:26 | IR_ITS ---
APPROVED REPORT Patient Location: Outpatient Pile Driving Technician: Dayne Alcantara, RT (R) PROCEDURES Left heart catheterization Left ventriculogram Selective coronary angiogram Intravascular ultrasound to the proximal and mid LAD Drug-eluting stent deployment to the proximal and mid LAD in a contiguous manner Drug-eluting stent deployment to the first diagonal artery INDICATION Coronary artery disease, Abnormal Myoview, Angina pectoris, Complex coronary artery disease with some angiographic ambiguity Informed consent was obtained prior to the procedure. COMPLICATIONS none Estimated Blood Loss: less than 10ml TECHNIQUE One percent lidocaine used to anesthetize the right anterior aspect of the wrist. The right radial artery was accessed via the Seldinger technique. A 6 Hungarian sheath was placed in the right radial artery. 2.5 mg of Verapamil, 800 mcg of nitroglycerin, 1mg Lidocaine and 5000 U Heparin were given through the arterial sheath. The JL3 catheter was also used to perform left heart catheterization, left ventriculogram and selective coronary angiogram. At the end of the diagnostic angiogram therapeutic Was administered giving a therapeutic ACT and the guide catheter was placed in the in the LAD and intravascular ultrasound probe was advanced which demonstrated heavy plaque burden at the bifurcation of the large diagonal artery and proximal LAD with an MLA measuring 3.4 mm???. Because of this a 3.5 x 38 mm Varun frontier stent was placed just distal to the first diagonal artery and deployed it to 14 tessa. A 4 mm x 18 mm Varun frontier stent was attempted to place proximal to this yet still overlapping however there was a geographical miss on deployment which IVUS indicated there was not adequate overlap between the 2 stents. Because of this a 4 mm x 12 mm [place] frontier stent was placed between the 2 stents at 20 tessa and then advanced a full length and deployed at 20 tessa to post dilate the mid LAD. The balloon was brought back and deployed at 24 tessa at the overlap section as well as in the proximal portion of the LAD stent. An additional Choice PT extra-support wire was placed in the first diagonal artery and a 2.5 x 12 mm compliant balloon was deployed at 15 tessa to open the struts going into the diagonal artery. A 2.5 x 15 mm [place] frontier stent was placed in the proximal LAD extending into the ostial and proximal segment of the first diagonal artery and deployed at 15 tessa. A 4 mm x 12 mm noncompliant balloon was then placed over the LAD wire in the mid LAD deployed at 20 tessa and then pulled back and deployed at 24 tessa adjacent to the first diagonal artery and back into the proximal LAD. YOHAN-3 flow was present before and after the procedure. At the end the procedure the apparatus was removed the sheath was removed hemostasis was achieved using TR banding patient was transferred to the postop putting in stable condition ANGIOGRAPHIC RESULTS The left main artery Normal The left anterior descending artery Has proximal 20 to 30% stenosis followed by a focal 80% stenosis immediately adjacent to a large first diagonal artery followed by an additional 80% concentric stenosis. The LAD is large and wraps the apex The circumflex artery Nondominant normal The right coronary artery Dominant normal The GARRETT ventriculogram reveals Normal 65% The left ventricular end-diastolic pressure 15 mmHg IMPRESSION Severe proximal and mid LAD disease as described above with severe disease in the large first diagonal artery Successful stenting of the proximal to mid LAD severe disease reduced to 0% with 3 contiguous drug-eluting stents Successful bifurcating stenting into a large first diagonal artery severe disease reduced to 0% with 1 drug-eluting stent Normal ejection fraction Normal LVEDP PLAN 1. Effient and aspirin 2. LDL less than 55 to be achieved with high intensity statin 3. Avoidance of tobacco products 4. Risk factor modification 5. Cardiac rehabilitation Electronically signed by : Telly Lim MD 04/07/2025 11:34:27
[2025-04-07 08:57] LABS: Hematocrit 39.9 % (42.0-52.0); Hemoglobin 13.3 g/dL (14.1-18.0); Immature Granulocytes % 0.2 %; Mean Corpuscular HGB Conc 33.3 g/dL (31.8-35.4); Mean Corpuscular Hemoglobin 30.2 pg (27.0-31.2); Mean Corpuscular Volume 90.5 fl (80-94); Nucleated Red Blood Cells % 0 %; Platelet Count 251 K/mm3 (142-424); Red Blood Count 4.41 M/mm3 (4.60-6.20); Red Cell Distribution Width-SD 44.2 fL; White Blood Count 6.1 K/mm3 (4.8-10.8)
[2025-04-07 09:17] LABS: Alanine Aminotransferase 28 U/L (12-78); Albumin Level 4.4 g/dl (3.5-5.0); Alkaline Phosphatase 72 U/L (38-126); Anion Gap 14.4 mEq/L (5-15); Aspartate Amino Transferase 35 U/L (17-59); Bilirubin,Direct 0.7 mg/dl (0.0-0.4); Bilirubin,Indirect 0.1 mg/dL (0.0-0.9); Bilirubin,Total 0.8 mg/dl (0.2-1.3); Bilirubin,Unconjugated 0.1 mg/dL (0.0-1.1); Blood Urea Nitrogen 31 mg/dl (9-20); Calcium 9.4 mg/dl (8.4-10.2); Carbon Dioxide 27 mmol/L (22.0-30.0); Chloride 104 mmol/L (98-107); Cholesterol 156 mg/dl (140-200); Creatinine Clearance Estimated 73 mL/min (50-200); Creatinine,Serum 1.10 mg/dl (0.66-1.25); Estimated Glomerular Filt Rate 66 ml/min (>60); GFR (African American) 80 ML/MIN (>60); Glucose 101 mg/dl (74-100); HDL Cholesterol 48 mg/dl (40-60); Magnesium 2.0 mg/dl (1.6-2.3); Potassium 4.4 mmoL/L (3.5-5.1); Sodium 141 mmol/L (136-145); Total Protein,Serum 7.0 g/dl (6.3-8.2); Triglycerides 178 mg/dl (30-150)
[2025-04-07 09:47] LABS: Thyroid Stimulating Hormone 0.73 uIU/mL (0.465-4.68)
[2025-04-07 09:59] LABS: Free T4 (Free Thyroxine) 1.39 ng/dl (0.78-2.19)
[2025-04-07] MEDS: HEPARIN 1,000 UNITS/500ML NS (CATH LAB) 3000 UNIT IV (10:18)
[2025-04-07] MEDS: HEPARIN 1,000 UNITS/ML 10ML VIAL (CATH LAB) 5000 UNIT IV (10:19)
[2025-04-07] MEDS: VERAPAMIL 2.5MG/ML 2ML VIAL 2.5 MG IV (10:19)
[2025-04-07] MEDS: LIDOCAINE 1% 10ML MDV 10 ML IJ (10:19)
[2025-04-07] MEDS: NITROGLYCERIN 800MCG/8ML SYR (CATH LAB) 800 MCG IA (10:20)
[2025-04-07] MEDS: MIDAZOLAM HCL 1MG/ML 5ML VIAL 1 MG IV (10:48)
[2025-04-07] MEDS: 0.9 % SODIUM CHLORIDE 500 ML 25 ML IV (10:49)
[2025-04-07] MEDS: FENTANYL 100MCG/2ML VIAL 50 MCG IV (10:49)
[2025-04-07] MEDS: PRASUGREL 10MG TAB 60 MG PO (11:25)
--- NOTE | 2025-04-07 11:50 | SUR.PHASEII ---
Dr. Lim asked about pt having beta isaías d/t stenting. HR 57, no new orders at this time.
[2025-04-07] MEDS: IOPAMIDOL-370 (76%);100ML BOTTLE 180 ML IV (13:33)
== END 2025-04-07 14:37 | disposition home or self-care (01) ==
PROVIDERS: Nurse Practitioner; PCP Family Medicine; Visit Provider Internal Medicine
PROC: 4A023N7 Measurement of Cardiac Sampling and Pressure, Left Heart, Percutaneous Approach (ICD-10-PCS; CPT 93452; principal; 2025-04-07 09:30)
DX: I25.118 Atherosclerotic heart disease of native coronary artery with other forms of angina pectoris (principal); R94.39 Abnormal result of other cardiovascular function study; R94.31 Abnormal electrocardiogram [ECG] [EKG]; I10 Essential (primary) hypertension; E78.49 Other hyperlipidemia; R06.81 Apnea, not elsewhere classified; R40.0 Somnolence; R06.09 Other forms of dyspnea; Z79.82 Long term (current) use of aspirin; Z79.890 Hormone replacement therapy; Z79.899 Other long term (current) drug therapy; Z88.0 Allergy status to penicillin
CPT/HCPCS: 92978; 93458; C9600; C9601; 36415; 80048; 80061; 80076; 83735; 84439; 84443; 85025; 92928; 92929; 99152; 99153; C1725; C1769; C1874; J1200; J1644; J2003; J3010; J7040; Q9967

== ENCOUNTER 2025-04-10 07:04 | Outpatient (CLI) | payer MEDICARE, OTHER, SELFPAY ==
--- OUTSIDE RECORDS SUMMARY | 2024-11-26 10:45 | XMS_ITS ---
Author Organization [facility] Address [address] [facility] [address] [place] [id number] Care Team Providers Care Web Specialist Name Role Phone Jenise Huddleston Primary Care [...] 29 Performing Lab: Notes/Report: Test performed by [facility] [address] [place] [address] , [address], [place] [address] Omar Fraser MD, Hand Singer CLIA: [id number] Sodium 139 135-145 mmol/L Potassium 4.1 3.5-5.3 [...] Interpretation: Performing Lab: Notes/Report: Test performed by [facility] [address] [place] [address] , [address], [place] [address] Omar Fraser MD, Hand Singer CLIA: [id number] Cholesterol 160 <200 mg/dL Triglycerides 167 <150 [...] Interpretation:Normal Performing Lab: Notes/Report: Test performed by [facility] [address] [place] [address] Dr. [facility], [place] [address] Omar Fraser MD, Hand Singer CLIA: [id number] PSA 1.95 <4.00 ng/mL Please note this is an ultrasensitive PSA assay with a lower limit of detection of 0.014 ng/mL. This test is performed by the [employer] ECLIA methodology. Values obtained with different assay methods or kits cannot be directly compared. P-TSH Reviewed date:11/28/2024 08:35:40 AM Interpretation:Normal Performing Lab: Notes/Report: Test performed by [facility] [address] [place] [address] [address] , [place] [address] Omar Fraser MD, Hand Singer CLIA: [id number] TSH 1.57 0.43-5.25 mU/L REASON FOR VISIT [...] Problem Status W/U Status Risk Notes Problem BMI 31.0-31.9,ad ult (Z68.31) Active confirmed Vital Signs Blood pressure systolic 150 mm Hg 11/27/19 25 Blood pressure diastolic 98 mm Hg 025 Heart Rate 70 /min 11/26/2024 Height 65 in 11/26/2024 Weight 187.2 lbs 11/26/2024 BMI 31.15 kg/m2 11/26/2024 Encounters Encounter Location Date Provider Diagnosis [facility] [address] [phone] 11/26/2024 R Roderick Huddleston Adult general medica l examination Z00.00 [...] Appt Details Follow Up: 6 Months, Reason: Progress Notes * JOSE ALBERTO HENDERSON:[birth year] (69 yo M)Acc No.[id number]:11/26/2024 Annual Wellness Visit Patient: ELAINA GALEANA Provider: Jenise Huddleston M.D. :1955 A ge:69 Y S ex:Male Date:11/26/2024 Address:[address] [place], [place] [phone] Subjective: * Chief Complaints: * 1 . [...] arm 09/2014, - neck surgery 04/10- , [facility]-uncontrolled hypertension\intractable neck pain 10/2020, [facility] ER - Dog Bite 06/08/2024. * [...] General Appearance: p leasant, NAD. H EENT: TEJON but otherwise normal. C arotid upstroke: n [...] past 12 months. D epression Screening: D tasneemies depressed mood or anxiety. Describes emotional health as: calm. B ladder Control Screening: sharri elizondo. Assessment: * Assessment: 1. A gustavo general medical examination - Z00.00 (Primary) 2 [...] for immunization - Z23 1 1. B MA 31.0-31.9,adult - Z68.31 Plan: * Treatment: 2. [...] (Collection Date & Time - 11/26/2024 01:49 PM)?[id number] * Value Reference Range C holesterol / [...] Bernstein 11/26/2024 4:09:1 5 PM > Jenise Huddelston 11/28/2024 8:35:31 AM >See phone encounter * [...] OF ACTIVITY ASSESS, 1036F TOBACCO NON- USER, [address] CBC WITH AUTO DIFF, 3077F SYST BP [...] * Images: Billing Information: * Visit Code: 63829 Office Visit, Est Pt., Level 4. Modifiers: [...] LEVEL OF ACTIVITY ASSESS. 1036F TOBACCO NON-USER. 79156 CBC WITH AUTO DIFF. 3077F SYST BP = 140 MM HG6 IT. 3080F DIAST BP = 90 MM HG. G8510 NEG SCR Depression PT NOT ELIG F/U/PLN DOC. 4040F PNEUMOC IMM ORDER/ADMIN. * Electronic signature of Jenise Huddleston MD on 04/10/2025 at 07:09 AM EDT Sign off status: Pending * Provider: Jenise Huddleston M.D. Date: 0 11/26/2024 Generated for Kevon durbin/John/Monetitting on: 0 04/10/2025 07:09 AM EDT History and Physical Notes * [...] Lungs: clear, no rales or wheezes HEENT: TEJON but otherwise no rmal Heart sounds: RRR Carotid upstroke: normal, no bruits Extremities: no leg edema Murmur, click , gallop: none General Appearance: pleasant, NAD
--- OUTSIDE RECORDS SUMMARY | 2025-03-04 11:15 | XMS_ITS ---
Author Organization [facility] Address [address] [place] [phone] Care Team Providers Care Lunchroom Aide Name Role Phone Jenise Huddleston Primary Care [...] [facility] [address] [place], [place] [phone] 03/04/2025 Jenise Huddleston Exertional chest ventura n [...] after tests, Reas on: Progress Notes * ELAINA HENDERSONDOB:[birth year] (69 yo M)Acc No.[id number]:03/04/2025 Progress Notes Patient: ELAINA GALEANA Provider: Jenise Huddleston M.D. :1955 A ge:69 Y S ex:Male Date:03/04/2025 Address:[address] [place], [place] [phone] Subjective: * Chief Complaints: * 1 . [...] arm 09/2014, - neck surgery 04/10- , [facility]-uncontrolled hypertension\intractable neck pain 10/2020, [facility] ER - Dog Bite 06/08/2024. * Family [...] Temp: 98.6, BP: 130/90, HR: 79, Nurse: [facility], Ht: 65, BMI:31.51. * Examination: C ardiology: [...] required as MCR is primary; CPT code 72649; faxed to [facility] Jenise Santos 03/16/2025 09:46:23 PM EDT > See phone encounter * Procedure Codes: G 2211 Complex e/m visit add on, 1036F TOBACCO NON-USER * Follow Up: a fter tests * Images: Billing Information: * Visit Code: 31276 Office Visit, Est Pt., Level 3. * Procedure Codes: G2211 Complex e/m visit add on. 1036F TOBACCO NON-USER. * Electronic signature of Jenise Huddleston MD on 04/10/2025 at 07:09 AM EDT Sign off status: Pending * Provider: Jenise Huddleston M.D. Date: 0 03/04/2025 Generated for Kevon durbin/John/Shalom on: 0 04/10/2025 07:09 AM EDT History and Physical Notes * Examination Category Sub-Category Detail Notes Category Not es Cardiology Lungs: clear, no rales or wheezes No chest wall tenderness Heart sounds: RRR, normal S1, S2 Carotid upstroke: normal, no bruits Murmur, click , gallop: none General Appearance: pleasant, NAD
--- OUTSIDE RECORDS SUMMARY | 2025-03-24 10:15 | XMS_ITS ---
[facility] Organization [facility] Address [address] [facility] [address] [facility] [facility] [address] [place] [phone] Care Team Providers Care Adult Daycare Coordinator Name Role Phone Jenise Huddleston Primary Care Provider Payal Knowles Unavailable [phone] Allergies Allergen (clinical drug ingredient) Drug/Non Drug Allergy documented on EMR Reaction Allergy Type Onset Date Status Penicillin Unknown Drug Allergy Active Results Component Value Reference Range Notes P-Lyme Disease (B. junie pardoi), IgG/IgM, CHRISTIE, Serum Reviewed date:03/27/2025 11:49:26 AM Interpretation: Performing Lab: Notes/Report: Test performed by [facility], Friday [address] [place] [address] , [address], [place] [address] Omar Fraser MD, [employer] CLIA: [id number] B burgdorferi (Lyme Disease) IgG Negative Negative B burgdorferi (Lyme Disease) IgM Negative Negative REASON FOR VISIT Check for southern ute disease Medications Medication SIG (Take, Route, Frequency, Duration) Notes Start Date End Date Status Levothyroxine Sodium 88 MCG TAKE 1 TABLE T EVERY DAY; Duration: 90 Active Pravastatin Sodium 40 MG 1 tab(s) orally once a day; Duration: 90 days Active Irbesartan 300 MG 1 tab(s) Orally once daily; Duration: 15 day(s) Active Omeprazole 20 MG 1 cap(s) Orally once daily; Duration: 90 days Active Terazosin HCl 5 MG 1 cap(s) Orally once a day (at bedtime); Duration: 90 days Active Gabapentin 400 MG 1 cap(s) orally 3 ti mes a day; Duration: 90 days 11/26/2024 Active traZODone HCl 50 MG TAKE 1 TABLET AT BEDTIME; Duration: 90 days Active DULoxetine HCl 60 MG 1 cap(s) orally onc e a day Active Meloxicam 15 MG TAKE 1 TABLET EVERY DAY; Duration: 90 Active amLODIPine Besylate-Valsartan 5-320 MG TAKE 1 TABLET EVERY DAY; Duration: 90 Active Levothyroxine Sodium 88 MCG 1 tab(s) ora lly once a day; Duration: 90 days Active Pravastatin Sodium 40 MG 1 tab(s) orally once a day Active Fenofibrate 160 MG 1 tablet Orally Once a day; Duration: 90 days Active Doxycycline Hyclate 100 MG 1 capsule Ora lly twice a day; Duration: 14 days 03/24/2025 Active Terazosin HCl 5 MG 1 cap(s) Orally once a day (at bedtime) Active Vital Signs Blood pressure systolic 130 mm Hg 03/24/20 25 Blood pressure diastolic 72 mm Hg 025 Heart Rate 76 /min 03/24/2025 Height 65 in 03/24/2025 Weight 184.6 lbs 03/24/2025 BMI 30.72 kg/m2 03/24/2025 Encounters Encounter Location Date Provider Diagnosis [facility] [address], [place] [id number] 03/24/2025 Payal Knowles Tick bite W57.XXXA and Lyme disease A69.20 Assessments Encounter Date Diagnosis (ICD Code) Assessment Notes Treatment Notes Treatment Clinical Notes Section Notes 03/24/2025 Tick bite (ICD-10 - W57.XXXA) 03/24/2025 Lyme disease (ICD-10 - A69.20) will Txm as Lyme disease Plan Of Treatment Medication Medication Name Sig Start Date Stop Date Notes Doxycycline Hyclate 100 MG 1 capsule Ora lly twice a day; Duration: 14 days 03/24/2025 Treatment Notes Assessment Notes Lyme disease will Txm as Lyme dis ease Next Appt Details Follow Up: will notify of te st results, Reason: Progress Notes * ELAINA HENDERSONDOB:[birth year] (69 yo M)Acc No.[id number]:03/24/2025 Progress Notes Patient: ELAINA GALEANA Provider: RUBEN Johnson :1955 A ge:69 Y S ex:Male Date:03/24/2025 Address:[address] [place] [address], [place], [id number] Pcp:Jenise Huddleston Subjective: * Chief Complaints: * 1 . Check for southern ute disease. * HPI: H PI: 69 year old male presents with c/o Patient is here today for?Pt sts he thinks he may have lyme disease and would like to be tested for it today. Pt sts he has felt very nasty and not well. 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 E NT/respiratory: generally feels awlful has pulled off unmerous ticks; no rash. c/o Fever. c/o headache. c/o body aches. Denies : sore throat. D enies : cough. D enies : rhinorrhea. D enies : smoking. * ROS: O PTHALMOLOGY: Negative for d [...] procedure 03/11/2022. * Hospitalization/Major Diagno stic Procedure: [facility] ER-piece of steel removed from right arm 09/2014, - neck surgery 04/10- , [facility]-uncontrolled hypertension\intractable neck pain 10/2020, [facility] ER - Dog Bite 06/08/2024. * [...] TAKE 1 TABLET EVERY DAY , Taking Meloxicam 15 MG Tablet TAKE 1 TABLET EVERY DAY , Medication List reviewed and reconciled with the patient * Allergies: P enicillin. Objective: * Vitals: W t: 184.6, Temp: 98.7, BP: 130/72, HR: 76, Nurse: gregorio, Ht: 65, BMI:30.72. * Examination: G eneral Examination: General Appearance: N AD, alert, pleasant, well nourished and hydrated. H eart: R RR. L ungs: C TAB A&P. S kin: n ormal, no rash.? Assessment: * Assessment: 1. L yme disease - A69.20 (Primary) 2 . T ick bite - W57.XXXA ? Plan: * Treatment: 2. T ick bite Start Doxycycline Hyclate Capsule, 100 MG, 1 capsule, Orally, twice a day, 14 days, 28 Capsule.? L AB: P-Lyme Disease (B. burgodorferi), IgG/IgM, CHRISTIE, Serum (Collection Date & Time - 03/24/2025 02:03 PM) Value Reference Range B burgdorferi (Lyme Disease) IgG Negative Negative - * B burgdorferi (Lyme Disease) IgM Negative Negative - * Payal Knowles 03/27/2025 11:48:39 AM EDT >I spoke with pt and reported results * Procedure Codes: G 2211 Complex e/m visit add on, 1036F TOBACCO NON-USER, G8783 BP SCR PRFRM RCMDD DEFIND SCR INTVL, G8752 MOST RECENT SYSTOLIC BP < 140MM HG, G8754 MOST RECENT DIASTOLIC BP < 90MM HG * Follow Up: w ill notify of test results * Images: Billing Information: * Visit Code: 18355 Office Visit, Est Pt., Level 3. * Procedure Codes: G2211 Complex e/m visit add on. 1036F TOBACCO NON-USER. G8783 BP SCR PRFRM RCMDD DEFIND SCR INTVL. G8752 MOST RECENT SYSTOLIC BP < 140MM HG. G8754 MOST RECENT DIASTOLIC BP < 90MM HG. * Electronic signature of Mahi Knowles APRN on 04/10/2025 at 07:09 AM EDT Sign off status: Pending * Provider: RUBEN Johnson Date: 0 03/24/2025 Generated for Kevon durbin/John/Shalom on: 0 04/10/2025 07:09 AM EDT History and Physical Notes * HPI (History of Present Illness) Category Sub-Category Detail Notes Category Not es ENT/respiratory sore throat cough Fever headache rhinorrhea smoking body aches HPI Patient is here today for Pt sts he thinks he may have lyme disease and would like to be tested for it today. Pt sts he has felt very nasty and not well. 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
--- OUTSIDE RECORDS SUMMARY | 2025-04-10 07:08 | XMS_ITS | Clinical Summary ---
Author Organization Healthcare Address [address] [place] [id number] Care Team Providers Care Staffing Director Name Role Phone North Huddleston MD Primary Care Provider [phone]- [phone] Family History Medical History Relation Name Comments [...] 2004 [facility]-Zoster Vaccines (1 of 2) 2004 [id number]-56 Vaccine (1 - 20 24-25 season) 2024 [facility]-Influenza Vaccine (#1) 2025 [facility]-RSV Vaccine: 60+ Years o r [...] age to complete this topic Care Teams Staffing Director Relationship Specialty Start Date End Date North Huddleston MD [address] [place] [address] PCP - General 02/05/21
--- OUTSIDE RECORDS SUMMARY | 2025-04-10 07:09 | XMS_ITS | Patient Health Record ---
Author Organization [facility] Address [address] [facility] [address] [place] [id number] Care Team Providers Care Sales Promotion Officer Name Role Phone Jenise Huddleston Primary Care Provider [phone] Jose Kaplan Unavailable [phone] Payal Knowles Unavailable [phone] Allergies Allergen (clinical drug ingredient) Drug/Non Drug Allergy documented on EMR Reaction Allergy Type Onset Date Status Penicillin Unknown Drug Allergy Active Results Component Value Reference Range Notes P-Lyme Disease (B. burgodorf renu), IgG/IgM, CHRISTIE, Serum Reviewed date:03/27/2025 11:49:26 AM Interpretation: Performing Lab: Notes/Report: Test performed by [facility] [address] [place] [address] , [address], [place] [address] Omar Fraser MD, Shiatsu Therapist CLIA: [id number] B burgdorferi (Lyme Disease) IgG Negative Negative B burgdorferi (Lyme Disease) IgM Negative Negative Cardiac Stress Test Exercise [employer]te Reviewed date:03/16/2025 09:46:32 PM Interpretation:abnomal Performing Lab: Notes/Report: abnomal Cardiac Stress Test Exercise Cardiolyte Reviewed date:03/16/2025 09:46:32 PM Interpretation:abnomal Performing Lab: Notes/Report: abnomal CBC Venipuncture (in house) Reviewed date:11/28/2024 08:35:40 [...] 29 Performing Lab: Notes/Report: Test performed by [facility] [address] [place] [address] , [place] [address] Omar Fraser MD, Shiatsu Therapist CLIA: [id number] Sodium 139 135-145 mmol/L Potassium 4.1 3.5-5.3 [...] 0.3 <0.2-1.2 mg/dL A/G Ratio 2.0 1.1-2.5 P-PSA Reviewed date:11/28/2024 08:35:40 AM Interpretation:Normal Performing Lab: Notes/Report: Test performed by [facility] [address] [place] [address] , [place] [address] Omar Fraser MD, Shiatsu Therapist CLIA: [id number] PSA 1.95 <4.00 ng/mL Please note this is an ultrasensitive PSA assay with a lower limit of detection of 0.014 ng/mL. This test is performed by the Juwan ECLIA methodology. Values obtained with different assay methods or kits cannot be directly compared. P-TSH Reviewed date:11/28/2024 08:35:40 AM Interpretation:Normal Performing Lab: Notes/Report: Test performed by [facility] [address] [place] [address] , [place] [address] Omar Fraser MD, Shiatsu Therapist CLIA: [id number] TSH 1.57 0.43-5.25 mU/L P-Lipid Panel Reviewed date:11/28/2024 08:35:40 AM Interpretation:[email or web address] Performing Lab: Notes/Report: Test performed by [facility], [employer] [address] [place] [address] [address], [place] [address] Omar Fraser MD, Shiatsu Therapist CLIA: [id number] Cholesterol 160 <200 mg/dL Triglycerides 167 <150 [...] Results: 79 Units: mg/dL % Change: -5% Medications Medication SIG (Take, Route, Frequency, Duration) Notes Start Date End Date Status Levothyroxine Sodium 88 MCG 1 tab(s) ora lly once a day; Duration: 90 days Active Pravastatin Sodium 40 MG 1 tab(s) orally once a day Active Fenofibrate 160 MG 1 tablet Orally Once a day; Duration: 90 days Active Gabapentin 400 MG 1 cap(s) orally 3 ti mes a day; Duration: 90 days 11/26/2024 Active Doxycycline Hyclate 100 MG 1 capsule [...] cap(s) orally onc e a day Active Pravastatin Sodium 40 MG 1 tab(s) orally once a day; Duration: 90 days Active Meloxicam 15 MG TAKE 1 TABLET EVERY DAY; Duration: 90 Active Irbesartan 300 MG 1 tab(s) Orally once daily; Duration: 15 day(s) Active amLODIPine Besylate-Valsartan 5-320 MG TAKE 1 TABLET EVERY DAY; Duration: 90 Active Omeprazole 20 MG 1 cap(s) Orally once daily; Duration: 90 days Active Terazosin HCl 5 MG 1 cap(s) Orally once a day (at bedtime); Duration: 90 days Active Immunizations Vaccine Route Administration Date Status Comme nts COVID 19 Harsha Unknown 03/01/2021 Administered COVID 19 Moderna Unknown 09/24/2021 Administered COVID 19 Moderna Unknown 04/25/2022 Administered Prevnar (PCV20) IM Intramuscular 11/26/2024 Administered Shingrix Unknown 07/25/2022 Administered Shingrix Unknown 04/25/2023 Administered Tetanus Tdap-Adacel (over 7yrs) Unknown 11/30/2022 Administered Problems Problem Type SNOMED Code ICD Code Onset Dates Problem Status W/U Status Risk Notes Problem Gastroesophageal reflux disease (452879010) GERD (gastroesophageal reflux disease) (K21.9) Active confirmed Problem Hypertension (42662364) HTN (hypertension) (I10) Active confirmed Problem Benign prostatic hyperplasia (886323747) BPH (benign prostatic hyperplasia) (N40.0) Active confirmed Problem Primary insomnia (9723464) Primary insomnia (F51.01) Active confirmed Problem Hesitancy of micturition (2513582) Hesitancy of micturition (R39.11) Active confirmed Problem Depressive disorder (18334953) Depressive disorder (F32.9) Active confirmed Problem Acquired hypothyroidism (190762986) Acquired hypothyroidism (E03.9) Active confirmed Problem Primary osteoarthritis (457815912) Primary osteoarthritis involving multiple joints (M15.0) Active confirmed Problem Body mass index 30.00 to 34.99 (551238941188545) BMI 31.0-31.9,adult (Z68.31) Active confirmed Problem Dyslipidemia (348949214) Dyslipidemia (E78.5) Active confirmed Problem Lower urinary tract symptoms due to benign prostatic hypertrophy (58741956141733) Benign prostatic hyperplasia with lower urinary tract symptoms (N40.1) Active confirmed Problem Hearing loss (65911905) Bilateral hearing loss, unspecified hearing loss type (H91.93) Active confirmed Problem Cervical spondylosis (969439582) Cervical spondylosis (M47.812) Active confirmed Vital Signs Heart Rate 76 /min 03/24/2025 Blood pressure diastolic 72 mm Hg 03/24/2025 Height 65 in 03/24/2025 Blood pressure systolic 130 mm Hg 03/24/2025 Weight 184.6 lbs 03/24/2025 BMI 30.72 kg/m2 03/24/2025 Encounters Encounter Location Date Provider Diagnosis [facility] [address] [facility] [address] [place] [id number] 05/02/2024 R Roderick Huddleston Hypotension I95.9 [facility] [facility] [address] [place] [id number] 06/13/2024 R Roderick Huddleston Laceration of neck, initial encounter S11.91XA and Dog bite, initial encounter W54.0XXA [facility] 121 [facility] [address] [place] [id number] 11/26/2024 R Roderick Flaquito Adult general medica l examination Z00.00 ; Cervical spondylosis M47.812 ; HTN (hypertension) I10 ; Acquired hypothyroidism E03.9 ; Dyslipidemia E78.5 ; GERD (gastroesophageal reflux disease) K21.9 ; Colon polyps K63.5 ; Depressive disorder F32.9 ; Prostate cancer screening Z12.5 ; Encounter for immunization Z23 and BMI 31.0-31.9,adult Z68.31 [facility] [address] [place], [place] [id number] 03/04/2025 R Roderick Flaquito Exertional chest ventura n R07.9 and Dyspnea on exertion R06.00 [facility] [address] [place], [place] [id number] 03/24/2025 Payal Knowles Tick bite W57.XXXA a nd Lyme disease A69.20 [facility] [address] [place], [place] [id number] 04/08/2025 R Roderick Flaquito [facility] [address] [place], [place] [id number] 04/16/2024 Jose Taylor Cervical spondylosis M47.812 [facility] [address] [place], [place] [id number] 05/24/2024 R Roderick Flaquito [facility] [address] [place], [place] [id number] 10/07/2024 R Roderick Flaquito [facility] [address] [place], [place] [id number] 11/28/2024 R Roderick Flaquito [facility] [address] [place], [place] [id number] 11/28/2024 R Roderick Flaquito [facility] [address] [place], [place] [id number] 12/02/2024 R Roderick Flaquito [facility] [address] [place], [place] [id number] 01/08/2025 R Roderick Flaquito [facility] [address] [facility] [address] [place] [id number] 03/08/2025 Jenise Huddleston [facility] [address] [facility] 36 [facility] [address] [place] [id number] 03/16/2025 Jenise Huddleston Assessments Encounter Date Diagnosis (ICD Code) [...] 03/04/2025 Dyspnea on exertion (ICD-10 - R06.00) 03/24/2025 Tick bite (ICD-10 - W57.XXXA) 03/24/2025 Lyme disease (ICD-10 - A69.20) will Txm as Lyme disease 11/26/2024 HTN (hypertension) (ICD-10 - I10) 11/26/2024 [...] Test Test Name Order Date Echocardiogram 03/04/2025 Insurance Providers Payer Name Payer Address Payer Phone Subscriber Number Group Number Insured Name Patient Relationship to Insured Coverage Start Date Coverage End Date MEDICARE PART B [address] [address] [place] [address] [id number] ELAINA HENDERSON Self - patient is the insured [employer] [address] [address] [place] [phone] [id number] ELAINA HENDERSON Self - patient is the [...] Urolift procedure 03/11/2022 Hospitalization History Reason Date(Month/Year) [facility] ER - Dog Bite 2023 [facility]-uncontrolled hypertension\intractabl e neck pain 10/2020 [facility]- neck surgery 04/10- [facility] ER-piece of steel removed from right arm 09/2014
[2025-04-10 07:24] LABS: Hematocrit 37.6 % (42.0-52.0); Hemoglobin 12.5 g/dL (14.1-18.0); Immature Granulocytes % 0.2 %; Mean Corpuscular HGB Conc 33.2 g/dL (31.8-35.4); Mean Corpuscular Hemoglobin 30.0 pg (27.0-31.2); Mean Corpuscular Volume 90.4 fl (80-94); Nucleated Red Blood Cells % 0 %; Platelet Count 238 K/mm3 (142-424); Red Blood Count 4.16 M/mm3 (4.60-6.20); Red Cell Distribution Width-SD 44.4 fL; White Blood Count 6.6 K/mm3 (4.8-10.8)
[2025-04-10 07:44] LABS: Alanine Aminotransferase 26 U/L (12-78); Albumin Level 4.2 g/dl (3.5-5.0); Albumin/Globulin Ratio 1.8 (1.1-1.8); Alkaline Phosphatase 68 U/L (38-126); Anion Gap 14.4 mEq/L (5-15); Aspartate Amino Transferase 36 U/L (17-59); Bilirubin,Total 0.5 mg/dl (0.2-1.3); Blood Urea Nitrogen 29 mg/dl (9-20); Calcium 9.4 mg/dl (8.4-10.2); Carbon Dioxide 27 mmol/L (22.0-30.0); Chloride 104 mmol/L (98-107); Creatinine,Serum 1.20 mg/dl (0.66-1.25); Estimated Glomerular Filt Rate 60 ml/min (>60); GFR (African American) 72 ML/MIN (>60); Globulin 2.3 g/dL (1.3-3.2); Glucose 102 mg/dl (74-100); Potassium 4.4 mmoL/L (3.5-5.1); Sodium 141 mmol/L (136-145); Total Protein,Serum 6.5 g/dl (6.3-8.2)
== END 2025-04-10 23:59 | disposition home or self-care (01) ==
LOC: LAB 07:05
PROVIDERS: PCP Family Medicine; Visit Provider Internal Medicine
DX: I25.10 Atherosclerotic heart disease of native coronary artery without angina pectoris (principal); I10 Essential (primary) hypertension
CPT/HCPCS: 36415; 80053; 85025

== ENCOUNTER 2025-04-25 09:53 | Outpatient (RCR) | payer MEDICARE, OTHER, SELFPAY | END 2025-06-25 08:00 | disposition home or self-care (01) | LOC: CR 09:53 | PROVIDERS: Visit Provider Nurse Practitioner | DX: I25.10 Atherosclerotic heart disease of native coronary artery without angina pectoris (principal) | CPT/HCPCS: 93798; 94626 ==

== ENCOUNTER 2025-06-20 10:18 | Outpatient (CLI) | payer MEDICARE, OTHER, SELFPAY ==
--- OUTSIDE RECORDS SUMMARY | 2024-11-26 10:45 | XMS_ITS ---
Author Organization [facility] Address [address] [facility] [address] [place] [phone] Care Team Providers Care Perfect Bind Machine Operator Name Role Phone Jenise Huddleston Primary Care Provider Allergies Allergen (clinical drug ingredient) Drug/Non Drug Allergy documented on EMR Reaction Allergy Type Onset Date Status Penicillin Unknown Drug Allergy Active Results Component Value Reference Range Notes CBC Venipuncture (in house) Reviewed date:11/28/2024 08:35:40 AM Interpretation:Normal Performing Lab: Notes/Report: Normal wbc 4.0 3.5 - 10 lymph 28.1 15 - 50 mid 6.5 2 - 15 gran 65.4 35 - 80 rbc 5.56 3.5 - 5.5 hgb 16.3 11.5 - 16.5 hct 49.4 35 - 55 mcv 88.7 75 - 100 mch 29.3 25 - 35 mchc 33.0 31 - 38 platlet 157 100 - 400 P-Comprehensive Metabolic Pa valerie (CMP) Reviewed date:11/28/2024 08:35:40 AM Interpretation:bun 29 Performing Lab: Notes/Report: Test performed by [facility] [address] [place] [address] , [address], [place] [address] Omar Fraser MD, Sanding Machine Tender [employer] CLIA: [id number] Sodium 139 135-145 mmol/L Potassium 4.1 3.5-5.3 mmol/L Chloride 104 97-108 mmol/L CO2 23 22-32 mmol/L Glucose 92 65-99 mg/dL BUN 29 8-23 mg/dL Creatinine 1.19 0.70-1.30 mg/dL Calcium 9.2 8.6-10.4 mg/dL eGFR by Creatinine 66 >59 mL/min/1.73m2 Protein 6.5 6.0-8.3 g/dL Albumin 4.3 3.5-5.3 g/dL Alkaline Phosphatase 73 40-129 IU/L ALT (SGPT) 23 <5-55 IU/L AST (SGOT) 22 <5-46 IU/L Bilirubin, Total 0.3 <0.2-1.2 mg/dL A/G Ratio 2.0 1.1-2.5 P-Lipid Panel Reviewed date:11/28/2024 08:35:40 AM Interpretation: Performing Lab: Notes/Report: Test performed by [facility] [address] [place] [address] , [address], [place] [address] Omar Fraser MD, Sanding Machine Tender [employer] CLIA: [id number] Cholesterol 160 <200 mg/dL Triglycerides 167 <150 mg/dL HDL Cholesterol 48 >39 mg/dL Cholesterol / HDL Ratio 3.33 0.00-4.99 Ratio Non-HDL Cholesterol 112 <130 mg/dL LDL Cholesterol (Calculation) 79 <130 mg/dL LDL Cholesterol Levels* Less than 100 mg/dL Optimal 100 to 129 mg/dL Near Optimal/ Above Optimal 130 to 159 mg/dL Borderline High 160 to 189 mg/dL High 190 mg/dL and above Very High * Categories as recommended by the 2004 ATPIII guidelines LDL/HDL Ratio 1.6 <3.3 Ratio LDL Cholesterol Patient History Test Date: 02/22/2024 LDL Results: 84 Units: mg/dL % Change: - Test Date: 11/26/2024 LDL Results: 79 Units: mg/dL % Change: -5% P-PSA Reviewed date:11/28/2024 08:35:40 AM Interpretation:Normal Performing Lab: Notes/Report: Test performed by [facility] [address] [place] [address] [facility], [place] [address] Omar Fraser MD, Sanding Machine Tender [employer] CLIA: [id number] PSA 1.95 <4.00 ng/mL Please note this is an ultrasensitive PSA assay with a lower limit of detection of 0.014 ng/mL. This test is performed by the [employer] ECLIA methodology. Values obtained with different assay methods or kits cannot be directly compared. P-TSH Reviewed date:11/28/2024 08:35:40 AM Interpretation:Normal Performing Lab: Notes/Report: Test performed by [facility] [address] [place] [address] [address] , [place] [address] Omar Fraser MD, Sanding Machine Tender [employer] CLIA: [id number] TSH 1.57 0.43-5.25 mU/L REASON FOR VISIT Check Up and Annual Wellness Visit Medications Medication SIG (Take, Route, Frequency, Duration) Notes Start Date End Date Status DULoxetine HCl 60 MG 1 cap(s) orally onc e a day Active Levothyroxine Sodium 88 MCG 1 tab(s) ora lly once a day; Duration: 90 days Active Pravastatin Sodium 40 MG 1 tab(s) orally once a day Active Fenofibrate 160 MG 1 tablet Orally Once a day; Duration: 90 days Active Omeprazole 20 MG 1 cap(s) Orally once daily; Duration: 90 days Active Pravastatin Sodium 40 MG 1 tab(s) orally once a day; Duration: 90 days Active Irbesartan 300 MG 1 tab(s) Orally once daily; Duration: 15 day(s) Active Terazosin HCl 5 MG 1 cap(s) Orally once a day (at bedtime); Duration: 90 days Active Gabapentin 400 MG 1 cap(s) orally 3 ti mes a day; Duration: 90 days 11/26/2024 Active Meloxicam 15 MG 1 tablet Orally Once a day Active amLODIPine Besylate-Valsartan 5-320 MG 1 tablet Orally Once a day 11/26/2024 Active Terazosin HCl 5 MG 1 cap(s) Orally once a day (at bedtime) Active Levothyroxine Sodium 88 MCG TAKE 1 TABLE T EVERY DAY; Duration: 90 Active traZODone HCl 50 MG TAKE 1 TABLET AT BEDTIME; Duration: 90 days Active Immunizations Vaccine Route Administration Date Status Comme nts Prevnar (PCV20) IM Intramuscular 11/26/2024 Administered Problems Problem Type SNOMED Code ICD Code Onset Dates Problem Status W/U Status Risk Notes Problem Body mass index 30.00 to 34.99 ([id number] 107) BMI 31.0-31.9,a dult (Z68.31) Active confirmed Vital Signs Blood pressure systolic 150 mm Hg 11/27/19 25 Blood pressure diastolic 98 mm Hg 025 Heart Rate 70 /min 11/26/2024 Height 65 in 11/26/2024 Weight 187.2 lbs 11/26/2024 BMI 31.15 kg/m2 11/26/2024 Encounters Encounter Location Date Provider Diagnosis [facility] [address] [phone] 11/26/2024 Jenies Huddleston Adult general medica l examination Z00.00 ; Cervical spondylosis M47.812 ; HTN (hypertension) I10 ; Acquired hypothyroidism E03.9 ; Dyslipidemia E78.5 ; GERD (gastroesophageal reflux disease) K21.9 ; Colon polyps K63.5 ; Depressive disorder F32.9 ; Prostate cancer screening Z12.5 ; Encounter for immunization Z23 and BMI 31.0-31.9,adult Z68.31 Assessments Encounter Date Diagnosis (ICD Code) Assessment Notes Treatment Notes Treatment Clinical Notes Section Notes 11/26/2024 Adult general medical examination (ICD-10 - Z00.00) Patient instructed to return to office Annually for Annual Wellness Visits to include annual screenings of Pain assessment, Functional Ability assessment, Cognitive Ability assessment, Fall Risk assessment, Depression screening and Bladder control screening. 11/26/2024 Cervical spondylosis (ICD-10 - M47.812) 11/26/2024 HTN (hypertension) (ICD-10 - I10) 11/26/2024 Acquired hypothyroidism (ICD-10 - E03.9) 11/26/2024 Dyslipidemia (ICD-10 - E78.5) 11/26/2024 GERD (gastroesophageal reflux disease) (ICD-10 - K21.9) 11/26/2024 Colon polyps (ICD-10 - K63.5) Discussed need for surveillance colonoscopy. He will call back when he has time in his schedule 11/26/2024 Depressive disorder (ICD-10 - F32.9) 11/26/2024 Prostate cancer screening (ICD-10 - Z12.5) 11/26/2024 Encounter for immunization (ICD-10 - Z23) 11/26/2024 BMI 31.0-31.9,adult (ICD-10 - Z68.31) Plan Of Treatment Medication Medication Name Sig Start Date Stop Date Notes DULoxetine HCl 60 MG 1 cap(s) orally onc e a day Levothyroxine Sodium 88 MCG 1 tab(s) ora lly once a day; Duration: 90 days Pravastatin Sodium 40 MG 1 tab(s) orally once a day Fenofibrate 160 MG 1 tablet Orally Once a day; Duration: 90 days Omeprazole 20 MG 1 cap(s) Orally once daily; Duration: 90 days Gabapentin 400 MG 1 cap(s) orally 3 ti mes a day; Duration: 90 days 11/26/2024 Meloxicam 15 MG 1 tablet Orally Once a day amLODIPine Besylate-Valsarta n 5-320 MG 1 tablet Orally Once a day 11/26/2024 Irbesartan 300 MG 1 tab(s) Orally once daily Terazosin HCl 5 MG 1 cap(s) Orally once a day (at bedtime) Treatment Notes Assessment Notes Adult general medical examination Patien t instructed to return to office Annually for Annual Wellness Visits to include annual screenings of Pain assessment, Functional Ability assessment, Cognitive Ability assessment, Fall Risk assessment, Depression screening and Bladder control screening. Colon polyps Discussed need for s urveillance colonoscopy. He will call back when he has time in his schedule Next Appt Details Follow Up: 6 Months, Reason: Provider Name:Jenise Bundy et, 07/24/2025 09:30:00 AM, [address], [address], [place], [place], [phone], Progress Notes * ELAINA HENDERSONDOB:[birth year] (70 yo M)Acc No.[id number]:11/26/2024 Annual Wellness Visit Patient: ELAINA GALEANA Provider: Jenise Huddleston M.D. :1955 A ge:69 Y S ex:Male Date:11/26/2024 Address:[address] [place], [place] [phone] Subjective: * Chief Complaints: * 1 . Check Up and Annual Wellness Visit. * HPI: C ardiology: He returns for scheduled follow-up and refills. He is due for blood work. He notes frequent elevations of his blood pressure at home. Denies : Chest Pain. D enies : Short of Breath. D enies : Palpitations. D enies : Leg Edema. * ROS: O PTHALMOLOGY: Negative for d enies issues with vision. * Medical History: H ypertension, Hyperlipidemia, Hypothyroidism, [...] of steel removed from right arm 09/2014, - neck surgery 04/10- , [facility]-uncontrolled hypertension\intractable neck pain 10/2020, [facility] ER - Dog Bite 06/08/2024. * [...] no. Alcohol: no. * Medications: T aking Fenofibrate 160 MG Tablet 1 tablet Orally Once a day , Taking Omeprazole 20 MG Capsule Delayed Release 1 cap(s) Orally once daily , Taking Gabapentin 400 MG Capsule 1 cap(s) orally 3 times a day , Taking traZODone HCl 50 MG Tablet TAKE 1 TABLET AT BEDTIME , Taking Levothyroxine Sodium 88 MCG Tablet TAKE 1 TABLET EVERY DAY , Taking Irbesartan 300 MG Tablet 1 tab(s) Orally once daily , Taking Pravastatin Sodium 40 MG Tablet 1 tab(s) orally once a day , Taking Terazosin HCl 5 MG Capsule 1 cap(s) Orally once a day (at bedtime) , Taking DULoxetine HCl 60 MG Capsule Delayed Release Particles 1 cap(s) orally once a day , Taking Meloxicam 15 MG Tablet 1 tablet Orally Once a day , Medication List reviewed and reconciled with the patient * Allergies: P enicillin. Objective: * Vitals: W t:187.2, Temp:98.5, BP:150/98, HR:70, O2 Sat:96% on RA, Nurse:gregorio, Ht: 65, BMI:31.15. * Examination: C ardiology: General Appearance: p leasant, NAD. H EENT: S[place]KANE but otherwise normal. C arotid upstroke: n ormal, no bruits. H eart sounds: R RR.?Murmur, click , gallop: n one. L ungs: c lear, no rales or wheezes. E xtremities:?no leg edema. * Physical Examination: G ENERAL: Pain Assessment: P ain level: 0, on a scale of 0 to 10 (10 being extreme pain). F unctional Status Assessment: P atient response to how often physical health interferes with daiy activities: Almost never Able to perform ADLs-including meal preparation, grocery shopping, housework, laundry, taking medications, or handling finances. Cognitive Status: Alert and oriented. Ambulation Status: Fully ambulatory. F all Risk Assessment: I ndependant in ambulation, adequate lighting in home. Patient has NOT fallen or had trouble walking within the past 12 months. D epression Screening: D enies depressed mood or anxiety. Describes emotional health as: calm. B ladder Control Screening: sharri elizondo. Assessment: * Assessment: 1. A dult general medical examination - Z00.00 (Primary) 2 . C ervical spondylosis - M47.812 3 . H TN (hypertension) - I10 4 . A cquired hypothyroidism - E03.9 5 . D yslipidemia - E78.5 6 . G ERD (gastroesophageal reflux disease) - K21.9 7 . C olon polyps - K63.5 ?8. D epressive disorder - F32.9 9 . P rostate cancer screening - Z12.5? 10. E ncounter for immunization - Z23 1 1. B GA 31.0-31.9,adult - Z68.31 Plan: * Treatment: 2. C ervical spondylosis Refill Gabapentin Capsule, 400 MG, 1 cap(s), orally, 3 times a day, 90 days, 270 Capsule, Refills 1. 3. H TN (hypertension) Refill Terazosin HCl Capsule, 5 MG, 1 cap(s), Orally, once a day (at bedtime), 90, Refills 1; S top Irbesartan Tablet, 300 MG, 1 tab(s), Orally, once daily; S tart amLODIPine Besylate-Valsartan Tablet, 5-320 MG, 1 tablet, Orally, Once a day, 90, Refills 1. L AB: P-Comprehensive Metabolic Panel (CMP) (Collection Date & Time - 11/26/2024 01:49 PM) b un 29 Value Reference Range A /G Ratio 2.0 1.1-2.5 - * A lbumin 4.3 3.5-5.3 - g/dL * A lkaline Phosphatase 73 40-129 - IU/L * A LT (SGPT) 23 <5-55 - IU/L * A ST (SGOT) 22 <5-46 - IU/L * B ilirubin, Total 0.3 <0.2-1.2 - mg/dL * B UN 29 H 8-23 - mg/dL * C alcium 9.2 8.6-10.4 - mg/dL * C hloride 104 97-108 - mmol/L * C O2 23 22-32 - mmol/L * C reatinine 1.19 0.70-1.30 - mg/dL * G lucose 92 65-99 - mg/dL * P otassium 4.1 3.5-5.3 - mmol/L * S odium 139 135-145 - mmol/L * P rotein 6.5 6.0-8.3 - g/dL * e GFR by Creatinine 66 >59 - mL/min/1.73m2 * Jenise Huddleston 11/28/2024 8: 35:31 AM >See phone encounter 4.?Acquired hypothyroidism? Refill Levothyroxine Sodium Tablet, 88 MCG, 1 tab(s), orally, once a day, 90 days, 90 Tablet, Refills 1.?LAB: P-TSH (Collection Date & Time - 11/26/2024 01:49 PM)?Normal* Value Reference Range T SH 1.57 0.43-5.25 - mU/L * Jenise Huddleston 11/28/2024 8: 35:31 AM >See phone encounter 5.?Dyslipidemia? Refill Fenofibrate Tablet, 160 MG, 1 tablet, Orally, Once a day, 90 days, 90 Tablet, Refills 1; Refill Pravastatin Sodium Tablet, 40 MG, 1 tab(s), orally, once a day, 90, Refills 1.?LAB: P-Lipid Panel (Collection Date & Time - 11/26/2024 01:49 PM)?[id number] * Value Reference Range C holesterol / HDL Ratio 3.33 0.00-4.99 - Ratio * C holesterol 160 <200 - mg/dL * H DL Cholesterol 48 >39 - mg/dL * L DL Cholesterol (Calculation) 79 <130 - mg/d L * L DL/HDL Ratio 1.6 <3.3 - Ratio * N on-HDL Cholesterol 112 <130 - mg/dL * T riglycerides 167 H <150 - mg/dL * Jenise Huddleston 11/28/2024 8: 35:31 AM >See phone encounter 6.?GERD (gastroesophageal reflux disease)? Refill Omeprazole Capsule Delayed Release, 20 MG, 1 cap(s), Orally, once daily, 90 days, 90, Refills 1.??7.?Colon polyps? Notes: Discussed need for surveillance colonoscopy. He will call back when he has time in his schedule??8.?Depressive disorder? Refill DULoxetine HCl Capsule Delayed Release Particles, 60 MG, 1 cap(s), orally, once a day, 90, Refills 1.??9.?Prostate cancer screening?LAB: P-PSA (Collection Date & Time - 11/26/2024 01:49 PM)?Normal* Value Reference Range P SA 1.95 <4.00 - ng/mL * Jenise Huddleston 11/28/2024 8: 35:31 AM >See phone encounter 10.?Others? Refill Meloxicam Tablet, 15 MG, 1 tablet, Orally, Once a day, 90, Refills 1.?? * Immunizations: Prevnar (PCV20) : 0.5 mL (Route: Intramuscular) given by GREGORIO Mcmanus on Left Deltoid (Encounter for immunization) * Labs: * L ab: CBC Venipuncture (in house) (Collection Date & Time - 11/26/2024) N ormal Value Reference Range w bc 4.0 3.5 - 10 * l ymph 28.1 15 - 50 * m id 6.5 2 - 15 * g ran 65.4 35 - 80 * r bc 5.56 3.5 - 5.5 * h gb 16.3 11.5 - 16.5 * h ct 49.4 35 - 55 * m cv 88.7 75 - 100 * m ch 29.3 25 - 35 * m chc 33.0 31 - 38 * p latlet 157 100 - 400 * Susan Bernstein 11/26/2024 4:09:1 5 PM > Jenise Huddleston 11/28/2024 8:35:31 AM >See phone encounter * Procedure Codes: G 0438 ANNUAL WELLNES VST; PERSNL PPS INIT, G2211 Complex e/m visit add on, G0444 ANNUAL DEPRESSION SCREENING 15 MIN, 1090F PRES/ABSN URINE INCON ASSESS, 3288F FALL RISK ASSESSMENT DOCD, 1170F FXNL STATUS ASSESSED, 1126F AMNT PAIN NOTED NONE PRSNT, 1159F MED LIST DOCD IN RCRD, 1003F LEVEL OF ACTIVITY ASSESS, 1036F TOBACCO NON- USER, 68882 CBC WITH AUTO DIFF, 3077F SYST BP = 140 MM HG6 IT, 3080F DIAST BP = 90 MM HG, G8510 NEG SCR Depression PT NOT ELIG F/U/PLN DOC, 4040F PNEUMOC IMM ORDER/ADMIN * Preventive Medicine: Counseling: E motional health: E ncouraged to try connecting with family or friends to boost mood. B ladder control: D iscussed ways to control/manage leakage of urine. Exercise: A dvised to start, increase or maintain level of exercise/physical activity. I njury prevention: D iscussed fall prevention. Discussed need for cane/walker. Potential trip hazards discussed. Immunizations: T etanus u p to date. P neumococcal r ecommended. I nfluenza u p to date. C OVID-19 u p to date. Screening / Special Tests: C olonoscopy 1 11/06/2012, repeat 5-6 years. P SA?08/22/2023, normal. * Follow Up: 6 Months * Images: Billing Information: * Visit Code: 00928 Office Visit, Est Pt., Level 4. Modifiers: 25 * Procedure Codes: G0438 ANNUAL WELLNES VST; PERSNL PPS INIT. G2211 Complex e/m visit add on. G0444 ANNUAL DEPRESSION SCREENING 15 MIN. 1090F PRES/ABSN URINE INCON ASSESS. 3288F FALL RISK ASSESSMENT DOCD. 1170F FXNL STATUS ASSESSED. 1126F AMNT PAIN NOTED NONE PRSNT. 1159F MED LIST DOCD IN RCRD. 1003F LEVEL OF ACTIVITY ASSESS. 1036F TOBACCO NON-USER. 85147 CBC WITH AUTO DIFF. 3077F SYST BP = 140 MM HG6 IT. 3080F DIAST BP = 90 MM HG. G8510 NEG SCR Depression PT NOT ELIG F/U/PLN DOC. 4040F PNEUMOC IMM ORDER/ADMIN. * Electronic signature of Jenise Huddleston MD on 06/20/2025 at 10:21 AM EDT Sign off status: Pending * Provider: Jenise Huddleston M.D. Date: 0 11/26/2024 Generated for Kevon durbin/John/eTransmitting on: 0 06/20/2025 10:21 AM EDT History and Physical Notes * HPI (History of Present Illness) Category Sub-Category Detail Notes Category Not es Cardiology Short of Breath Chest Pain Palpitations Leg Edema Physical Examination Category Sub-Category Detail Notes Section Note s GENERAL Pain Assessment: Pain level: 0, on a scale of 0 to 10 (10 being extreme pain) Functional Status Assessment: Patient response to how often physical health interferes with daiy activities: Almost never Able to perform ADLs-including meal preparation, grocery shopping, housework, laundry, taking medications, or handling finances. Cognitive Status: Alert and oriented. Ambulation Status: Fully ambulatory Fall Risk Assessment: Independant in amb ulation, adequate lighting in home. Patient has NOT fallen or had trouble walking within the past 12 months Depression Screening: Denies depressed m ood or anxiety. Describes emotional health as: calm Bladder Control Screening: small problem s Examination Category Sub-Category Detail Notes Category Not es Cardiology Lungs: clear, no rales or wheezes HEENT: [place] but otherwise no rmal Heart sounds: RRR Carotid upstroke: normal, no bruits Extremities: no leg edema Murmur, click , gallop: none General Appearance: pleasant, NAD
--- OUTSIDE RECORDS SUMMARY | 2025-03-04 11:15 | XMS_ITS ---
Author Organization [facility] Address [address] [place] [phone] Care Team Providers Care Employee Communications Intern Name Role Phone Jenise Huddleston Primary Care Provider Allergies Allergen (clinical drug ingredient) Drug/Non Drug Allergy documented on EMR Reaction Allergy Type Onset Date Status Penicillin Unknown Drug Allergy Active Results Component Value Reference Range Notes Cardiac Stress Test Exercise Cardiolyte Reviewed date:03/16/2025 09:46:32 PM Interpretation:abnomal Performing Lab: Notes/Report: abnomal Cardiac Stress Test Exercise Cardiolyte Reviewed date:03/16/2025 09:46:32 PM Interpretation:abnomal Performing Lab: Notes/Report: abnomal REASON FOR VISIT having issues breathing and heart hurts when lifting Medications Medication SIG (Take, Route, Frequency, Duration) Notes Start Date End Date Status Gabapentin 400 MG 1 cap(s) orally 3 ti mes a day; Duration: 90 days 11/26/2024 Active Meloxicam 15 MG 1 tablet Orally Once a day Active DULoxetine HCl 60 MG 1 cap(s) orally onc e a day Active traZODone HCl 50 MG TAKE 1 TABLET AT BEDTIME; Duration: 90 days Active amLODIPine Besylate-Valsartan 5-320 MG TAKE 1 TABLET EVERY DAY; Duration: 90 Active Omeprazole 20 MG 1 cap(s) Orally once daily; Duration: 90 days Active Levothyroxine Sodium 88 MCG 1 tab(s) ora lly once a day; Duration: 90 days Active Fenofibrate 160 MG 1 tablet Orally Once a day; Duration: 90 days Active Pravastatin Sodium 40 MG 1 tab(s) orally once a day Active Terazosin HCl 5 MG 1 cap(s) Orally once a day (at bedtime) Active Levothyroxine Sodium 88 MCG TAKE 1 TABLE T EVERY DAY; Duration: 90 Active Irbesartan 300 MG 1 tab(s) Orally once daily; Duration: 15 day(s) Active Pravastatin Sodium 40 MG 1 tab(s) orally once a day; Duration: 90 days Active Terazosin HCl 5 MG 1 cap(s) Orally once a day (at bedtime); Duration: 90 days Active Vital Signs Blood pressure systolic 130 mm Hg 03/04/20 25 Blood pressure diastolic 90 mm Hg 025 Heart Rate 79 /min 03/04/2025 Height 65 in 03/04/2025 Weight 189.4 lbs 03/04/2025 BMI 31.51 kg/m2 03/04/2025 Encounters Encounter Location Date Provider Diagnosis [facility] [address] [facility] 36 [facility] [address] [place], [place] [phone] 03/04/2025 Jenise Huddleston Exertional chest ventura n R07.9 and Dyspnea on exertion R06.00 Assessments Encounter Date Diagnosis (ICD Code) Assessment Notes Treatment Notes Treatment Clinical Notes Section Notes 03/04/2025 Exertional chest pain (ICD-10 - R07.9) 03/04/2025 Dyspnea on exertion (ICD-10 - R06.00) Plan Of Treatment Pending Test Test Name Order Date Echocardiogram 03/04/2025 Next Appt Details Follow Up: after tests, Reas on: Provider Name:Jenise Bundy et, 07/24/2025 09:30:00 AM, [address] [facility] 36 [facility], [address], [place], [place], [phone], Progress Notes * ELAINA HENDERSONDOB:[birth year] (70 yo M)Acc No.[id number]:03/04/2025 Progress Notes Patient: Ady ELAINA URBINA Provider: Jenise Huddleston M.D. :1955 A ge:69 Y S ex:Male Date:03/04/2025 Address:[address] [place], [place] [phone] Subjective: * Chief Complaints: * 1 . Having issues breathing and heart hurts when lifting. * HPI: C ardiology: Presents with a several month history of progressive exertional dyspnea to the point it is limiting his activity. He is now also having some associated left upper chest pain radiating to the left upper arm. It is relieved with rest. He has a significant family history of heart disease in his father and brother in addition to other risk factors. He had a normal heart cath about 10 years ago. * ROS: O PTHALMOLOGY: Negative for d [...] procedure 03/11/2022. * Hospitalization/Major Diagno stic Procedure: [facility]-piece of steel removed from right arm 09/2014, - neck surgery 04/10- , [facility]-uncontrolled hypertension\intractable neck pain 10/2020, [facility] ER - Dog Bite 06/08/2024. * [...] no. Alcohol: no. * Medications: T aking Levothyroxine Sodium 88 MCG Tablet TAKE 1 TABLET EVERY DAY , Taking Irbesartan 300 MG Tablet 1 tab(s) Orally once daily , Taking Pravastatin Sodium 40 MG Tablet 1 tab(s) orally once a day , Taking Terazosin HCl 5 MG Capsule 1 cap(s) Orally once a day (at bedtime) , Taking Omeprazole 20 MG Capsule Delayed Release 1 cap(s) Orally once daily , Taking Levothyroxine Sodium 88 MCG Tablet 1 tab(s) orally once a day , Taking Fenofibrate 160 MG Tablet 1 tablet Orally Once a day , Taking Pravastatin Sodium 40 MG Tablet 1 tab(s) orally once a day , Taking Terazosin HCl 5 MG Capsule 1 cap(s) Orally once a day (at bedtime) , Taking Gabapentin 400 MG Capsule 1 cap(s) orally 3 times a day , Taking Meloxicam 15 MG Tablet 1 tablet Orally Once a day , Taking DULoxetine HCl 60 MG Capsule Delayed Release Particles 1 cap(s) orally once a day , Taking traZODone HCl 50 MG Tablet TAKE 1 TABLET AT BEDTIME , Taking amLODIPine Besylate-Valsartan 5-320 MG Tablet TAKE 1 TABLET EVERY DAY , Medication List reviewed and reconciled with the patient * Allergies: P enicillin. Objective: * Vitals: W t: 189.4, Temp: 98.6, BP: 130/90, HR: 79, Nurse: gregorio, Ht: 65, BMI:31.51. * Examination: C ardiology: General Appearance: p leasant, NAD. C arotid upstroke:?normal, no bruits. H eart sounds: R RR, normal S1, S2. M urmur, click , gallop:?none. L ungs: c lear, no rales or wheezes. N o chest wall tenderness. Assessment: * Assessment: 1. E xertional chest pain - R07.9 (Primary) 2 . D yspnea on exertion - R06.00 Plan: * Treatment: ?Imaging: Cardiac Stress Test Exercise Cardiolyte (Performed Date - 03/13/2025)?abnomal* Angy Patton 03/04/2025 04:3 0:07 PM EDT > no auth required as MCR is primary; CPT code 39157; faxed to [facility] Jenise Santos 03/16/2025 09:46:23 PM EDT > See phone encounter * Procedure Codes: G 2211 Complex e/m visit add on, 1036F TOBACCO NON-USER * Follow Up: a fter tests * Images: Billing Information: * Visit Code: 07846 Office Visit, Est Pt., Level 3. * Procedure Codes: G2211 Complex e/m visit add on. 1036F TOBACCO NON-USER. * Electronic signature of Jenise Huddleston MD on 06/20/2025 at 10:22 AM EDT Sign off status: Pending * Provider: Jenise Huddleston M.D. Date: 0 03/04/2025 Generated for Kevon durbin/John/Monetitting on: 0 06/20/2025 10:22 AM EDT History and Physical Notes * Examination Category Sub-Category Detail Notes Category Not es Cardiology Lungs: clear, no rales or wheezes No chest wall tenderness Heart sounds: RRR, normal S1, S2 Carotid upstroke: normal, no bruits Murmur, click , gallop: none General Appearance: pleasant, NAD
--- OUTSIDE RECORDS SUMMARY | 2025-03-24 10:15 | XMS_ITS ---
Author Organization [facility] Address [address] [facility] [address] [place] [id number] Care Team Providers Care Cds Sales Advisor Name Role Phone Jenise Huddleston Primary Care Provider Payal Knowles Unavailable [phone] Allergies Allergen (clinical drug ingredient) Drug/Non Drug Allergy documented on EMR Reaction Allergy Type Onset Date Status Penicillin Unknown Drug Allergy Active Results Component Value Reference Range Notes P-Lyme Disease (B. junie pardoi), IgG/IgM, CHRISTIE, Serum Reviewed date:03/27/2025 11:49:26 AM Interpretation: Performing Lab: Notes/Report: Test performed by [email or web address], [facility] [address] [place] [address] , [address], [place] [address] Omar Fraser MD, Fan Balancer CLIA: [id number] B burgdorferi (Lyme Disease) IgG Negative Negative B burgdorferi (Lyme Disease) IgM Negative Negative REASON FOR VISIT Check for upper mattaponi disease Medications Medication SIG (Take, Route, Frequency, [...] 03/24/2025 Encounters Encounter Location Date Provider Diagnosis [facility] [address] [place], [place] [id number] 03/24/2025 Payal Knowles Tick bite W57.XXXA and [...] will notify of te st results, Reason: Provider Name:Jenise Ram, 07/24/2025 09:30:00 AM, [address], [address], [place], [place], [id number], Progress Notes * ELAINA HENDERSONDOB:[birth year] (70 yo M)Acc No.[id number]:03/24/2025 Progress Notes Patient: Ady ELAINA URBINA Provider: RUBEN Johnson :1955 A ge:69 Y S ex:Male Date:03/24/2025 Address:[address] [place] [address] [place] , [id number] Pcp:Jenise Huddleston Subjective: * Chief Complaints: * 1 . Check for upper mattaponi disease. * HPI: H PI: 69 year [...] arm 09/2014, - neck surgery 04/10- , [facility]-uncontrolled hypertension\intractable neck pain 10/2020, [facility] - [facility] Bite 06/08/2024. [...] * Images: Billing Information: * Visit Code: 71436 Office Visit, Est Pt., Level 3. * Procedure Codes: G2211 Complex e/[place] on. 1036F TOBACCO NON-USER. G8783 BP SCR PRFRM RCMDD DEFIND SCR INTVL. G8752 MOST RECENT SYSTOLIC BP < 140MM HG. G8754 MOST RECENT DIASTOLIC BP < 90MM HG. * Electronic signature of Mahi Knowles APRN on 06/20/2025 at 10:21 AM EDT Sign off status: Pending * Provider: RUBEN Johnson Date: 0 03/24/2025 Generated for Kevon durbin/John/Shalom on: 0 06/20/2025 10:21 AM EDT History [...]
--- OUTSIDE RECORDS SUMMARY | 2025-04-22 09:30 | XMS_ITS ---
Author Organization [facility] Address [address] [place] [id number] Care Team Providers Care Sanding Line Operator Name Role Phone Jenise Huddleston Primary Care Provider Allergies Allergen (clinical drug ingredient) Drug/Non Drug Allergy documented on EMR Reaction Allergy Type Onset Date Status Penicillin Unknown Drug Allergy Active REASON FOR VISIT check up, Needs labs & colon cancer screening Medications Medication SIG (Take, Route, Frequency, Duration) Notes Start Date End Date Status DULoxetine HCl 60 MG 1 cap(s) orally onc e a day Active amLODIPine Besylate-Valsartan 5-160 MG 1 tab Orally daily Active Doxycycline Hyclate 100 MG 1 capsule Ora lly twice a day; Duration: 14 days 03/24/2025 Active Meloxicam 15 MG TAKE 1 TABLET EVERY DAY; Duration: 90 Active traZODone HCl 50 MG TAKE 1 TABLET AT BEDTIME; Duration: 90 days Active Terazosin HCl 5 MG 1 cap(s) Orally once a day (at bedtime) Active Pravastatin Sodium 40 MG 1 tab(s) orally once a day Active Gabapentin 400 MG 1 cap(s) orally 3 ti mes a day; Duration: 90 days 11/26/2024 Active Fenofibrate 160 MG 1 tablet Orally Once a day; Duration: 90 days Active Levothyroxine Sodium 88 MCG 1 tab(s) ora lly once a day; Duration: 90 days Active Omeprazole 20 MG 1 cap(s) Orally once daily; Duration: 90 days Active Terazosin HCl 5 MG 1 cap(s) Orally once a day (at bedtime); Duration: 90 days Active Levothyroxine Sodium 88 MCG TAKE 1 TABLE T EVERY DAY; Duration: 90 Active Pravastatin Sodium 40 MG 1 tab(s) orally once a day; Duration: 90 days Active Irbesartan 300 MG 1 tab(s) Orally once daily; Duration: 15 day(s) Active Aspirin 81 MG 1 tablet Orally Once a day Active Effient 10 MG 1 tab Orally daily Active Problems Problem Type SNOMED Code ICD Code Onset Dates Problem Status W/U Status Risk Notes Problem Coronary arteriosclerosis (16274841) ASCVD (arteriosclerotic cardiovascular disease) (I25.10) Active confirmed Vital Signs Blood pressure systolic 100 mm Hg 04/22/20 25 Blood pressure diastolic 70 mm Hg 025 Heart Rate 65 /min 04/22/2025 Height 65 in 04/22/2025 Weight 184.6 lbs 04/22/2025 BMI 30.72 kg/m2 04/22/2025 Encounters Encounter Location Date Provider Diagnosis [facility] [address] [facility] 36 [facility] [address] [place] [id number] 04/22/2025 Jenise Huddleston HTN (hypertension) I 10 ; Hypotension due to medication I95.2 and ASCVD (arteriosclerotic cardiovascular disease) I25.10 Assessments Encounter Date Diagnosis (ICD Code) Assessment Notes Treatment Notes Treatment Clinical Notes Section Notes 04/22/2025 HTN (hypertension) (ICD-10 - I10) 04/22/2025 Hypotension due to medication (ICD-10 - I95.2) 04/22/2025 ASCVD (arteriosclerotic cardiovascular disease) (ICD-10 - I25.10) Plan Of Treatment Medication Medication Name Sig Start Date Stop Date Notes amLODIPine Besylate-Valsartan 5-160 MG 1 tab Orally daily Next Appt Details Follow Up: 3 Months, Reason: Provider Name:Jenise Ram, 07/24/2025 09:30:00 AM, [address] [facility] 36 [facility], [address], [place], [id number], Progress Notes * ELAINA HENDERSONDOB:[birth year] (70 yo M)Acc No.[id number]:04/22/2025 Progress Notes Patient: ELAINA GALEANA Provider: Jenise Huddleston M.D. :1955 A ge:69 Y S ex:Male Date:04/22/2025 Address:[address] [place] [address], [id number] Subjective: * Chief Complaints: * 1 . Check up. 2. Needs labs & colon cancer screening. * HPI: C ardiology: Since his last office visit, he underwent left heart cath per Dr. Esperanza ham due to his abnormal stress test and received 4 coronary stents. Since then he has been feeling much better. His chest pain/pressure have resolved and he is less dyspneic with exertion. He does note that his blood pressure has been running low with systolic readings less than 100. * ROS: D ERMATOLOGY: no R marvin. n o H bridgett. G ASTROENTEROLOGY: no N ausea. n o V omiting. n o D iarrhea.? U ROLOGY: no D ifficulty urinating. n o B lood in urine. * Medical History: H ypertension, Hyperlipidemia, Hypothyroidism, GERD, BPH, Cervical radiculopathy - WC, Hearing loss, Hx of adenomatous colon polyp, OA, COVID 19 04/2021, ASCVD - s/p stent x 4/ [facility]. * Surgical History: C -scope with adenomatous polyp - Dr. Garcia 2005, Partial thyroidectomy - Dr. Tuttle 06/2012, Normal heart cath/ Dr. Lim 01/2016, Cervical discectomy, hemicorpectomy, fusion - Dr. Blake 03/2017, Urolift procedure 03/11/2022, [facility]/ stent x 4/ [facility] 03/2025. * Hospitalization/Major Diagno stic Procedure: [facility] ER-piece of steel removed from right arm 09/2014, - neck surgery 04/10- , [facility]-uncontrolled hypertension\intractable neck pain 10/2020, [facility] ER - Dog Bite [...] no. Alcohol: no. * Medications: T aking Effient 10 MG Tablet 1 tab Orally daily , Taking Aspirin 81 MG Tablet Chewable 1 tablet Orally Once a day , Taking Levothyroxine Sodium 88 MCG Tablet [...] TABLET AT BEDTIME , Taking amLODIPine Besylate-Valsartan 5- 320 MG Tablet TAKE 1 TABLET EVERY DAY , Taking Meloxicam 15 MG Tablet TAKE 1 TABLET EVERY DAY , Taking Doxycycline Hyclate 100 MG Capsule 1 capsule Orally twice a day , Medication List reviewed and reconciled with the patient * Allergies: P enicillin. Objective: * Vitals: W t: 184.6, Temp: 97.8, BP: 100/70, HR: 65, Nurse: pe, Ht: 65, BMI:30.72. * Examination: C ardiology: General Appearance: p leasant, NAD. H EENT: u nremarkable. C arotid upstroke: n ormal, no bruits. H eart sounds: R RR, normal S1, S2.?Murmur, click , gallop: n one. L ungs: c lear, no rales or wheezes. A bdomen: positive BS, soft, nontender. E xtremities: n o leg edema. Assessment: * Assessment: 1. H TN (hypertension) - I10 (Primary) 2 . H ypotension due to medication - I95.2 3 . A SCVD (arteriosclerotic cardiovascular disease) - I25.10 ? Plan: * Treatment: * Procedure Codes: G 2211 Complex e/m visit add on, 1036F TOBACCO NON-USER, G8950 PREHTN/HTN BP DOC INDCD F/U DOC, G8752 MOST RECENT SYSTOLIC BP < 140MM HG, G8754 MOST RECENT DIASTOLIC BP < 90MM HG * Follow Up: 3 Months * Images: Billing Information: * Visit Code: 30670 Office Visit, Est Pt., Level 3. * Procedure Codes: G2211 Complex e/m visit add on. 1036F TOBACCO NON-USER. G8950 PREHTN/HTN BP DOC INDCD F/U DOC. G8752 MOST RECENT SYSTOLIC BP < 140MM HG. G8754 MOST RECENT DIASTOLIC BP < 90MM HG. * Electronic signature of Jenise Huddleston MD on 06/20/2025 at 10:21 AM EDT Sign off status: Pending * Provider: Jenise Huddleston M.D. Date: 0 04/22/2025 Generated for Kevon durbin/John/Monetitting on: 0 06/20/2025 10:21 AM EDT History and Physical Notes * Examination Category Sub-Category Detail Notes Category Not es Cardiology Lungs: clear, no rales or wheezes HEENT: unremarkable Heart sounds: RRR, normal S1, S2 Abdomen: positive BS, soft, n ontender Carotid upstroke: normal, no bruits Extremities: no leg edema Murmur, click , gallop: none General Appearance: pleasant, NAD
--- OUTSIDE RECORDS SUMMARY | 2025-06-10 10:30 | XMS_ITS ---
Author Organization [facility] Address [address] [place] [id number] Care Team Providers Care Plug Drill Operator Name Role Phone Jenise Huddleston Primary Care Provider [phone] Allergies Allergen (clinical drug ingredient) Drug/Non Drug Allergy documented on EMR Reaction Allergy Type Onset Date Status Penicillin Unknown Drug Allergy Active REASON FOR VISIT discuss meds Medications Medication SIG (Take, Route, Frequency, Duration) Notes Start Date End Date Status traZODone HCl 50 MG TAKE 1 TABLET AT BEDTIME; Duration: 90 days Active Doxycycline Hyclate 100 MG 1 capsule Ora lly twice a day; Duration: 14 days 03/24/2025 Active amLODIPine Besylate-Valsartan 5-160 MG 1 tab Orally daily Active Gabapentin 400 MG 1 cap(s) orally 3 ti mes a day; Duration: 90 days 11/26/2024 Active DULoxetine HCl 60 MG 1 cap(s) orally onc e a day Active Irbesartan 300 MG 1 tab(s) Orally once daily; Duration: 15 day(s) Active Terazosin HCl 5 MG 1 cap(s) Orally once a day (at bedtime); Duration: 90 days Active Omeprazole 20 MG 1 cap(s) Orally once daily; Duration: 90 days Active Fenofibrate 160 MG 1 tablet Orally Once a day; Duration: 90 days Active Terazosin HCl 5 MG 1 cap(s) Orally once a day (at bedtime) Active Effient 10 MG 1 tab Orally daily Active Aspirin 81 MG 1 tablet Orally Once a day Active Levothyroxine Sodium 88 MCG 1 tab(s) ora lly once a day; Duration: 90 days Active Pravastatin Sodium 40 MG 1 tab(s) orally once a day; Duration: 90 days Active Meloxicam 15 MG 1 tablet Orally Once a day; Duration: 90 days Active Immunizations Vaccine Route Administration Date Status Comme nts Fluzone High Dose (65yr and older) IM Intramuscular 06/10/2025 Administered Vital Signs Blood pressure systolic 104 mm Hg 06/10/20 25 Blood pressure diastolic 78 mm Hg 025 Heart Rate 74 /min 06/10/2025 Height 65 in 06/10/2025 Weight 185.0 lbs 06/10/2025 BMI 30.78 kg/m2 06/10/2025 Encounters Encounter Location Date Provider Diagnosis [facility] [address] [facility] [address] [facility] [address] [place], [place] [id number] 06/10/2025 Jenise Huddleston Neurological deficit present R29.818 and Encounter for immunization Z23 Assessments Encounter Date Diagnosis (ICD Code) Assessment Notes Treatment Notes Treatment Clinical Notes Section Notes 06/10/2025 Neurological deficit present (ICD-10 - R29.818) 06/10/2025 Encounter for immunization (ICD-10 - Z23) Plan Of Treatment Pending Test Test Name Order Date Carotid Duplex 06/10/2025 MRI : Brain w/o contrast 06/10/2025 Next Appt Details Follow Up: after tests, Reas on: Provider Name:Jenise Ram, 07/24/2025 09:30:00 AM, [address] [facility] 36 [facility], [address], [place], [id number], Progress Notes * ELAINA HEND[birth year]ONDOB:[birth year] (70 yo M)Acc No.[id number]:06/10/2025 Progress Notes Patient: Ady URBINA ELAINA Provider: Jenise Huddleston M.D. :1955 A ge:70 Y S ex:Male Date:06/10/2025 Address:[address] [place] [id number] Subjective: * Chief Complaints: * 1 . Discuss meds. * HPI: N eurology: While exercising in cardiac rehab last week, patient describes an episode of numbness of his entire left arm associated with weakness. The episode lasted less than 30 minutes but since then he has continued to have some paresthesias in the arm and does not feel his strength is normal. Denies headaches, blurred vision, dizziness. * Medical History: H ypertension, Hyperlipidemia, Hypothyroidism, [...] - Dr. Blake 03/2017, Urolift procedure 03/11/2022, LHC/ stent x 4/ [facility]ina 03/2025. * Hospitalization/Major Diagno stic Procedure: [facility]-piece of steel removed from right arm 09/2014, - neck surgery 04/10- , [facility]-uncontrolled hypertension\intractable neck pain 10/2020, [facility] - [facility]ite 06/08/2024. * Family [...] tablet Orally Once a day , Taking Irbesartan 300 MG Tablet 1 tab(s) Orally once daily , Taking Terazosin HCl 5 MG Capsule 1 cap(s) Orally once a day (at bedtime) , Taking Omeprazole 20 MG Capsule Delayed Release 1 cap(s) Orally once daily , Taking Fenofibrate 160 MG Tablet 1 tablet Orally Once a day , Taking Terazosin HCl 5 MG Capsule 1 cap(s) Orally once a day (at bedtime) , Taking Gabapentin 400 MG Capsule 1 cap(s) orally 3 times a day , Taking DULoxetine HCl 60 MG Capsule Delayed Release Particles 1 cap(s) orally once a day , Taking traZODone HCl 50 MG Tablet TAKE 1 TABLET AT BEDTIME , Taking Doxycycline Hyclate 100 MG Capsule 1 capsule Orally twice a day , Taking amLODIPine Besylate-Valsartan 5-160 MG Tablet 1 tab Orally daily , Taking Levothyroxine Sodium 88 MCG Tablet 1 tab(s) orally once a day , Taking Pravastatin Sodium 40 MG Tablet 1 tab(s) orally once a day , Taking Meloxicam 15 MG Tablet 1 tablet Orally Once a day , Medication List reviewed and reconciled with the patient * Allergies: P enicillin. Objective: * Vitals: W t: 185.0, Temp: 98.3, BP: 104/78, HR: 74, Nurse: SF, Ht: 65, BMI:30.78. * Examination: G eneral Examination: General Appearance: N AD. N kayleigh: s upple, no lymphadenopathy, no carotid bruits. H eart: R SR. L ungs: c lear to auscultation. N eurologic Exam: 4 +/5 strength in left arm. Assessment: * Assessment: 1. N eurological deficit present - R29.818 (Primary) 2 . E ncounter for immunization - Z23 Plan: * Treatment: ?Imaging: MRI : Brain w/o contrast* Angy Patton 06/11/2025 10:5 0:31 AM EDT > no auth required; CPT code 26908; faxed to [facility] Scheduling * Immunizations: Fluzone High Dose (65yr and older) : 0.5 mL (Route: Intramuscular) given by HANNAH Church , Plasma Cutting Machine Operator on Left Deltoid (Encounter for immunization) * Procedure Codes: G 2211 Complex e/m visit add on, 1036F TOBACCO NON-USER, G8783 BP SCR PRFRM RCMDD DEFIND SCR INTVL, 3074F SYST BP LT 130 MM HG, 3078F DIAST BP < 80 MM HG * Follow Up: a fter tests * Images: Billing Information: * Visit Code: 33450 Office Visit, Est Pt., Level 3. * Procedure Codes: G2211 Complex e/m visit add on. 1036F TOBACCO NON-USER. G8783 BP SCR PRFRM RCMDD DEFIND SCR INTVL. 3074F SYST BP LT 130 MM HG. 3078F DIAST BP < 80 MM HG. * Electronic signature of R Yayo Huddleston MD on 06/20/2025 at 10:22 AM EDT Sign off status: Pending * Provider: Jenise Huddleston M.D. Date: 0 06/10/2025 Generated for Kevon durbin/John/Monetitting on: 0 06/20/2025 10:22 AM EDT History and Physical Notes * HPI (History of Present Illness) Category Sub-Category Detail Notes Category Not es Neurology While exercisin g in cardiac rehab last week, patient describes an episode of numbness of his entire left arm associated with weakness. The episode lasted less than 30 minutes but since then he has continued to have some paresthesias in the arm and does not feel his strength is normal. Denies headaches, blurred vision, dizziness. Examination Category Sub-Category Detail Notes Category Not es General Examination Heart: RSR Lungs: clear to auscultatio n General Appearance: NAD Neurologic Exam: 4+/5 strength in lef t arm Neck: supple, no lymphaden opathy, no carotid bruits
--- NOTE | 2025-06-20 10:20 | MR_ITS ---
FINAL REPORT CLINICAL HISTORY: NEUROLOGICAL DEFICIT PRESENT COMPARISON: None FINDINGS: Multi planar MR imaging was obtained through the brain without contrast. The midline structures appear intact. Mild age-appropriate atrophy is noted. There are a few small foci of abnormal signal in the deep white matter, likely ischemic microvascular change. There is no evidence of Chiari malformation. On T2 and flair axial images the brain parenchyma is homogeneous. On diffusion-weighted images there is no evidence of restricted diffusion. The visualized paranasal sinuses demonstrate normal signal voids. The seventh and eighth nerve root complexes are intact. IMPRESSION: Age-appropriate atrophy and mild ischemic microvascular changes. No acute intracranial abnormality is identified. Reviewed, Interpreted and Dictated by Jaylan Grewal MD Transcribed by Ruma No Authenticated and [facility]
--- OUTSIDE RECORDS SUMMARY | 2025-06-20 10:21 | XMS_ITS | Clinical Summary ---
Author Organization Healthcare Address [address] [place] [id number] Care Team Providers Care Oil Well Logger Name Role Phone North Huddleston MD Primary Care Provider [phone] Family History Medical History Relation Name Comments [...] Date Last Done Comments [facility]-Depression Screening 1955 [facility]-Infant/Child/Adol SDOH Screenings 1955 [facility]- SDOH Screenings 1972 [facility]-Adult SDOH Screenings 1972 [facility]-DTaP,Tdap,and Td Vaccine s (1 - Tdap) 1973 CT Colonography 1999 Colonoscopy 1999 FIT-DNA 1999 FIT 1999 FOBT 1999 Sigmoidoscopy 1999 [facility]-Colorectal Cancer Screening 1999 [facility]-Pneumococcal Vaccine: 50 + Years (1 of 1 - PCV) 2004 [facility]-Zoster Vaccines (1 of 2) 2004 BUQ-LYMNT-04 Vaccine (1 - 20 24-25 season) 2025 [facility]-Influenza Vaccine (#1) 2025 [facility]-RSV Vaccine: 60+ [...] age to complete this topic Care Teams Oil Well Logger Relationship Specialty Start Date End Date North Huddleston MD [address] [place] [id number] PCP - General 02/05/21
--- OUTSIDE RECORDS SUMMARY | 2025-06-20 10:22 | XMS_ITS | Patient Health Record ---
Author Organization [facility] Address [address] [facility] [address] [place] [id number] Care Team Providers Care Integrity Assessor Name Role Phone Jenise Huddlseton Primary Care Provider [phone] Payal Knowles Unavailable [phone] Allergies Allergen (clinical drug ingredient) Drug/Non Drug Allergy documented on EMR Reaction Allergy Type Onset Date Status Penicillin Unknown Drug Allergy Active Results Component Value Reference Range Notes P-Lyme Disease (B. burgodorf renu), IgG/IgM, CHRISTIE, Serum Reviewed date:03/27/2025 11:49:26 AM Interpretation: Performing Lab: Notes/Report: Test performed by [facility] [address] [place] [address] , [address], [place] [address] Omar Fraser MD, Batch Mixer Operator CLIA: [id number] B burgdorferi (Lyme Disease) IgG Negative Negative B burgdorferi (Lyme Disease) IgM Negative Negative CBC Venipuncture (in house) Reviewed date:11/28/2024 08:35:40 [...] 29 Performing Lab: Notes/Report: Test performed by [facility] [address] [place], [place] [address] [place] , [address], [place] [address] Omar Fraser MD, Batch Mixer Operator CLIA: [id number] Sodium 139 135-145 mmol/L Potassium 4.1 3.5-5.3 [...] 1.1-2.5 P-Lipid Panel Reviewed date:11/28/2024 08:35:40 AM Interpretation:[id number] Performing Lab: Notes/Report: Test performed by [facility], [address] , [address], [place] [address] Omar Fraser MD, Batch Mixer Operator CLIA: [id number] Cholesterol 160 <200 mg/dL Triglycerides 167 <150 [...] Interpretation:Normal Performing Lab: Notes/Report: Test performed by [facility] [place] , [facility] [place] [id number] Omar Fraser MD, Batch Mixer Operator CLIA: [id number] PSA 1.95 <4.00 ng/mL Please note this is an ultrasensitive PSA assay with a lower limit of detection of 0.014 ng/mL. This test is performed by the Juwan ECLIA methodology. Values obtained with different assay methods or kits cannot be directly compared. P-TSH Reviewed date:11/28/2024 08:35:40 AM Interpretation:Normal Performing Lab: Notes/Report: Test performed by [facility] [place] , [place] [address] Omar Fraser MD, Batch Mixer Operator CLIA: [id number] TSH 1.57 0.43-5.25 mU/L Cardiac Stress Test Exercise Cardiolyte Reviewed date:03/16/2025 09:46:32 PM Interpretation:abnomal Performing Lab: Notes/Report: abnomal Cardiac Stress Test Exercise Cardiolyte Reviewed date:03/16/2025 09:46:32 PM Interpretation:abnomal Performing Lab: Notes/Report: abnomal Medications Medication SIG (Take, Route, Frequency, Duration) Notes Start Date End Date Status traZODone HCl 50 MG TAKE 1 TABLET AT BEDTIME; Duration: 90 days Active Doxycycline Hyclate 100 MG 1 capsule Ora lly twice a day; Duration: 14 days 03/24/2025 Active Effient 10 MG 1 tab Orally daily Active amLODIPine Besylate-Valsartan 5-160 MG 1 tab Orally daily Active Aspirin [...] day (at bedtime); Duration: 90 days Active Meloxicam 15 MG [...] cap(s) orally onc e a day Active Immunizations Vaccine Route Administration Date Status Comme nts COVID 19 Harsha Unknown 03/01/2021 Administered COVID 19 Moderna Unknown 09/24/2021 Administered COVID 19 Moderna Unknown 04/25/2022 Administered Fluzone High Dose (65yr and older) IM Intramuscular 06/10/2025 Administered Prevnar (PCV20) IM Intramuscular 11/26/2024 Administered Shingrix Unknown 07/25/2022 Administered Shingrix Unknown 04/25/2023 Administered Tetanus Tdap-Adacel (over 7yrs) Unknown 11/30/2022 Administered Problems Problem Type SNOMED Code ICD Code Onset Dates Problem Status W/U Status Risk Notes Problem Gastroesophageal reflux disease (107194962) GERD (gastroesophageal reflux disease) (K21.9) Active confirmed Problem Coronary arteriosclerosis (80981142) ASCVD (arteriosclerotic cardiovascular disease) (I25.10) Active confirmed Problem Hypertension (66540370) HTN (hypertension) (I10) Active confirmed Problem Benign prostatic hyperplasia (305097989) BPH (benign prostatic hyperplasia) (N40.0) Active confirmed Problem Primary insomnia (7342818) Primary insomnia (F51.01) Active confirmed Problem Hesitancy of micturition (8266448) Hesitancy of micturition (R39.11) Active confirmed Problem Depressive disorder (53121315) Depressive disorder (F32.9) Active confirmed Problem Acquired hypothyroidism (315281685) Acquired hypothyroidism (E03.9) Active confirmed Problem Primary osteoarthritis (942912912) Primary osteoarthritis involving multiple joints (M15.0) Active confirmed Problem Body mass index 30.00 to 34.99 (114702940140265) BMI 31.0-31.9,adult (Z68.31) Active confirmed Problem Dyslipidemia (086016278) Dyslipidemia (E78.5) Active confirmed Problem Lower urinary tract symptoms due to benign prostatic hypertrophy (61933323825140) Benign prostatic hyperplasia with lower urinary tract symptoms (N40.1) Active confirmed Problem Hearing loss (01717260) Bilateral hearing loss, unspecified hearing loss type (H91.93) Active confirmed Problem Cervical spondylosis (809754872) Cervical spondylosis (M47.812) Active confirmed Vital Signs Heart Rate 74 /min 06/10/2025 Blood pressure diastolic 78 mm Hg 06/10/2025 Height 65 in 06/10/2025 Blood pressure systolic 104 mm Hg 06/10/2025 Weight 185.0 lbs 06/10/2025 BMI 30.78 kg/m2 06/10/2025 Encounters Encounter Location Date Provider Diagnosis [facility] [address] [place], [place] [id number] 11/26/2024 Jenise Huddleston Adult general medica l examination Z00.00 ; Cervical spondylosis M47.812 ; HTN (hypertension) I10 ; Acquired hypothyroidism E03.9 ; Dyslipidemia E78.5 ; GERD (gastroesophageal reflux disease) K21.9 ; Colon polyps K63.5 ; Depressive disorder F32.9 ; Prostate cancer screening Z12.5 ; Encounter for immunization Z23 and BMI 31.0-31.9,adult Z68.31 [facility] [address] [place], [place] [id number] 03/04/2025 R Roderick Flaquito Exertional chest ventura n R07.9 and Dyspnea on exertion R06.00 [facility] [address] [place], [place] [id number] 03/24/2025 Payal Knowles Tick bite W57.XXXA a nd Lyme disease A69.20 [facility] [address] [place], [place] [id number] 04/22/2025 R Roderick Flaquito HTN (hypertension) I 10 ; Hypotension due to medication I95.2 and ASCVD (arteriosclerotic cardiovascular disease) I25.10 [facility] [address] [place], [place] [id number] 06/10/2025 R Roderick Flaquito Neurological deficit present R29.818 and Encounter for immunization Z23 [facility] [address] [place], [place] [id number] 10/07/2024 R Roderick Flaquito [facility] [address] [place], [place] [id number] 11/28/2024 R Roderick Flaquito [facility] [address] [place], [place] [id number] 11/28/2024 R Roderick Flaquito [facility] [address] [place], [place] [id number] 12/02/2024 R Roderick Flaquito [facility] [address] [place], [place] [id number] 01/08/2025 R Roderick Flaquito [facility] [address] [place], [place] [id number] 03/08/2025 R Roderick Flaquito [facility] [address] [place], [place] [id number] 03/16/2025 R Roderick Flaquito [facility] [address] [place] [id number] 04/08/2025 Jenise Huddleston Assessments Encounter Date Diagnosis (ICD [...] - A69.20) will Txm as Lyme disease 04/22/2025 HTN (hypertension) (ICD-10 - I10) 04/22/2025 Hypotension due to medication (ICD-10 - I95.2) 06/10/2025 Encounter for immunization (ICD-10 - Z23) 06/10/2025 Neurological deficit present (ICD-10 - R29.818) 04/22/2025 ASCVD (arteriosclerotic cardiovascular disease) (ICD-10 - I25.10) 11/26/2024 HTN (hypertension) (ICD-10 - I10) 11/26/2024 [...] Test Test Name Order Date Echocardiogram 03/04/2025 Carotid Duplex 06/10/2025 MRI : Brain w/o contrast 06/10/2025 Next Appt Details Provider Name:Jenise Ram, 07/24/2025 09:30:00 AM, [address], [place], [id number], Insurance Providers Payer Name Payer Address Payer Phone Subscriber Number Group Number Insured Name Patient Relationship to Insured Coverage Start Date Coverage End Date MEDICARE PART B [address] [address] [place] [address] [id number] ELAINA HENDERSON Self - patient is the insured [employer] [address] [address] [place] [address] [id number] ELAINA HENDERSON Self - patient is the insured Medical (General) History Medical History History ICD Code Hypertension hyperlipidemia Hypothyroidism GERD BPH Cervical radiculopathy - WC Hearing loss Hx of adenomatous colon polyp OA COVID 19 04/2021 ASCVD - s/p stent x 4/ [facility] Surgical History Surgery Date(Month/Year) C-scope with adenomatous polyp - Dr. Ja conde 2005 Partial thyroidectomy - Dr. Tuttle 07/14 12 Normal heart cath/ Dr. Lim 01/2016 Cervical discectomy, hemicorpectomy, fus ion - Dr. Blake 03/2017 Urolift procedure 03/11/2022 [facility]/ stent x Sherry/ [facility] 03/2025 Hospitalization History Reason Date(Month/Year) [facility] ER - Dog Bite 2023 [facility]-uncontrolled hypertension\intractabl e neck pain 10/2020 [facility]- neck surgery 04/10- [facility] ER-piece of steel removed from right arm 09/2014
--- NOTE | 2025-06-20 10:59 | CA_ITS ---
FINAL REPORT TECHNIQUE: Bradley scale, color and spectral doppler images of the bilateral carotid arteries were obtained. CLINICAL HISTORY: Neurologic deficit, CAD COMPARISON: None FINDINGS: Peak systolic velocity in the right internal carotid artery is 167 cm/sec. The internal carotid to common carotid artery ratio is 2.11. There is no significant carotid artery stenosis and minimal plaque formation. The right internal carotid artery is markedly tortuous. The right vertebral artery is normal in direction. Peak systolic velocity in the left internal carotid artery is 102 cm/sec. The internal carotid to common carotid artery ratio is 1.3. There is no significant carotid artery stenosis and minimal plaque formation. The left vertebral artery is normal in direction. IMPRESSION: No ultrasound evidence of hemodynamically significant carotid artery stenosis. Normal peak systolic velocities and normal internal to common carotid artery ratios bilaterally. Reviewed, Interpreted and Dictated by Jaylan Grewal MD Transcribed by Ruma No Authenticated and [facility]
== END 2025-06-20 23:59 | disposition home or self-care (01) ==
LOC: RAD 10:19
PROVIDERS: PCP Family Medicine; Visit Provider Family Medicine
DX: I25.10 Atherosclerotic heart disease of native coronary artery without angina pectoris (principal); G31.9 Degenerative disease of nervous system, unspecified; I67.82 Cerebral ischemia; R09.89 Other specified symptoms and signs involving the circulatory and respiratory systems; R29.818 Other symptoms and signs involving the nervous system
CPT/HCPCS: 70551; 93880